=== PATIENT | female | born 1965 | race Caucasian/White ===

== ENCOUNTER 2021-02-01 11:10 | Emergency (ER) | payer MEDICARE, SELFPAY ==
[2021-02-01 11:53] VITALS: BP 151/91; PULSE 79; RESP 18; TEMP 36.8; O2SAT 100
--- NOTE | 2021-02-01 11:58 | DI.RAD.S_ITS ---
PROCEDURE: XR KNEE RT 3V INDICATIONS: right knee pain TECHNIQUE: 3 views of the knee were acquired. COMPARISON: None. FINDINGS: Bones: No fractures or dislocations. Mild cortical irregularity of the lateral femoral condyle. No suspicious bony lesions. Soft tissues: Trace joint effusion. No suspicious soft tissue calcifications. IMPRESSION: 1. No definitive acute abnormalities. 2. Mild cortical irregularity in the lateral femoral condyle. 3. A soft tissue density is noted in the medial aspect of the distal thigh. Differential diagnosis include hematoma, mass or artifact. Please correlate clinically. If clinically indicated, MRI may be helpful. Dictated by: Zev Morgan M.D. on 02/01/2021 at 12:49 Approved by: Zev Morgan M.D. on 02/01/2021 at 12:52
[2021-02-01] MEDS: CYCLOBENZAPRINE 10 MG TABLET PO (14:09)
[2021-02-01] MEDS: LIDOCAINE PATCH 1 EACH ADH..PATCH TOP (14:09)
--- NOTE | 2021-02-01 14:28 | ED_ITS ---
HPI - Extremity Injury (Lower) <ROCIO Dale-BC - Last Filed: 02/01/21 18:27> General Chief Complaint: Extremity Injury, Lower Stated Complaint: Rt knee injury Time Seen by Provider: 02/01/21 13:29 Source: patient Mode of arrival: Wheelchair Limitations: no limitations History of Present Illness HPI Narrative: The patient is a 55-year-old female nonsmoker who presents with a chief complaint of left knee pain for the past 3 weeks. She states that she was helping her daughter in her closet when she twisted her left knee and he did on the side of a wall. She states her knee now feels unstable. She went to a walk-in clinic a week after this happened, states that she has an appointment with Orthopedics at [facility]. However this appointment is not for almost 2 months. She presents today requesting an MRI of her knee. She does note that her pain has been worse over the past few days, correlating with increase in activity. She states that she uses Tylenol during the day, and is on chronic narcotics at night for her back pain. She has not taken anything for pain today. She states that she is allergic to NSAIDs. Related Data Previous Rx's Medication Instructions Recorded lidocaine 5 % topical patch 1 patch TOPICAL DAILY PRN #15 ea 02/01/21 Allergies Allergy/AdvReac Type Severity Reaction Status Date / Time metaxalone [From Skelaxin] Allergy Severe Anaphylaxis Verified 02/01/21 11:53 Sulfa (Sulfonamide Allergy Severe Anaphylaxis Verified 02/01/21 11:53 Antibiotics) Review of Systems <RICHARD Dale - Last Filed: 02/01/21 18:27> Review of Systems Narrative: GENERAL: Denies chills, fatigue, malaise, fever, sweats. HEENT: Denies sinus pain, ear pain, sore throat, difficulty swallowing, dizziness. RESPIRATORY: Denies dyspnea, cough, wheezing, hemoptysis, sputum. CARDIOVASCULAR: Denies chest pain, palpitations, orthopnea, edema, GASTROINTESTINAL: Denies nausea, vomiting, abdominal pain, diarrhea, constipation, melena. : Denies dysuria, frequency, incontinence, hematuria, urinary retention. MUSCULOSKELETAL: See HPI SKIN: Denies rash, skin lesions, or other NEUROLOGIC: Denies weakness, headache, numbness, change in speech, confusion, seizures, incoordination. PSYCHIATRIC: No concerning psychosocial issues. 12 point review of systems is negative except for those stated above Patient History <RICHARD Dale - Last Filed: 02/01/21 18:27> Social History Smoking Status: Never smoker Smoking Status: Never smoker alcohol intake frequency: holidays/special occasions only Substance Use Type: prescription drug Exam <RICHARD Dale - Last Filed: 02/01/21 18:27> Narrative Exam Narrative: GENERAL: This is a well-nourished, well-developed patient, in no acute distress EYES: Pupils equal round and reactive. Extraocular motions intact. No scleral icterus. No injection or drainage. ENT: Nose without bleeding, purulent drainage or septal hematoma. Wearing a mask. Airway patent. NECK: Trachea midline. No JVD or lymphadenopathy. Supple, nontender, no meningeal signs. CARDIOVASCULAR: Regular rate and rhythm RESPIRATORY: No cough. No increased respiratory effort. No accessory muscle use EXTREMITIES: Diffuse pain to palpation noted right knee, pain on anterior and posterior drawer, negative varus and valgus. Positive pedal pulses right foot. BACK: Nontender without deformity or crepitance. No flank tenderness. NEURO: AOx3. SKIN: No rash or erythema on visible skin Initial Vital Signs Initial Vital Signs: Vital Signs Temperature 98.2 F 02/01/21 11:53 Pulse Rate 79 02/01/21 11:53 Respiratory Rate 18 02/01/21 11:53 Blood Pressure 151/91 H 02/01/21 11:53 Pulse Oximetry 100 02/01/21 11:53 <Bigg Spivey DO - Last Filed: 02/02/21 07:16> Initial Vital Signs Initial Vital Signs: Vital Signs Temperature 98.2 F 02/01/21 11:53 Pulse Rate 79 02/01/21 11:53 Respiratory Rate 18 02/01/21 11:53 Blood Pressure 151/91 H 02/01/21 11:53 Pulse Oximetry 100 02/01/21 11:53 Procedures <RICHARD Dale - Last Filed: 02/01/21 18:27> Orthopedic Splinting/Casting Injury #1: Side: right Lower Extremity Injury Location: knee Lower Extremity Immobilizer: Mike wrap Post splinting neuro exam: intact Post splinting vascular exam: intact Placed by: Nursing Scores <RICHARD Dale - Last Filed: 02/01/21 18:27> GCS [place] coma scale eye opening: Spontaneous [place] coma scale verbal response: Orientated Nany coma scale motor response: Obey commands [place] coma scale total score: 15 <Bigg Spivey DO - Last Filed: 02/02/21 07:16> GCS Nany coma scale total score: 15 Course <RICHARD Dale - Last Filed: 02/01/21 18:27> Orders Ordered: Discontinued Medications Acetaminophen (Acetaminophen 325 Mg Tablet) 975 mg PO NOW ONE Stop: 02/01/21 15:01 Last Admin: 02/01/21 15:10 Dose: 975 mg Documented by: MELVIN Cyclobenzaprine HCl (Cyclobenzaprine 10 Mg Tablet) 10 mg PO NOW ONE Stop: 02/01/21 14:01 Last Admin: 02/01/21 14:09 Dose: 10 mg Documented by: BRI Gabapentin (Gabapentin 100 Mg Capsule) 100 mg PO NOW ONE Stop: 02/01/21 15:01 Last Admin: 02/01/21 15:23 Dose: Not Given Documented by: MELVIN Lidocaine (Lidocaine Patch 1 Each Adh..Patch) 1 each TOP NOW ONE Stop: 02/01/21 14:01 Last Admin: 02/01/21 14:09 Dose: 1 each Documented by: BRI Vital Signs Vital signs: Vital Signs - 8 hr 02/01/21 11:53 02/01/21 15:28 Temperature 98.2 F Pulse Rate 79 74 Respiratory Rate 18 17 Blood Pressure 151/91 H 162/86 H Pulse Oximetry 100 100 <Bigg Spivey DO - Last Filed: 02/02/21 07:16> Orders Ordered: Discontinued Medications Acetaminophen (Acetaminophen 325 Mg Tablet) 975 mg PO NOW ONE Stop: 02/01/21 15:01 Last Admin: 02/01/21 15:10 Dose: 975 mg Documented by: MELVIN Cyclobenzaprine HCl (Cyclobenzaprine 10 Mg Tablet) 10 mg PO NOW ONE Stop: 02/01/21 14:01 Last Admin: 02/01/21 14:09 Dose: 10 mg Documented by: BRI Gabapentin (Gabapentin 100 Mg Capsule) 100 mg PO NOW ONE Stop: 02/01/21 15:01 Last Admin: 02/01/21 15:23 Dose: Not Given Documented by: MELVIN Lidocaine (Lidocaine Patch 1 Each Adh..Patch) 1 each TOP NOW ONE Stop: 02/01/21 14:01 Last Admin: 02/01/21 14:09 Dose: 1 each Documented by: BRI Vital Signs Vital signs: Vital Signs - 8 hr 02/01/21 11:53 02/01/21 15:28 Temperature 98.2 F Pulse Rate 79 74 Respiratory Rate 18 17 Blood Pressure 151/91 H 162/86 H Pulse Oximetry 100 100 [facility] - Extremity Injury (Lower) <ROCIO Dale-BC - Last Filed: 02/01/21 18:27> Imaging Data Extremity x-ray #1: Radiologist's Impression: [address] [place] [address] XRay Report Signed Patient: Samra Abdullahi MR#: [id number] : 1965 Acct:[id number] Age/Sex: 55 / F Date of Service: 02/01/21 Loc: ED Accession Number: [id number] ?? Procedure: XR knee RT 3V Ordering Provider: Bigg Spivey D.O. PROCEDURE:? XR KNEE RT 3V ? INDICATIONS:? right knee pain ? TECHNIQUE:? 3 views of the knee were acquired.? ? COMPARISON:? None. ? FINDINGS:? ? Bones:? No fractures or dislocations.? Mild cortical irregularity of the lateral femoral condyle.? No suspicious bony lesions.? ? Soft tissues:? Trace joint effusion.? No suspicious soft tissue calcifications.? ? ? IMPRESSION:? ? 1. No definitive acute abnormalities. 2. Mild cortical irregularity in the lateral femoral condyle. 3.? A soft tissue density is noted in the medial aspect of the distal thigh.? Differential diagnosis include hematoma, mass or artifact.? Please correlate clinically.? If clinically indicated, MRI may be helpful. ? ? Dictated by: Zev Morgan M.D. on 02/01/2021 at 12:49 ? ? Approved by: Zev Morgan M.D. on 02/01/2021 at 12:52?? [facility] Narrative Medical decision making narrative: The patient is a 55-year-old female who presents with a chief complaint of knee pain from a twisting impact injury 3 weeks ago. She had negative x-rays at the walk-in clinic two weeks ago. She is neurovascularly intact, feels improved after the above-stated therapies, but declines prescriptions of Flexeril due to another doctor taking care of her back pain. I discussed at length follow up with primary care provider, continued follow-up with orthopedics as she has scheduled. Discussed the possibility of a soft tissue injury, also did discussed the possibility of a soft tissue density seen on x-ray and encouraged follow-up primary care provider regarding this. Patient is able to ambulate well, states complaint improved control of pain. Patient has no questions or concerns upon discharge states understanding return precautions as well as follow-up care. She has been nontoxic and neurovascularly intact throughout her stay in the ER. Discharge Plan Departure Patient Disposition: Home Clinical Impression: Acute knee pain Qualifiers: Laterality: right Qualified Code(s): M25.561 - Pain in right knee Instructions: DI for Knee Sprain, How To Perform RICE (Rest, Ice, Compress, Elevate), DI for Knee Pain, How to Apply an Elastic Wrap on Knee Activity Restrictions/Additional Instructions: Thank you for trusting us with your care today. As I discussed, your x-ray shows no acute fracture. This does not rule out a soft tissue injury such as a ligament or tendon injury. It is important that y ou follow up with primary care provider, especially if worsening or no improvement. There can be fractures that did not show up on initial x-ray. As discussed, there is a soft tissue irregularity on your lower thigh. Please follow-up with primary care provider, you may need further imaging regarding this. I did send a prescription of lidocaine patches to [facility] in [place] I suggest keeping your appointment with Orthopedics. I have included information regarding how to Mike wrap your knee. Please come back to the emergency department for any acute concerns. Prescriptions: New lidocaine 5 % adhesive patch,medicated 1 patch topical DAILY PRN (Reason: pain ) Qty: 15 RF: 0 Referrals: Guerrero Gilman MD [Non-Staff] - <Bigg Spivey DO - Last Filed: 02/02/21 07:16> Cosign ED Attending Cosignature Attestation: Dr Spivey Co-Sign Statement: I was available for consultation during this patient's emergency department visit. This chart is signed by myself for administrative purposes only. I did not have direct contact with this patient during this visit. They were seen independently by the APC.
[2021-02-01] MEDS: ACETAMINOPHEN 325 MG TABLET 975 MG PO (15:10)
--- NOTE | 2021-02-01 15:25 | PC.NURSE ---
Applied Mike wrap to the right knee. Patient teaching on how to apply it herself. Patient declined the Gabapentin.
[2021-02-01 15:28] VITALS: BP 162/86; PULSE 74; RESP 17; O2SAT 100
== END 2021-02-01 15:53 | disposition home or self-care (01) ==
PROVIDERS: Emergency Provider Nurse Practitioner Family
DX: M25.561 Pain in right knee (principal)
CPT/HCPCS: 73562; 99283

== ENCOUNTER 2021-07-28 08:17 | Emergency (ER) | payer MEDICARE, SELFPAY ==
[2021-07-28 08:29] VITALS: BP 167/87; PULSE 83; RESP 18; O2SAT 100; BMI 32.2
--- NOTE | 2021-07-28 08:47 | DI.CT.S_ITS ---
PROCEDURE: CT ABDOMEN PELVIS W CON INDICATIONS: IV contrast only/lower abdominal pain TECHNIQUE: After the administration of intravenous contrast, axial sections acquired from the lung bases to the pubic symphysis. Coronal and sagittal reformats were performed. For radiation dose reduction, the following was used: automated exposure control, adjustment of mA and/or kV according to patient size. COMPARISON: None. FINDINGS: Image quality: Excellent. Lung bases: Lung bases are clear. Heart size is normal. Solid organs: Liver: The liver has no mass or intrahepatic biliary ductal dilatation. The portal vein and hepatic veins are patent. The liver has hepatic steatosis. Biliary: The gallbladder has no gallstones, pericholecystic fluid, gallbladder wall thickening, or surrounding inflammatory change. Pancreas: The pancreas has no mass or ductal dilatation. There is no surrounding inflammation. Spleen: Normal size. There are no masses. Adrenals: No hypertrophy or nodules. Kidneys: No obstructive calculus or hydronephrosis. No solid mass. No cystic mass. Peritoneum and bowel: The distal esophagus and stomach are normal. The small bowel has a normal caliber and appearance. The terminal ileum is normal. The large bowel has a normal caliber and appearance. The appendix is not definitively visualized and therefore acute appendicitis cannot be excluded; however there are no secondary findings to suggest acute appendicitis. No free fluid or air. Nodes and vessels: No retroperitoneal or mesenteric adenopathy by size criteria. Aorta and inferior vena cava are normal in size. Miscellaneous: No abdominal wall mass or hernia. PELVIS: Genitourinary: The bladder has no wall thickening or mass. No bladder calcifications. Bones: No suspicious bony lesions. No vertebral body compression fractures. IMPRESSION: No acute abdominal or pelvic abnormality. Dictated by: Kamari Fernando M.D. on 07/28/2021 at 9:12 Approved by: Kamari Fernando M.D. on 07/28/2021 at 9:21
--- NOTE | 2021-07-28 08:52 | ED_ITS ---
HPI - Abdominal Pain General Chief Complaint: Abdominal Pain Stated Complaint: abd pain burning & bleeding bowel movements Time Seen by Provider: 07/28/21 08:46 Source: patient Mode of arrival: Ambulatory History of Present Illness HPI narrative: Patient here for left lower quadrant abdominal discomfort as well as left upper quadrant. Started 1 week ago. Three days ago started with watery diarrhea and sometimes mixed with blood. History of colonoscopy in the past. Was informed has diverticulosis. Also history of IBS. Denies any sick contacts. No urinary complaints. Pain is crampy and sharp pain. It does not radiate. brought patient here this morning. Patient is allergic to tramadol but is not allergic to morphine and Dilaudid. She has had those before. Related Data Previous Rx's Medication Instructions Recorded lidocaine 5 % topical patch 1 patch TOPICAL DAILY PRN #15 ea 02/01/21 hydrocodone 5 mg-acetaminophen 325 1 tab PO Q6H PRN #14 tab 07/28/21 mg tablet ondansetron 4 mg disintegrating 4 mg PO Q8H PRN #10 tab 07/28/21 tablet Allergies Allergy/AdvReac Type Severity Reaction Status Date / Time metaxalone [From Skelaxin] Allergy Severe Anaphylaxis Verified 07/31/21 16:26 Sulfa (Sulfonamide Allergy Severe Anaphylaxis Verified 07/31/21 16:26 Antibiotics) tramadol Allergy Anaphylaxis Verified 07/31/21 16:26 ssri Allergy Anaphylaxis Uncoded 07/31/21 16:26 Review of Systems Review of Systems Narrative: GENERAL: Denies chills, fatigue, malaise, fever, sweats. HEENT: Denies sinus pain, ear pain, sore throat RESPIRATORY: Denies dyspnea, cough CARDIOVASCULAR: Denies chest pain, palpitations GASTROINTESTINAL: Denies nausea, vomiting, positive for diarrhea and abdominal pain : Denies dysuria, frequency, hematuria MUSCULOSKELETAL: denies muscle or bony pain SKIN: Denies rash, skin lesions NEUROLOGIC: Denies weakness, numbness ROS Unobtainable: All systems reviewed & are unremarkable except as noted in HPI and below Patient History Social History Smoking Status: Never smoker Smoking Status: Never smoker alcohol intake frequency: holidays/special occasions only Substance Use Type: prescription drug Exam Narrative Exam Narrative: GENERAL: in no distress, not toxic not dyspneic HEAD: Normocephalic. EYES: Pupils equal round No scleral icterus. NECK: Trachea midline. CARDIOVASCULAR: Regular rate and rhythm without murmurs RESPIRATORY: Clear to auscultation. Breath sounds equal bilaterally. No wheezes, rales, or rhonchi. GASTROINTESTINAL: Abdomen soft, reproducible left upper quadrant and left lower quadrant tenderness, no peritoneal signs, bowel sounds are present. EXTREMITIES: No gross deformities. BACK: No flank tenderness. NEURO: AOx4. SKIN: Warm and dry PSYCH: Not anxious, is cooperative Initial Vital Signs Initial Vital Signs: Vital Signs Pulse Rate 83 07/28/21 08:29 Respiratory Rate 18 07/28/21 08:29 Blood Pressure 167/87 H 07/28/21 08:29 Pulse Oximetry 100 07/28/21 08:29 Course Course Course Narrative: No new issues during course of stay Orders Ordered: Discontinued Medications Hydrocodone Bitart/Acetaminophen (Hydrocodone/Acet 5/325 Tablet) 2 tab PO NOW ONE Stop: 07/28/21 10:12 Last Admin: 07/28/21 10:14 Dose: 2 tab Documented by: SEVERIANO Sodium Chloride (Normal Saline 0.9%) 1,000 mls @ 1,000 mls/hr IV BOLUS ONE Stop: 07/28/21 09:46 Last Infusion: 07/28/21 09:55 Dose: 0 mls/hr Documented by: Admin: 07/28/21 09:01 Dose: 1,000 mls/hr Documented by: SEVERIANO Morphine Sulfate (Morphine 4 Mg/Ml Inj) 4 mg IV NOW ONE Stop: 07/28/21 08:52 Last Admin: 07/28/21 09:01 Dose: 4 mg Documented by: SEVERIANO Ondansetron HCl (Ondansetron 4 Mg/2 Ml Inj) 4 mg IV NOW ONE Stop: 07/28/21 08:52 Last Admin: 07/28/21 09:01 Dose: 4 mg Documented by: SEVERIANO Reevaluation(s) Reevaluation #1: Patient still has left side abdominal pain. at bedside. Reviewed results with them. At this time no focal findings on blood work or imaging to explain her abdominal pain. However at this time appropriate for discharge home and follow-up with primary care as well as colonoscopy referral. I did give patient general surgeon phone number to call today to make appointment. Prescription for pain control given to patient. Return precautions reviewed with him. They do desire discharge home. They desire to be discharged home and not wait for results of viral swab Time: 10:08 Vital Signs Vital signs: Vital Signs - 8 hr 07/28/21 08:29 07/28/21 09:55 Pulse Rate 83 86 Respiratory Rate 18 Blood Pressure 167/87 H 174/105 H Pulse Oximetry 100 99 MDM - Abdominal Pain Differential Diagnosis Differential diagnosis: Likely abdominal pain, acute appendicitis, diverticulitis, gastroenteritis and small bowel obstruction Lab Data Result diagrams: 07/28/21 08:40 07/28/21 08:40 Labs: Lab Results 07/28/21 07/28/21 07/28/21 Range/Units 08:40 08:40 09:48 WBC 10.0 (4.5-11.0) X10^3/uL RBC 4.70 (4.0-5.2) X10^6/uL Hgb 13.8 (12.0-16.0) g/dL Hct 41.4 (36-46) % MCV 87.9 (80-100) fL MCH 29.2 (26-34) PG MCHC 33.3 (30-36) % RDW 13.8 (11.6-14.8) % Plt Count 236 (150-400) X10^3/uL Neut % (Auto) 70.6 (50-75) % Lymph % (Auto) 18.7 L (25-40) % Hill % (Auto) 8.2 (3-14) % Eos % (Auto) 2.0 (2-4) % Baso % (Auto) 0.5 (0-2) % Neut # (Auto) 7000 (6059-2749) /uL Lymph # (Auto) 1900 (4731-5210) /uL Hill # (Auto) 800 (0-900) /uL Eos # (Auto) 200 (0-450) /uL Baso # (Auto) 0 (0-100) /uL Sodium 142 (137-145) mmol/L Potassium 4.7 (3.4-5.1) mmol/L Chloride 105 (98-107) mmol/L Carbon Dioxide 28 (22-32) mmol/L BUN 15 (7-17) mg/dL Creatinine 0.74 (0.52-1.04) mg/dL Estimated GFR > 60 (>60) mL/min BUN/Creatinine Ratio 20.3 (6-22) Glucose 100 (70-100) mg/dL Calcium 9.2 (8.4-10.2) mg/dL Total Bilirubin 0.6 (0.2-1.3) mg/dL AST 57 H (14-36) IU/L ALT 88 H (<35) IU/L Alkaline Phosphatase 110 (38-126) U/L Total Protein 9.0 H (6.3-8.2) g/dL Albumin 4.9 (3.5-5.0) g/dL Globulin 4.1 (1.7-4.1) g/dL Albumin/Globulin Ratio 1.2 (1.0-2.8) Lipase 106 (23-300) U/L Chlamy pneumoniae PCR Not detected (Not Detect) Adenovirus (PCR) Not detected (Not Detect) B. pertussis DNA (PCR) Not detected (Not Detecte) B.parapertussis DNA PCR Not detected (Not Detecte) Coronavirus OC43 (PCR) Not detected (Not Detect) Coronavirus HKU1 (PCR) Not detected (Not Detect) Coronavirus 229E (PCR) Not detected (Not Detect) SARS-CoV-2 (PCR) Not detected (Not Detecte) Coronavirus NL63 (PCR) Not detected (Not Detect) Human Metapneumovir PCR Not detected (Not Detect) Influenza Type A (PCR) Not detected (Not Detect) Influenza Type B (PCR) Not detected (Not Detect) M. pneumoniae (PCR) Not detected (Not Detect) Parainfluenza 1 (PCR) Not detected (Not Detect) Parainfluenza 2 (PCR) Not detected (Not Detect) Parainfluenza 3 (PCR) Not detected (Not Detect) Parainfluenza 4 (PCR) Not detected (Not Detect) RSV (PCR) Not detected (Not Detect) Entero/Rhino (PCR) Not detected (Not Detect) Point of care testing: Point of Care Testing Test Results Negative Urine Dip Bedside Urine Glucose Negative Bedside Urine Bilirubin - Negative Bedside Urine Ketone - Negative Urine Specific [place] 1.030 Bedside Urine Occult Blood - Negative Bedside Urine pH 6.0 Bedside Urine Protein - Negative Bedside Urine Urobilinogen 0.2 Bedside Urine Nitrite - Negative Bedside Urine Leukocytes - Negative Esterase Imaging Data CT scan - abdomen/pelvis: Radiologist's Impression: [address] [id number] [address] Scan Report Signed Patient: Samra Abdullahi MR#: [id number] : 1965 Acct:[id number] Age/Sex: 55 / F Date of Service: 07/28/21 Loc: ED Accession Number: [id number] ?? Procedure: CT abdomen pelvis w con Ordering Provider: Darek Ross MD PROCEDURE:? CT ABDOMEN PELVIS W CON ? INDICATIONS:? IV contrast only/lower abdominal pain ? TECHNIQUE:? After the administration of intravenous contrast, axial sections acquired from the lung bases to the pubic symphysis.? Coronal and sagittal reformats were performed.? For radiation dose reduction, the following was used:? automated exposure control, adjustment of mA and/or kV according to patient size.? ? COMPARISON:? None. ? FINDINGS: Image quality:? Excellent.? ? Lung bases:? Lung bases are clear.? Heart size is normal. ? Solid organs:? Liver: The liver has no mass or intrahepatic biliary ductal dilatation. The portal vein and hepatic veins are patent.? The liver has hepatic steatosis. Biliary: The gallbladder has no gallstones, pericholecystic fluid, gallbladder wall thickening, or surrounding inflammatory change. Pancreas: The pancreas has no mass or ductal dilatation. There is no surrounding inflammation. Spleen: Normal size. There are no masses. Adrenals: No hypertrophy or nodules. Kidneys: No obstructive calculus or hydronephrosis.? No solid mass. No cystic mass. ? Peritoneum and bowel:? The distal esophagus and stomach are normal.? The small bowel has a normal caliber and appearance. The terminal ileum is normal. The large bowel has a normal caliber and appearance.? The appendix is not definitively visualized and therefore acute appendicitis cannot be excluded; however there are no secondary findings to suggest acute appendicitis.? No free fluid or air.? ? Nodes and vessels:? No retroperitoneal or mesenteric adenopathy by size criteria.? Aorta and inferior vena cava are normal in size.? ? Miscellaneous:? No abdominal wall mass or hernia. ? PELVIS:? Genitourinary:? The bladder has no wall thickening or mass. No bladder rachael cifications. ? Bones:? No suspicious bony lesions.? No vertebral body compression fractures.? ? IMPRESSION:? No acute abdominal or pelvic abnormality. ? ? Dictated by: Kamari Fernando M.D. on 07/28/2021 at 9:12 ? ? Approved by: Kamari Fernando M.D. on 07/28/2021 at 9:21 ? MDM Narrative Medical decision making narrative: Appropriate for discharge home. Exam and laboratory studies and imaging otherwise reassuring. Liver enzymes noted on blood work but nonspecific. Patient has left-sided abdominal discomfort. Not right-sided. Patient has had hydrocodone prescriptions in the past. No side effects. Return precautions reviewed with patient and . Referral for general surgeon and colonoscopy given. Not toxic at discharge. Patient and desire discharge home. No antibiotics indicated this time. Appropriate for short course of pain medication, no fever here. White cell count normal. Discharge Plan Departure Patient Disposition: Home Clinical Impression: Abdominal pain Instructions: DI for Abdominal Pain-Adult Activity Restrictions/Additional Instructions: No driving operating machinery today are when taking prescribed pain medication. Please see your family doctor for referral for colonoscopy or call provided general surgeon office today to schedule for colonoscopy. Return if worse or any questions or concerns. Prescriptions: New hydrocodone-acetaminophen 5-325 mg tablet 1 tab PO Q6H PRN (Reason: pain) Qty: 14 0RF ondansetron 4 mg tablet,disintegrating 4 mg PO Q8H PRN (Reason: nausea and vomiting) Qty: 10 0RF No Action lidocaine 5 % adhesive patch,medicated 1 patch topical DAILY PRN (Reason: pain ) Qty: 15 0RF Rx Instructions: leave on most painful area for up to 12 hrs Referrals: Jonn Mills MD [Physician] - Misstephanie,MD Stacey [Primary Care Provider] -
[2021-07-28 08:53] LABS: Add Manual Diff / Slide Review NO; Basophils Absolute Auto 0 /uL (0-100); Basophils Percent Auto 0.5 % (0-2); Eosinophils Absolute Auto 200 /uL (0-450); Hematocrit 41.4 % (36-46); Hemoglobin 13.8 g/dL (12.0-16.0); Lymphocytes Absolute Auto 1900 /uL (1100-4500); Lymphocytes Percent Auto 18.7 % (25-40); Mean Corpuscular HGB Conc 33.3 % (30-36); Mean Corpuscular Hemoglobin 29.2 PG (26-34); Mean Corpuscular Volume 87.9 fL (80-100); Monocytes Absolute Auto 800 /uL (0-900); Monocytes Percent Auto 8.2 % (3-14); Neutrophils Absolute Auto 7000 /uL (1500-7000); Neutrophils Percent Auto 70.6 % (50-75); Platelet Count 236 X10^3/uL (150-400); Red Cell Distribution Width 13.8 % (11.6-14.8)
[2021-07-28] MEDS: MORPHINE 4 MG/ML INJ IV (09:01)
[2021-07-28] MEDS: ONDANSETRON 4 MG/2 ML INJ IV (09:01)
[2021-07-28] MEDS: SODIUM CHLORIDE 0.9% 1,000 ML 1000 ML IV (09:01)
[2021-07-28 09:04] LABS: Alanine Aminotransferase 88 IU/L (<35); Albumin 4.9 g/dL (3.5-5.0); Albumin Globulin Ratio 1.2 (1.0-2.8); Alkaline Phosphatase 110 U/L (38-126); Aspartate Aminotransferase 57 IU/L (14-36); BUN Creatinine Ratio 20.3 (6-22); Bilirubin Total 0.6 mg/dL (0.2-1.3); Blood Urea Nitrogen 15 mg/dL (7-17); Calcium 9.2 mg/dL (8.4-10.2); Carbon Dioxide 28 mmol/L (22-32); Chloride 105 mmol/L (98-107); Estimated Glomerular Filt Rate > 60 mL/min (>60); Globulin 4.1 g/dL (1.7-4.1); Glucose 100 mg/dL (70-100); Lipase 106 U/L (23-300); Potassium 4.7 mmol/L (3.4-5.1); Sodium 142 mmol/L (137-145)
[2021-07-28 09:07] LABS: HEMOLYSIS 52 (0-50)
[2021-07-28 09:55] VITALS: BP 174/105; PULSE 86; O2SAT 99
[2021-07-28] MEDS: HYDROCODONE/ACET 5/325 TABLET 2 TAB PO (10:14)
[2021-07-28 11:05] LABS: Adenovirus Not Detected (Not Detect); B. parapertussis Not Detected (Not Detecte); Bordetella pertussis Not Detected (Not Detecte); Chlamydophila pneumoniae Not Detected (Not Detect); Coronavirus 229E Not Detected (Not Detect); Coronavirus HKU1 Not Detected (Not Detect); Coronavirus NL 63 Not Detected (Not Detect); Coronavirus OC43 Not Detected (Not Detect); Human Metapneumovirus Not Detected (Not Detect); Human Rhinovirus/Enterovirus Not Detected (Not Detect); Influenza A Not Detected (Not Detect); Influenza B Not Detected (Not Detect); Mycoplasma pneumoniae Not Detected (Not Detect); Parainfluenza Virus 1 Not Detected (Not Detect); Parainfluenza Virus 2 Not Detected (Not Detect); Parainfluenza Virus 3 Not Detected (Not Detect); Parainfluenza Virus 4 Not Detected (Not Detect); Respiratory Syncytial Virus Not Detected (Not Detect); SARS- CoV-2 Not Detected (Not Detecte)
== END 2021-07-28 10:17 | disposition home or self-care (01) ==
PROVIDERS: Emergency Provider Emergency Medicine
DX: R10.12 Left upper quadrant pain (principal); R10.32 Left lower quadrant pain; R19.7 Diarrhea, unspecified
CPT/HCPCS: 36415; 74177; 80053; 81003; 81025; 83690; 85025; 87633; 96374; 96375; 99284; J2270; J2405; Q9967

== ENCOUNTER 2021-07-31 13:19 | Emergency (ER) | payer MEDICARE, SELFPAY ==
[2021-07-31] VITALS (9 sets, daily range): BP systolic 153–177; BP diastolic 74–124; PULSE 74–89; RESP 20; TEMP 36.6–37; O2SAT 95–100
--- NOTE | 2021-07-31 13:45 | PC.NURSE ---
pt not found in waiting room or surrounding areas x2 checks 1340
[2021-07-31 14:32] LABS: Add Manual Diff / Slide Review NO; Basophils Absolute Auto 0 /uL (0-100); Basophils Percent Auto 0.4 % (0-2); Eosinophils Absolute Auto 200 /uL (0-450); Eosinophils Percent Auto 2.8 % (2-4); Hematocrit 41.5 % (36-46); Hemoglobin 13.8 g/dL (12.0-16.0); Lymphocytes Absolute Auto 2200 /uL (1100-4500); Lymphocytes Percent Auto 25.6 % (25-40); Mean Corpuscular HGB Conc 33.3 % (30-36); Mean Corpuscular Hemoglobin 29.2 PG (26-34); Mean Corpuscular Volume 87.7 fL (80-100); Monocytes Absolute Auto 600 /uL (0-900); Monocytes Percent Auto 7.6 % (3-14); Neutrophils Absolute Auto 5400 /uL (1500-7000); Neutrophils Percent Auto 63.6 % (50-75); Platelet Count 227 X10^3/uL (150-400); Red Blood Cell Count 4.74 X10^6/uL (4.0-5.2); Red Cell Distribution Width 13.9 % (11.6-14.8); White Blood Cell Count 8.4 X10^3/uL (4.5-11.0)
[2021-07-31 14:36] LABS: Alanine Aminotransferase 91 IU/L (<35); Albumin Globulin Ratio 1.2 (1.0-2.8); Alkaline Phosphatase 115 U/L (38-126); Aspartate Aminotransferase 53 IU/L (14-36); BUN Creatinine Ratio 22.5 (6-22); Bilirubin Total 0.4 mg/dL (0.2-1.3); Blood Urea Nitrogen 16 mg/dL (7-17); Carbon Dioxide 28 mmol/L (22-32); Chloride 104 mmol/L (98-107); Estimated Glomerular Filt Rate > 60 mL/min (>60); Globulin 4.2 g/dL (1.7-4.1); Glucose 111 mg/dL (70-100); HEMOLYSIS < 15 (0-50); Lipase 41 U/L (23-300); Potassium 4.1 mmol/L (3.4-5.1); Sodium 142 mmol/L (137-145); Total Protein 9.2 g/dL (6.3-8.2)
--- NOTE | 2021-07-31 16:06 | ED_ITS ---
HPI - Abdominal Pain <Miladis Mitchell PA-C - Last Filed: 07/31/21 18:25> General Chief Complaint: Abdominal Pain Stated Complaint: Stomach pain Time Seen by Provider: 07/31/21 16:00 Source: patient Mode of arrival: Ambulatory History of Present Illness HPI narrative: 55-year-old female with past medical history hypertension, IBS presents to the ED with abdominal pain, diarrhea. Patient states that her symptoms 1st started 10 days ago with epigastric pain, left lower quadrant pain, diarrhea. Patient was seen in the ED on 07/28/2021 for the same symptoms, had negative labs and CT abdomen pelvis. Patient reports that her symptoms have worsened since then, and that she noticed a small amount of blood in her stool this morning. Patient called her GI specialist Renetta Muniz in the [facility], spoke with the nurse, who sent her to the ED for further evaluation. The GI office was consulted by phone, and their recommendation was to do a stool study, rule out dehydration, repeat a CT if abdominal exam is not benign. Patient denies fever, chills, chest pain, shortness of breath, nausea, vomiting, dysuria, flank pain. Patient endorses epigastric pain, left lower quadrant pain that she describes as cramping. Related Data Previous Rx's Medication Instructions Recorded lidocaine 5 % topical patch 1 patch TOPICAL DAILY PRN #15 ea 02/01/21 hydrocodone 5 mg-acetaminophen 325 1 tab PO Q6H PRN #14 tab 07/28/21 mg tablet ondansetron 4 mg disintegrating 4 mg PO Q8H PRN #10 tab 07/28/21 tablet Allergies Allergy/AdvReac Type Severity Reaction Status Date / Time metaxalone [From Skelaxin] Allergy Severe Anaphylaxis Verified 07/31/21 16:26 Sulfa (Sulfonamide Allergy Severe Anaphylaxis Verified 07/31/21 16:26 Antibiotics) tramadol Allergy Anaphylaxis Verified 07/31/21 16:26 ssri Allergy Anaphylaxis Uncoded 07/31/21 16:26 Review of Systems <Miladis Mitchell PA-C - Last Filed: 07/31/21 18:25> Review of Systems ROS Unobtainable: All systems reviewed & are unremarkable except as noted in HPI and below Constitutional Constitutional: Denies chills, Denies fatigue, Denies fever(s), Denies frequent falls, Denies lethargy and Denies weakness Eyes Eyes: Denies change in vision, Denies eye discharge, Denies irritation and Denies loss of vision ENT Ears, Nose, Mouth, and Throat: Denies change in voice, Denies dizziness, Denies neck pain, Denies sore throat and Denies throat swelling Cardiovascular Cardiovascular: Denies chest pain, Denies irregular heart rhythm, Denies lightheadedness, Denies palpitations, Denies dyspnea, Denies dyspnea on exertion and Denies orthopnea Respiratory Respiratory: Denies cough, Denies dyspnea, Denies dyspnea on exertion and Denies wheezing Gastrointestinal Gastrointestinal: Reports abdominal pain, Denies change in bowel habits, Reports diarrhea, Denies nausea and Denies vomiting Comments: Blood in stool Genitourinary Genitourinary: Denies hematuria, Denies flank pain, Denies urinary incontinence and Denies urinary urgency Musculoskeletal Musculoskeletal: Denies back pain, Denies muscle weakness, Denies neck pain, Denies numbness and Denies tingling Integumentary/Breasts Skin/Breast: Denies pruritus, Denies erythema, Denies rash and Denies wounds Neurologic Neurologic: Denies behavioral changes, Denies confusion, Denies dizziness, Denies frequent falls, Denies loss of vision, Denies numbness, Denies tingling and Denies weakness Psychiatric Psychiatric: Denies anxiety, Denies behavioral changes, Denies confusion, Denies depression, Denies homicidal ideation and Denies suicidal ideation Endocrine Endocrine: Denies fatigue, Denies flushing and Denies palpitations Hematologic/Lymphatic Hematologic/Lymphatic: Denies easy bruising Allergic/Immunologic Allergic/Immunologic: Denies urticaria, Denies throat swelling and Denies wheezing Patient History <Miladis Mitchell PA-C - Last Filed: 07/31/21 18:25> Social History Smoking Status: Never smoker Smoking Status: Never smoker alcohol intake frequency: holidays/special occasions only Substance Use Type: prescription drug Exam <Miladis Mitchell PA-C - Last Filed: 07/31/21 18:25> Initial Vital Signs Initial Vital Signs: Vital Signs Temperature 97.8 F 07/31/21 13:58 Pulse Rate 83 07/31/21 13:58 Respiratory Rate 20 07/31/21 13:58 Blood Pressure 169/96 H 07/31/21 13:58 Pulse Oximetry 99 07/31/21 13:58 Const General: cooperative, healthy appearing and comfortable Eyes General: Yes appearance normal, both eyes and all related structures Resp Effort & Inspection: normal respiratory effort Auscultation: clear to auscultation bilaterally Cardio Rate: regular rate Rhythm: regular rhythm GI Other: Abdomen is soft, nondistended. Abdomen is significantly tender to palpation in the epigastric, lower left quadrant, suprapubic regions. No CVA tenderness. Skin General: no rashes or lesions noted Neuro General: patient alert, patient awake and patient oriented x3 Psych Appearance: grossly normal Mental Status: mental status grossly normal <Jenifer Paz DO - Last Filed: 08/02/21 07:54> Initial Vital Signs Initial Vital Signs: Vital Signs Temperature 97.8 F 07/31/21 13:58 Pulse Rate 83 07/31/21 13:58 Respiratory Rate 20 07/31/21 13:58 Blood Pressure 169/96 H 07/31/21 13:58 Pulse Oximetry 99 07/31/21 13:58 Course <Miladis Mitchell PA-C - Last Filed: 07/31/21 18:25> Orders Ordered: Discontinued Medications Al Hydrox/Mg Hydrox/Simethicone 20 ml/ Lidocaine HCl 15 ml 0 ml PO NOW ONE Stop: 07/31/21 16:23 Last Admin: 07/31/21 16:31 Dose: 45 ml Documented by: MOON Famotidine (Famotidine 20 Mg/2 Ml Vial) 40 mg IV NOW FOR[facility]LY [facility], 1928–1983 Famotidine (Famotidine 20 Mg/2 Ml Vial) 20 mg IV NOW FORMERLY [facility], [facility]1983 Last Admin: 07/31/21 16:32 Dose: 20 mg Documented by: MICHELLETE Famotidine (Famotidine 20 Mg/2 Ml Vial) 20 mg IV NOW FORMERLY [facility], 1928–1983 Last Admin: 07/31/21 16:32 Dose: 20 mg Documented by: MICHELLETE Morphine Sulfate (Morphine 4 Mg/Ml Inj) 4 mg IV NOW ONE Stop: 07/31/21 16:23 Last Admin: 07/31/21 16:33 Dose: 4 mg Documented by: MICHELLETE Morphine Sulfate (Morphine 4 Mg/Ml Inj) 4 mg IV NOW ONE Stop: 07/31/21 18:05 Last Admin: 07/31/21 18:22 Dose: 4 mg Documented by: BTONER Vital Signs Vital signs: Vital Signs - 8 hr 07/31/21 13:58 07/31/21 15:43 07/31/21 15:44 Temperature 97.8 F Pulse Rate 83 79 Respiratory Rate 20 Blood Pressure 169/96 H 165/124 H Pulse Oximetry 99 95 97 07/31/21 16:00 07/31/21 16:01 07/31/21 16:30 Temperature Pulse Rate 85 85 78 Respiratory Rate Blood Pressure 153/74 H Pulse Oximetry 100 100 99 07/31/21 16:43 07/31/21 17:00 Temperature Pulse Rate 80 89 Respiratory Rate Blood Pressure 177/99 H Pulse Oximetry 99 99 <Jenifer Paz, DO - Last Filed: 08/02/21 07:54> Orders Ordered: Discontinued Medications Al Hydrox/Mg Hydrox/Simethicone 20 ml/ Lidocaine HCl 15 ml 0 ml PO NOW ONE Stop: 07/31/21 16:23 Last Admin: 07/31/21 16:31 Dose: 45 ml Documented by: MOON Famotidine (Famotidine 20 Mg/2 Ml Vial) 40 mg IV NOW FOR[facility]LY [facility], [facility]1983 Famotidine (Famotidine 20 Mg/2 Ml Vial) 20 mg IV NOW [facility], [facility] Last Admin: 07/31/21 16:32 Dose: 20 mg Documented by: MOON Famotidine (Famotidine 20 Mg/2 Ml Vial) 20 mg IV NOW FOR[facility]LY [facility], [facility]1983 Last Admin: 07/31/21 16:32 Dose: 20 mg Documented by: MOON Morphine Sulfate (Morphine 4 Mg/Ml Inj) 4 mg IV NOW ONE Stop: 07/31/21 16:23 Last Admin: 07/31/21 16:33 Dose: 4 mg Documented by: MOON Morphine Sulfate (Morphine 4 Mg/Ml Inj) 4 mg IV NOW ONE Stop: 07/31/21 18:05 Last Admin: 07/31/21 18:22 Dose: 4 mg Documented by: BTONER Vital Signs Vital signs: Vital Signs - 8 hr 07/31/21 13:58 07/31/21 15:43 07/31/21 15:44 Temperature 97.8 F Pulse Rate 83 79 Respiratory Rate 20 Blood Pressure 169/96 H 165/124 H Pulse Oximetry 99 95 97 07/31/21 16:00 07/31/21 16:01 07/31/21 16:30 Temperature Pulse Rate 85 85 78 Respiratory Rate Blood Pressure 153/74 H Pulse Oximetry 100 100 99 07/31/21 16:43 07/31/21 17:00 Temperature Pulse Rate 80 89 Respiratory Rate Blood Pressure 177/99 H Pulse Oximetry 99 99 MDM - Abdominal Pain <Hyma JAVIER Mitchell - Last Filed: 07/31/21 18:25> Lab Data Lab results narrative: Labs within normal limits. UA negative for UTI. Result diagrams: 07/31/21 14:05 07/31/21 14:05 Labs: Lab Results 07/31/21 07/31/21 Range/Units 14:05 14:05 WBC 8.4 (4.5-11.0) X10^3/uL RBC 4.74 (4.0-5.2) X10^6/uL Hgb 13.8 (12.0-16.0) g/dL Hct 41.5 (36-46) % MCV 87.7 (80-100) fL MCH 29.2 (26-34) PG MCHC 33.3 (30-36) % RDW 13.9 (11.6-14.8) % Plt Count 227 (150-400) X10^3/uL Neut % (Auto) 63.6 (50-75) % Lymph % (Auto) 25.6 (25-40) % Dyer % (Auto) 7.6 (3-14) % Eos % (Auto) 2.8 (2-4) % Baso % (Auto) 0.4 (0-2) % Neut # (Auto) 5400 (0143-8732) /uL Lymph # (Auto) 2200 (6183-5829) /uL Dyer # (Auto) 600 (0-900) /uL Eos # (Auto) 200 (0-450) /uL Baso # (Auto) 0 (0-100) /uL Sodium 142 (137-145) mmol/L Potassium 4.1 (3.4-5.1) mmol/L Chloride 104 (98-107) mmol/L Carbon Dioxide 28 (22-32) mmol/L BUN 16 (7-17) mg/dL Creatinine 0.71 (0.52-1.04) mg/dL Estimated GFR > 60 (>60) mL/min BUN/Creatinine Ratio 22.5 H (6-22) Glucose 111 H (70-100) mg/dL Calcium 10.0 (8.4-10.2) mg/dL Total Bilirubin 0.4 (0.2-1.3) mg/dL AST 53 H (14-36) IU/L ALT 91 H (<35) IU/L Alkaline Phosphatase 115 (38-126) U/L Total Protein 9.2 H (6.3-8.2) g/dL Albumin 5.0 (3.5-5.0) g/dL Globulin 4.2 H (1.7-4.1) g/dL Albumin/Globulin Ratio 1.2 (1.0-2.8) Lipase 41 D (23-300) U/L Point of care testing: Point of Care Testing Test Results Negative Urine Dip Bedside Urine Glucose Negative Bedside Urine Bilirubin - Negative Bedside Urine Ketone - Negative Urine Specific [place] 1.015 Bedside Urine Occult Blood - Negative Bedside Urine pH 6 Bedside Urine Protein - Negative Bedside Urine Urobilinogen - Negative Bedside Urine Nitrite - Negative Bedside Urine Leukocytes - Negative Esterase Imaging Data CT scan - abdomen/pelvis: Radiologist's Impression: PROCEDURE:? CT ABDOMEN PELVIS W CON ? INDICATIONS:? LLQ, epigastric pain ? TECHNIQUE:? After the administration of oral and IV contrast, axial sections were acquired from the lung bases to the pubic symphysis.? Coronal and sagittal reformats were performed.? For radiation dose reduction, the following was used:? automated exposure control, adjustment of mA and/or kV according to patient size. ? COMPARISON:? [facility], CT, CT ABDOMEN PELVIS W CON, 07/28/2021, 8:57. ? FINDINGS:? Image quality:? Excellent.? ? Lung bases:? Unremarkable.? Small hiatal hernia.? ? Heart:? No significant findings. ? ? ABDOMEN: Liver:? Enlarged measuring 22.1 cm in length.? There is [id number] hepatic steatosis.? ? Gallbladder:? Unremarkable.? ? Biliary ducts:? Unremarkable.? ? Pancreas:? Unremarkable.? ? Spleen:? Unremarkable.? ? Adrenal Glands:? Unremarkable.? ? Kidneys and Ureters:? Unremarkable.? ? ? Stomach and Bowel:? Stomach, small bowel loops, and colon are in caliber.? Mild colonic wall thickening involving the descending and sigmoid colon suggesting mild colitis.? Diverticulosis.? No CT findings to suggest acute diverticulitis. Peritoneum:? No abnormal intraperitoneal fluid.? No free air.? ? Ventral Wall: ? No hernia.? Abdominal Nodes:? No retroperitoneal or mesenteric adenopathy by size criteria.? Vessels:? Aorta and inferior vena cava are normal in size.? ? PELVIS: Pelvic Organs:? Unremarkable.? ? Bladder:? Unremarkable.? ? Pelvic Nodes: No enlarged lymph nodes.? Miscellaneous: No inguinal hernias are seen. ? ? ? Bones:? Unremarkable.? IMPRESSION:? ? 1.? Mild diffuse colonic wall thickening involving the descending and sigmoid colon suspicious for colitis.? Etiologies may be infection or inflammatory bowel disease. ? 2. Diverticulosis without diverticulitis. ? 3. Moderate hepatomegaly and hepatic steatosis. ? ? ? Dictated by: Zev Morgan M.D. on 07/31/2021 at 17:08 ? ? Approved by: Zev Morgan M.D. on 07/31/2021 at 17:18 ? MDM Narrative Medical decision making narrative: 55-year-old female with past medical history hypertension, IBS presents to the ED with abdominal pain, diarrhea. Concern for gastroenteritis versus C diff versus diverticulitis versus PUD versus gastritis versus GERD versus IBS. Will obtain labs, CT abdomen pelvis, UA. Will give morphine, GI cocktail, Pepcid AC for symptoms. Will reassess. Labs within normal limits, UA negative for UTI. CT abdomen pelvis shows Mild diffuse colonic wall thickening involving the descending and sigmoid colon suspicious for colitis.? Etiologies may be infection or inflammatory bowel disease. Patient's symptoms improved with GI cocktail, Pepcid AC, morphine. Patient was unable to provide a stool sample while in the ED. patient agrees to follow-up with her PCP for a stool test. Patient agrees to follow-up with her GI specialist. ED return precautions discussed with patient. Patient verbalizes understanding. <Jenifer Paz, - Last Filed: 08/02/21 07:54> Lab Data Labs: Lab Results 07/31/21 07/31/21 Range/Units 14:05 14:05 WBC 8.4 (4.5-11.0) X10^3/uL RBC 4.74 (4.0-5.2) X10^6/uL Hgb 13.8 (12.0-16.0) g/dL Hct 41.5 (36-46) % MCV 87.7 (80-100) fL MCH 29.2 (26-34) PG MCHC 33.3 (30-36) % RDW 13.9 (11.6-14.8) % Plt Count 227 (150-400) X10^3/uL Neut % (Auto) 63.6 (50-75) % Lymph % (Auto) 25.6 (25-40) % Dyer % (Auto) 7.6 (3-14) % Eos % (Auto) 2.8 (2-4) % Baso % (Auto) 0.4 (0-2) % Neut # (Auto) 5400 (4741-2275) /uL Lymph # (Auto) 2200 (6247-1658) /uL Dyer # (Auto) 600 (0-900) /uL Eos # (Auto) 200 (0-450) /uL Baso # (Auto) 0 (0-100) /uL Sodium 142 (137-145) mmol/L Potassium 4.1 (3.4-5.1) mmol/L Chloride 104 (98-107) mmol/L Carbon Dioxide 28 (22-32) mmol/L BUN 16 (7-17) mg/dL Creatinine 0.71 (0.52-1.04) mg/dL Estimated GFR > 60 (>60) mL/min BUN/Creatinine Ratio 22.5 H (6-22) Glucose 111 H (70-100) mg/dL Calcium 10.0 (8.4-10.2) mg/dL Total Bilirubin 0.4 (0.2-1.3) mg/dL AST 53 H (14-36) IU/L ALT 91 H (<35) IU/L Alkaline Phosphatase 115 (38-126) U/L Total Protein 9.2 H (6.3-8.2) g/dL Albumin 5.0 (3.5-5.0) g/dL Globulin 4.2 H (1.7-4.1) g/dL Albumin/Globulin Ratio 1.2 (1.0-2.8) Lipase 41 D (23-300) U/L Point of care testing: Point of Care Testing Test Results Negative Urine Dip Bedside Urine Glucose Negative Bedside Urine Bilirubin - Negative Bedside Urine Ketone - Negative Urine Specific [place] 1.015 Bedside Urine Occult Blood - Negative Bedside Urine pH 6 Bedside Urine Protein - Negative Bedside Urine Urobilinogen - Negative Bedside Urine Nitrite - Negative Bedside Urine Leukocytes - Negative Esterase ECG Data Interpretation: Brandi: Normal sinus rhythm rate 79 AK interval 140 QRS 94 QTC 463 T-wave inversion noted in V2 and be 3 with incomplete right bundle-branch block no prior EKGs to compare Discharge Plan Departure Patient Disposition: Home Clinical Impression: Abdominal pain Instructions: DI for Viral Gastroenteritis -- Adult, Gastroenteritis Diet, DI for Colitis Activity Restrictions/Additional Instructions: You were evaluated in the ED today for abdominal pain, diarrhea. Your labs and urinalysis were normal. Your CT abdomen pelvis shows possible colitis or inflammatory bowel disease. You were unable to leave us a stool sample today to check for bacteria. You may go to your PCPs office and have them order a stool study. Please follow-up with your GI specialist as soon as possible. Return to the ED if you are unable to keep down liquids, you have a fever, chills, worsening symptoms. Prescriptions: No Action lidocaine 5 % adhesive patch,medicated 1 patch topical DAILY PRN (Reason: pain ) Qty: 15 0RF Rx Instructions: leave on most painful area for up to 12 hrs hydrocodone-acetaminophen 5-325 mg tablet 1 tab PO Q6H PRN (Reason: pain) Qty: 14 0RF ondansetron 4 mg tablet,disintegrating 4 mg PO Q8H PRN (Reason: nausea and vomiting) Qty: 10 0RF Referrals: Miscellaneous,Doctor, [Primary Care Provider] - <Jenifer Paz, - Last Filed: 08/02/21 07:54> Cosign ED Attending Christinaature Attestation: I was immediately available in the department for consultation. Documentation has been reviewed. I agree with assessment and plan.
[2021-07-31] MEDS: MAG HYDROX/ALUMINUM/SIMETH SUS 20 ML, LIDOCAINE VISCOUS 2% 15 ML PO (16:31)
[2021-07-31] MEDS: FAMOTIDINE 20 MG/2 ML VIAL IV ×2 (16:32)
[2021-07-31] MEDS: MORPHINE 4 MG/ML INJ IV ×2 (16:33→18:22)
--- NOTE | 2021-07-31 16:37 | DI.CT.S_ITS ---
PROCEDURE: CT ABDOMEN PELVIS W CON INDICATIONS: LLQ, epigastric pain TECHNIQUE: After the administration of oral and IV contrast, axial sections were acquired from the lung bases to the pubic symphysis. Coronal and sagittal reformats were performed. For radiation dose reduction, the following was used: automated exposure control, adjustment of mA and/or kV according to patient size. COMPARISON: [facility], CT, CT ABDOMEN PELVIS W CON, 07/28/2021, 8:57. FINDINGS: Image quality: Excellent. Lung bases: Unremarkable. Small hiatal hernia. Heart: No significant findings. ABDOMEN: Liver: Enlarged measuring 22.1 cm in length. There is [id number] hepatic steatosis. Gallbladder: Unremarkable. Biliary ducts: Unremarkable. Pancreas: Unremarkable. Spleen: Unremarkable. Adrenal Glands: Unremarkable. Kidneys and Ureters: Unremarkable. Stomach and Bowel: Stomach, small bowel loops, and colon are in caliber. Mild colonic wall thickening involving the descending and sigmoid colon suggesting mild colitis. Diverticulosis. No CT findings to suggest acute diverticulitis. Peritoneum: No abnormal intraperitoneal fluid. No free air. Ventral Wall: No hernia. Abdominal Nodes: No retroperitoneal or mesenteric adenopathy by size criteria. Vessels: Aorta and inferior vena cava are normal in size. PELVIS: Pelvic Organs: Unremarkable. Bladder: Unremarkable. Pelvic Nodes: No enlarged lymph nodes. Miscellaneous: No inguinal hernias are seen. Bones: Unremarkable. IMPRESSION: 1. Mild diffuse colonic wall thickening involving the descending and sigmoid colon suspicious for colitis. Etiologies may be infection or inflammatory bowel disease. 2. Diverticulosis without diverticulitis. 3. Moderate hepatomegaly and hepatic steatosis. Dictated by: Zev Morgan M.D. on 07/31/2021 at 17:08 Approved by: Zev Morgan M.D. on 07/31/2021 at 17:18
== END 2021-07-31 18:45 | disposition home or self-care (01) ==
PROVIDERS: Emergency Medicine; Emergency Provider Student in an Organized Health Care Education/Training Program
DX: R10.13 Epigastric pain (principal); R10.32 Left lower quadrant pain
CPT/HCPCS: 36415; 74177; 80053; 81003; 81025; 83690; 85025; 93005; 93010; 96374; 96375; 96376; 99284; J2270

== ENCOUNTER → 2022-03-30 13:45 | Outpatient (CLI) | payer MEDICARE, SELFPAY | PROVIDERS: Visit Provider Student in an Organized Health Care Education/Training Program | DX: J02.9 Acute pharyngitis, unspecified (principal) | CPT/HCPCS: 87070 ==

== ENCOUNTER 2023-03-03 13:28 | Emergency (ER) | payer MEDICARE, SELFPAY ==
[2023-03-03] VITALS (92 sets, daily range): BP systolic 104–174; BP diastolic 53–95; PULSE 78–102; RESP 13–24; TEMP 36.4–36.5; O2SAT 93–100; BMI 30.2
--- NOTE | 2023-03-03 13:38 | DI.RAD.S_ITS ---
PROCEDURE: XR CHEST 1V INDICATIONS: chest pain TECHNIQUE: One view of the chest was acquired. COMPARISON: None. FINDINGS: Surgical changes and devices: None. Lungs and pleura: Lungs are clear. No pleural effusions or pneumothorax. Mediastinum: Mediastinal contours appear normal. Heart size is normal. Bones and chest wall: No suspicious bony lesions. Overlying soft tissues appear unremarkable. IMPRESSION: No acute cardiopulmonary abnormality is seen. Dictated by: Mansoor Yates M.D. on 03/03/2023 at 13:12 Approved by: Mansoor Yates M.D. on 03/03/2023 at 13:12
[2023-03-03] MEDS: ASPIRIN 81 MG CHEW TAB 324 MG PO (13:45)
[2023-03-03 13:56] LABS: Add Manual Diff / Slide Review NO; Basophils Absolute Auto 100 /uL (0-100); Basophils Percent Auto 0.7 % (0-2); Eosinophils Absolute Auto 100 /uL (0-450); Eosinophils Percent Auto 1.6 % (2-4); Hematocrit 41.5 % (36-46); Hemoglobin 13.8 g/dL (12.0-16.0); Lymphocytes Absolute Auto 2300 /uL (1100-4500); Lymphocytes Percent Auto 29.4 % (25-40); Mean Corpuscular HGB Conc 33.3 % (30-36); Mean Corpuscular Hemoglobin 28.1 PG (26-34); Mean Corpuscular Volume 84.4 fL (80-100); Monocytes Absolute Auto 400 /uL (0-900); Monocytes Percent Auto 4.7 % (3-14); Neutrophils Absolute Auto 4900 /uL (1500-7000); Neutrophils Percent Auto 63.6 % (50-75); Platelet Count 206 X10^3/uL (150-400); Red Blood Cell Count 4.92 X10^6/uL (4.0-5.2); Red Cell Distribution Width 13.2 % (11.6-14.8); White Blood Cell Count 7.7 X10^3/uL (4.5-11.0)
--- NOTE | 2023-03-03 14:01 | PC.NURSE ---
Pt presented to the emergency dept with spouse because she has been having cp since 0100 this morning. Pt states that her cp started in her left chest and radiated to her left shoulder, jaw and down her arm. Pt describes pain as 10/10 and it felt as thought someone was squeezing her heart and there was an elephant on her chest. Pt reports nausea and sob. a&ox4. cons intact. Hx of stroke with tpa.
[2023-03-03 14:02] LABS: INR 1.1 (0.9-1.3); Prothrombin Time 12.1 SECONDS (9.4-12.5)
[2023-03-03 14:04] LABS: PTT Partial Thromboplastin Tim 30 SECONDS (25.1-36.5)
[2023-03-03 14:06] LABS: Alanine Aminotransferase 51 IU/L (<35); Albumin 4.4 g/dL (3.5-5.0); Albumin Globulin Ratio 1.1 (1.0-2.8); Alkaline Phosphatase 102 U/L (38-126); Aspartate Aminotransferase 35 IU/L (14-36); BUN Creatinine Ratio 23.9 (6-22); Bilirubin Total 0.5 mg/dL (0.2-1.3); Blood Urea Nitrogen 17 mg/dL (7-17); Carbon Dioxide 27 mmol/L (22-32); Chloride 102 mmol/L (98-107); Creatine Kinase 96 U/L (30-135); Estimated Glomerular Filt Rate > 60 mL/min (>60); Globulin 3.9 g/dL (1.7-4.1); Glucose 141 mg/dL (70-100); HEMOLYSIS 21 (0-50); Lipase 145 U/L (23-300); Magnesium 1.9 mg/dL (1.6-2.3); Potassium 3.7 mmol/L (3.4-5.1); Sodium 139 mmol/L (137-145); Total Protein 8.3 g/dL (6.3-8.2)
--- NOTE | 2023-03-03 14:16 | ED.CHESTPAIN ---
HPI - Chest Pain <Bigg Spivey DO - Last Filed: 03/03/23 18:41> General Chief Complaint: Chest Pain Stated Complaint: CHEST PAIN Time Seen by Provider: 03/03/23 13:57 Source: patient and family Mode of arrival: Ambulatory Limitations: no limitations History of Present Illness HPI narrative: Patient is a 57-year-old female. Is here for evaluation of left-sided chest discomfort. Patient states she was woken from sleep at approximately 0200 hours in the morning with the chest discomfort. Lasted for approximately an hour and a half. She was able to go to sleep afterwards. When she woke up this morning at about 0800 hours she had the chest discomfort again. It has been consistent since that time but have had periods of time when his worse than others. Not particularly worse with palpation or movement or breathing. Has not had discomfort like this in the past. No abdominal pain nausea vomiting. No fevers. Related Data Previous Rx's Medication Instructions Recorded lidocaine 5 % topical patch 1 patch topical DAILY PRN pain 02/01/21 #15 ea hydrocodone 5 mg-acetaminophen 325 1 tab PO Q6H PRN pain #14 tabs 07/28/21 mg tablet ondansetron 4 mg disintegrating 4 mg PO Q8H PRN nausea and 07/28/21 tablet vomiting #10 tabs Allergies Allergy/AdvReac Type Severity Reaction Status Date / Time metaxalone [From Skelaxin] Allergy Severe Anaphylaxis Verified 03/03/23 13:32 Sulfa (Sulfonamide Allergy Severe Anaphylaxis Verified 03/03/23 13:32 Antibiotics) hydroxychloroquine Allergy Anaphylaxis Verified 03/03/23 13:32 tramadol Allergy Anaphylaxis Verified 03/03/23 13:32 benzonatate AdvReac Mild Verified 03/03/23 13:32 ssri Allergy Anaphylaxis Uncoded 07/31/21 16:26 Review of Systems <DO Mavis Herron Last Filed: 03/03/23 18:41> Constitutional Constitutional: Reports system reviewed and no additional complaints, except as documented Cardiovascular Cardiovascular: Reports system reviewed and no additional complaints, except as documented Respiratory Respiratory: Reports system reviewed and no additional complaints, except as documented Gastrointestinal Gastrointestinal: Reports system reviewed and no additional complaints, except as documented Integumentary/Breasts Skin/Breast: Reports system reviewed and no additional complaints, except as documented Hematologic/Lymphatic On Anticoagulants: No Patient History <DO Mavis Herron Last Filed: 03/03/23 18:41> Social History Smoking Status: Never smoker Smoking Status: Never smoker alcohol intake frequency: holidays/special occasions only Substance Use Type: prescription drug Exam <DO Mavis Herron Last Filed: 03/03/23 18:41> Initial Vital Signs Initial Vital Signs: Vital Signs Temperature 97.6 F 03/03/23 13:32 Pulse Rate 100 H 03/03/23 13:32 Respiratory Rate 18 03/03/23 13:32 Blood Pressure 159/78 H 03/03/23 13:32 Pulse Oximetry 100 03/03/23 13:32 Oxygen Delivery Method Room Air 03/03/23 13:32 Const General: cooperative, comfortable and No ill appearing HENMT Head: normal to inspection and normocephalic Chest Chest: No crepitus Resp Effort & Inspection: normal respiratory effort Auscultation: clear to auscultation bilaterally Cardio Rate: regular rate Rhythm: regular rhythm GI Inspection: normal to inspection and non-distended Skin General: no rashes or lesions noted Neuro General: patient alert, patient awake and moves all extremities Speech: speech normal Other: Cranial nerves intact except for subjective decreased sensation to light touch left side of her face compared to right. The decreased sensation to light touch extends down into her left arm to include her hand. It is circumferential. No sensory deficits noted on the lower extremities. Strength is 5/5 bilateral upper and lower extremities. Extrem General: No edema <DO Mavis Thompson Last Filed: 03/04/23 01:53> Initial Vital Signs Initial Vital Signs: Vital Signs Temperature 97.6 F 03/03/23 13:32 Pulse Rate 100 H 03/03/23 13:32 Respiratory Rate 18 03/03/23 13:32 Blood Pressure 159/78 H 03/03/23 13:32 Pulse Oximetry 100 03/03/23 13:32 Oxygen Delivery Method Room Air 03/03/23 13:32 Scores <DO Mavis Herron Last Filed: 03/03/23 18:41> GCS [place] coma scale eye opening: Spontaneous [place] coma scale verbal response: Orientated [place] coma scale motor response: Obey commands [place] coma scale total score: 15 HEART Score Heart Score history: Slightly Suspicious Heart Score EKG: Normal Heart Score Age: 45-64 years old Heart Score risk factors: 1-2 risk factors Heart Score troponin: < or = to normal limit Heart Score Total: 2 <Jenifer Paz DO - Last Filed: 03/04/23 01:53> GCS [place] coma scale total score: 15 HEART Score Heart Score Total: 2 NIH Stroke Scale Level of Conciousness: Alert, keenly responsive Ask month/age: Answers both questions correctly. Open/close eyes, close hand: Performs both tasks correctly Best gaze horizontal: Normal Visual staples: No visual loss Facial palsy: Normal symetrical movement Left arm drift: No drift for full 10 sec Right arm drift: No drift for full 10 sec Left leg drift: No drift for full 5 sec Right leg drift: No drift for full 5 sec Limb ataxia: Absent Sensory on face/arms/legs: Normal, no sensory loss Best language: No aphasia, normal Dysarthria: Normal Extinction or inattention: No abnormality Total NIH Stroke scale score: 0 Course <Bigg Spivey DO - Last Filed: 03/03/23 18:41> Orders Ordered: ED Orders 03/03/23 18:32 CT angio head and neck Stat CT head/brain wo con Stat 03/03/23 19:05 Troponin & CK Cardiac Panel Stat Discontinued Medications Hydrocodone Bitart/Acetaminophen (Hydrocodone/Acet 5/325 Tablet) 1 tab PO NOW ONE Stop: 03/03/23 16:27 Last Admin: 03/03/23 16:36 Dose: 1 tab Documented By: MPO Aspirin (Aspirin 81 Mg Chew Tab) 324 mg PO NOW ONE Stop: 03/03/23 13:39 Last Admin: 03/03/23 13:45 Dose: 324 mg Documented By: SPF Hydromorphone HCl (Hydromorphone 0.5 Mg Inj) 0.5 mg IV NOW ONE Stop: 03/03/23 14:50 Last Admin: 03/03/23 14:55 Dose: 0.5 mg Documented By: MPO Sodium Chloride (Normal Saline 0.9%) 1,000 mls @ 1,000 mls/hr IV BOLUS ONE Stop: 03/03/23 20:49 Last Infusion: 03/03/23 21:12 Dose: Infused Documented By: Admin: 03/03/23 20:01 Dose: 1,000 mls/hr Documented By: EMILY Acetaminophen (Ofirmev) 1,000 mg in 100 mls @ 400 mls/hr IV NOW ONE Stop: 03/03/23 20:04 Last Infusion: 03/03/23 20:16 Dose: Infused Documented By: Admin: 03/03/23 20:01 Dose: 400 mls/hr Documented By: EMILY Lorazepam (Lorazepam 2 Mg/Ml Inj) 1 mg IV NOW ONE Stop: 03/03/23 17:45 Last Admin: 03/03/23 17:47 Dose: 1 mg Documented By: IJEOMA Nitroglycerin (Nitroglycerin 0.4 Mg Sl Tab) 0.4 mg SL [id number] PRN PRN Reason: Chest Pain Last Admin: 03/03/23 14:34 Dose: 0.4 mg Documented By: JAMES Ondansetron HCl (Ondansetron 4 Mg/2 Ml Inj) 4 mg IV NOW ONE Stop: 03/03/23 14:54 Last Admin: 03/03/23 14:54 Dose: 4 mg Documented By: JAMES Ondansetron HCl (Ondansetron 4 Mg/2 Ml Inj) 4 mg IV NOW ONE Stop: 03/03/23 20:55 Last Admin: 03/03/23 21:08 Dose: 4 mg Documented By: EMILY Vital Signs Vital signs: Vital Signs - 8 hr 03/03/23 17:45 03/03/23 17:46 03/03/23 17:46 Temperature Pulse Rate 88 88 Respiratory Rate 20 20 Blood Pressure 129/79 Pulse Oximetry 97 98 03/03/23 17:50 03/03/23 17:50 03/03/23 17:55 Temperature Pulse Rate 87 Respiratory Rate 22 Blood Pressure 150/75 H 151/95 H Pulse Oximetry 99 03/03/23 17:55 03/03/23 18:00 03/03/23 18:00 Temperature Pulse Rate 89 87 Respiratory Rate 16 21 Blood Pressure 149/85 H Pulse Oximetry 98 99 03/03/23 18:05 03/03/23 18:05 03/03/23 18:10 Temperature Pulse Rate 89 Respiratory Rate 17 Blood Pressure 146/89 H 136/82 Pulse Oximetry 98 03/03/23 18:10 03/03/23 18:15 03/03/23 18:15 Temperature Pulse Rate 89 87 Respiratory Rate 18 17 Blood Pressure 138/84 Pulse Oximetry 97 97 03/03/23 18:20 03/03/23 18:20 03/03/23 18:25 Temperature Pulse Rate 89 Respiratory Rate 18 Blood Pressure 133/76 131/78 Pulse Oximetry 96 03/03/23 18:25 03/03/23 18:30 03/03/23 18:30 Temperature Pulse Rate 89 91 H Respiratory Rate 18 18 Blood Pressure 129/78 Pulse Oximetry 97 99 03/03/23 18:35 03/03/23 18:35 03/03/23 18:49 Temperature Pulse Rate 94 H 95 H Respiratory Rate 18 Blood Pressure 133/79 Pulse Oximetry 98 98 03/03/23 18:50 03/03/23 18:55 03/03/23 19:00 Temperature Pulse Rate 94 H 92 H 91 H Respiratory Rate 15 18 20 Blood Pressure Pulse Oximetry 98 97 96 03/03/23 19:05 03/03/23 19:10 03/03/23 19:15 Temperature Pulse Rate 91 H 97 H 89 Respiratory Rate 17 18 16 Blood Pressure Pulse Oximetry 96 97 94 03/03/23 19:18 03/03/23 19:18 03/03/23 19:20 Temperature Pulse Rate 90 87 Respiratory Rate 13 15 Blood Pressure 116/55 L Pulse Oximetry 98 95 03/03/23 19:20 03/03/23 19:25 03/03/23 19:25 Temperature Pulse Rate 87 Respiratory Rate 15 Blood Pressure 105/53 L 104/57 L Pulse Oximetry 97 03/03/23 19:30 03/03/23 19:30 03/03/23 19:35 Temperature Pulse Rate 86 Respiratory Rate 15 Blood Pressure 107/61 107/61 Pulse Oximetry 97 03/03/23 19:35 03/03/23 19:40 03/03/23 19:45 Temperature Pulse Rate 86 87 86 Respiratory Rate 19 21 15 Blood Pressure Pulse Oximetry 97 99 100 03/03/23 19:50 03/03/23 19:55 03/03/23 20:00 Temperature Pulse Rate 86 83 81 Respiratory Rate 15 18 18 Blood Pressure Pulse Oximetry 99 96 96 03/03/23 20:05 03/03/23 20:10 03/03/23 20:15 Temperature Pulse Rate 82 85 82 Respiratory Rate 18 21 19 Blood Pressure Pulse Oximetry 97 97 97 03/03/23 20:20 03/03/23 20:25 12/03/23 20:30 Temperature Pulse Rate 81 81 80 Respiratory Rate 20 19 19 Blood Pressure Pulse Oximetry 96 97 96 03/03/23 20:35 03/03/23 20:40 03/03/23 20:45 Temperature Pulse Rate 79 81 83 Respiratory Rate 19 24 22 Blood Pressure Pulse Oximetry 96 96 97 03/03/23 20:50 03/03/23 20:55 03/03/23 21:00 Temperature Pulse Rate 85 81 84 Respiratory Rate 19 16 21 Blood Pressure Pulse Oximetry 97 96 97 03/03/23 21:05 03/03/23 21:10 03/03/23 21:15 Temperature Pulse Rate 82 80 79 Respiratory Rate 19 15 19 Blood Pressure Pulse Oximetry 97 98 98 03/03/23 21:16 03/03/23 21:16 03/03/23 21:31 Temperature 97.7 F Pulse Rate 78 Respiratory Rate 13 Blood Pressure 145/73 H Pulse Oximetry 99 <Jenifer Paz, - Last Filed: 03/04/23 01:53> Orders Ordered: ED Orders 03/03/23 18:32 CT angio head and neck Stat CT head/brain wo con Stat 03/03/23 19:05 Troponin & CK Cardiac Panel Stat Discontinued Medications Hydrocodone Bitart/Acetaminophen (Hydrocodone/Acet 5/325 Tablet) 1 tab PO NOW ONE Stop: 03/03/23 16:27 Last Admin: 03/03/23 16:36 Dose: 1 tab Documented By: MPO Aspirin (Aspirin 81 Mg Chew Tab) 324 mg PO NOW ONE Stop: 03/03/23 13:39 Last Admin: 03/03/23 13:45 Dose: 324 mg Documented By: SPF Hydromorphone HCl (Hydromorphone 0.5 Mg Inj) 0.5 mg IV NOW ONE Stop: 03/03/23 14:50 Last Admin: 03/03/23 14:55 Dose: 0.5 mg Documented By: MPO Sodium Chloride (Normal Saline 0.9%) 1,000 mls @ 1,000 mls/hr IV BOLUS ONE Stop: 03/03/23 20:49 Last Infusion: 03/03/23 21:12 Dose: Infused Documented By: Admin: 03/03/23 20:01 Dose: 1,000 mls/hr Documented By: EMILY Acetaminophen (Ofirmev) 1,000 mg in 100 mls @ 400 mls/hr IV NOW ONE Stop: 03/03/23 20:04 Last Infusion: 03/03/23 20:16 Dose: Infused Documented By: Admin: 03/03/23 20:01 Dose: 400 mls/hr Documented By: EMILY Lorazepam (Lorazepam 2 Mg/Ml Inj) 1 mg IV NOW ONE Stop: 03/03/23 17:45 Last Admin: 03/03/23 17:47 Dose: 1 mg Documented By: IJEOMA Nitroglycerin (Nitroglycerin 0.4 Mg Sl Tab) 0.4 mg SL [id number] PRN PRN Reason: Chest Pain Last Admin: 03/03/23 14:34 Dose: 0.4 mg Documented By: JAMES Ondansetron HCl (Ondansetron 4 Mg/2 Ml Inj) 4 mg IV NOW ONE Stop: 03/03/23 14:54 Last Admin: 03/03/23 14:54 Dose: 4 mg Documented By: JAMES Ondansetron HCl (Ondansetron 4 Mg/2 Ml Inj) 4 mg IV NOW ONE Stop: 03/03/23 20:55 Last Admin: 03/03/23 21:08 Dose: 4 mg Documented By: EMILY Vital Signs Vital signs: Vital Signs - 8 hr 03/03/23 17:45 03/03/23 17:46 03/03/23 17:46 Temperature Pulse Rate 88 88 Respiratory Rate 20 20 Blood Pressure 129/79 Pulse Oximetry 97 98 03/03/23 17:50 03/03/23 17:50 03/03/23 17:55 Temperature Pulse Rate 87 Respiratory Rate 22 Blood Pressure 150/75 H 151/95 H Pulse Oximetry 99 03/03/23 17:55 03/03/23 18:00 03/03/23 18:00 Temperature Pulse Rate 89 87 Respiratory Rate 16 21 Blood Pressure 149/85 H Pulse Oximetry 98 99 03/03/23 18:05 03/03/23 18:05 03/03/23 18:10 Temperature Pulse Rate 89 Respiratory Rate 17 Blood Pressure 146/89 H 136/82 Pulse Oximetry 98 03/03/23 18:10 03/03/23 18:15 03/03/23 18:15 Temperature Pulse Rate 89 87 Respiratory Rate 18 17 Blood Pressure 138/84 Pulse Oximetry 97 97 03/03/23 18:20 03/03/23 18:20 03/03/23 18:25 Temperature Pulse Rate 89 Respiratory Rate 18 Blood Pressure 133/76 131/78 Pulse Oximetry 96 03/03/23 18:25 03/03/23 18:30 03/03/23 18:30 Temperature Pulse Rate 89 91 H Respiratory Rate 18 18 Blood Pressure 129/78 Pulse Oximetry 97 99 03/03/23 18:35 03/03/23 18:35 03/03/23 18:49 Temperature Pulse Rate 94 H 95 H Respiratory Rate 18 Blood Pressure 133/79 Pulse Oximetry 98 98 03/03/23 18:50 03/03/23 18:55 03/03/23 19:00 Temperature Pulse Rate 94 H 92 H 91 H Respiratory Rate 15 18 20 Blood Pressure Pulse Oximetry 98 97 96 03/03/23 19:05 03/03/23 19:10 03/03/23 19:15 Temperature Pulse Rate 91 H 97 H 89 Respiratory Rate 17 18 16 Blood Pressure Pulse Oximetry 96 97 94 03/03/23 19:18 03/03/23 19:18 03/03/23 19:20 Temperature Pulse Rate 90 87 Respiratory Rate 13 15 Blood Pressure 116/55 L Pulse Oximetry 98 95 03/03/23 19:20 03/03/23 19:25 03/03/23 19:25 Temperature Pulse Rate 87 Respiratory Rate 15 Blood Pressure 105/53 L 104/57 L Pulse Oximetry 97 03/03/23 19:30 03/03/23 19:30 03/03/23 19:35 Temperature Pulse Rate 86 Respiratory Rate 15 Blood Pressure 107/61 107/61 Pulse Oximetry 97 03/03/23 19:35 03/03/23 19:40 03/03/23 19:45 Temperature Pulse Rate 86 87 86 Respiratory Rate 19 21 15 Blood Pressure Pulse Oximetry 97 99 100 03/03/23 19:50 03/03/23 19:55 03/03/23 20:00 Temperature Pulse Rate 86 83 81 Respiratory Rate 15 18 18 Blood Pressure Pulse Oximetry 99 96 96 03/03/23 20:05 03/03/23 20:10 03/03/23 20:15 Temperature Pulse Rate 82 85 82 Respiratory Rate 18 21 19 Blood Pressure Pulse Oximetry 97 97 97 03/03/23 20:20 03/03/23 20:25 03/03/23 20:30 Temperature Pulse Rate 81 81 80 Respiratory Rate 20 19 19 Blood Pressure Pulse Oximetry 96 97 96 03/03/23 20:35 03/03/23 20:40 03/03/23 20:45 Temperature Pulse Rate 79 81 83 Respiratory Rate 19 24 22 Blood Pressure Pulse Oximetry 96 96 97 03/03/23 20:50 03/03/23 20:55 03/03/23 21:00 Temperature Pulse Rate 85 81 84 Respiratory Rate 19 16 21 Blood Pressure Pulse Oximetry 97 96 97 03/03/23 21:05 03/03/23 21:10 03/03/23 21:15 Temperature Pulse Rate 82 80 79 Respiratory Rate 19 15 19 Blood Pressure Pulse Oximetry 97 98 98 03/03/23 21:16 03/03/23 21:16 03/03/23 21:31 Temperature 97.7 F Pulse Rate 78 Respiratory Rate 13 Blood Pressure 145/73 H Pulse Oximetry 99 MDM - Chest Pain <Bigg Spivey DO - Last Filed: 03/03/23 18:41> Lab Data Attestation: I reviewed the patient's lab results. 03/03/23 13:46 03/03/23 13:46 Labs: Lab Results 03/03/23 03/03/23 03/03/23 Range/Units 13:46 15:45 19:05 WBC 7.7 (4.5-11.0) X10^3/uL RBC 4.92 (4.0-5.2) X10^6/uL Hgb 13.8 (12.0-16.0) g/dL Hct 41.5 (36-46) % MCV 84.4 (80-100) fL MCH 28.1 (26-34) PG MCHC 33.3 (30-36) % RDW 13.2 (11.6-14.8) % Plt Count 206 (150-400) X10^3/uL Neut % (Auto) 63.6 (50-75) % Lymph % (Auto) 29.4 (25-40) % [place] % (Auto) 4.7 (3-14) % Eos % (Auto) 1.6 L (2-4) % Baso % (Auto) 0.7 (0-2) % Neut # (Auto) 4900 (3307-3190) /uL Lymph # (Auto) 2300 (6378-9669) /uL [place] # (Auto) 400 (0-900) /uL Eos # (Auto) 100 (0-450) /uL Baso # (Auto) 100 (0-100) /uL PT 12.1 (9.4-12.5) SECONDS INR 1.1 (0.9-1.3) APTT 30 (25.1-36.5) SECONDS D-Dimer 405 (<500) ng/ml Sodium 139 (137-145) mmol/L Potassium 3.7 (3.4-5.1) mmol/L Chloride 102 (98-107) mmol/L Carbon Dioxide 27 (22-32) mmol/L BUN 17 (7-17) mg/dL Creatinine 0.71 (0.52-1.04) mg/dL Estimated GFR > 60 (>60) mL/min BUN/Creatinine Ratio 23.9 H (6-22) Glucose 141 H (70-100) mg/dL Calcium 10.0 (8.4-10.2) mg/dL Magnesium 1.9 (1.6-2.3) mg/dL Total Bilirubin 0.5 (0.2-1.3) mg/dL AST 35 (14-36) IU/L ALT 51 H (<35) IU/L Alkaline Phosphatase 102 (38-126) U/L Total Creatine Kinase 96 85 76 (30-135) U/L Troponin I < 0.012 < 0.012 < 0.012 (0.01-0.034) ng/mL Total Protein 8.3 H (6.3-8.2) g/dL Albumin 4.4 (3.5-5.0) g/dL Globulin 3.9 (1.7-4.1) g/dL Albumin/Globulin Ratio 1.1 (1.0-2.8) Lipase 145 (23-300) U/L Imaging Data Chest x-ray: Radiologist's Impression: PROCEDURE: XR CHEST 1V INDICATIONS: chest pain TECHNIQUE: One view of the chest was acquired. COMPARISON: None. FINDINGS: Surgical changes and devices: None. Lungs and pleura: Lungs are clear. No pleural effusions or pneumothorax. Mediastinum: Mediastinal contours appear normal. Heart size is normal. Bones and chest wall: No suspicious bony lesions. Overlying soft tissues appear unremarkable. IMPRESSION: No acute cardiopulmonary abnormality is seen. ECG Data Attestation: I personally reviewed and interpreted this ECG as follows: Interpretation: Sinus rhythm Ventricular rate 96 Normal axis Normal QRS Normal QTC No ST T wave changes MDM Narrative Medical decision making narrative: Initially patient arrived with left-sided chest discomfort that she states occasionally radiates down her left arm. She is had 2- troponins both greater than 6 hours of the onset of symptoms. Has a heart score of 2. An unremarkable EKG and unremarkable chest x-ray. She is had persistent symptoms except for a short period of improvement after Dilaudid. After multiple different variations of medications upon re-evaluation patient now has a left-sided headache and tingling to the left side of her face and down the left side of her arm. Upon further questioning she states this is similar to what she felt like when she had her stroke in May of this year. She is not on anticoagulation. Neurologic exam intact except for subjective changes to light touch to the left side of her face. Given her chest discomfort and her new headache and other neurologic symptoms a CT/CTA of head and neck was ordered. Care turned over to Dr. Paz to follow-up when scans and disposition. <Jenifer Paz, DO - Last Filed: 03/04/23 01:53> Lab Data Labs: Lab Results 03/03/23 03/03/23 03/03/23 Range/Units 13:46 15:45 19:05 WBC 7.7 (4.5-11.0) X10^3/uL RBC 4.92 (4.0-5.2) X10^6/uL Hgb 13.8 (12.0-16.0) g/dL Hct 41.5 (36-46) % MCV 84.4 (80-100) fL MCH 28.1 (26-34) PG MCHC 33.3 (30-36) % RDW 13.2 (11.6-14.8) % Plt Count 206 (150-400) X10^3/uL Neut % (Auto) 63.6 (50-75) % Lymph % (Auto) 29.4 (25-40) % [place] % (Auto) 4.7 (3-14) % Eos % (Auto) 1.6 L (2-4) % Baso % (Auto) 0.7 (0-2) % Neut # (Auto) 4900 (8331-5144) /uL Lymph # (Auto) 2300 (8818-4022) /uL [place] # (Auto) 400 (0-900) /uL Eos # (Auto) 100 (0-450) /uL Baso # (Auto) 100 (0-100) /uL PT 12.1 (9.4-12.5) SECONDS INR 1.1 (0.9-1.3) APTT 30 (25.1-36.5) SECONDS D-Dimer 405 (<500) ng/ml Sodium 139 (137-145) mmol/L Potassium 3.7 (3.4-5.1) mmol/L Chloride 102 (98-107) mmol/L Carbon Dioxide 27 (22-32) mmol/L BUN 17 (7-17) mg/dL Creatinine 0.71 (0.52-1.04) mg/dL Estimated GFR > 60 (>60) mL/min BUN/Creatinine Ratio 23.9 H (6-22) Glucose 141 H (70-100) mg/dL Calcium 10.0 (8.4-10.2) mg/dL Magnesium 1.9 (1.6-2.3) mg/dL Total Bilirubin 0.5 (0.2-1.3) mg/dL AST 35 (14-36) IU/L ALT 51 H (<35) IU/L Alkaline Phosphatase 102 (38-126) U/L Total Creatine Kinase 96 85 76 (30-135) U/L Troponin I < 0.012 < 0.012 < 0.012 (0.01-0.034) ng/mL Total Protein 8.3 H (6.3-8.2) g/dL Albumin 4.4 (3.5-5.0) g/dL Globulin 3.9 (1.7-4.1) g/dL Albumin/Globulin Ratio 1.1 (1.0-2.8) Lipase 145 (23-300) U/L [facility] Narrative Medical decision making narrative: Initially patient arrived with left-sided chest discomfort that she states occasionally radiates down her left arm. She is had 2- troponins both greater than 6 hours of the onset of symptoms. Has a heart score of 2. An unremarkable EKG and unremarkable chest x-ray. She is had persistent symptoms except for a short period of improvement after Dilaudid. After multiple different variations of medications upon re-evaluation patient now has a left-sided headache and tingling to the left side of her face and down the left side of her arm. Upon further questioning she states this is similar to what she felt like when she had her stroke in May of this year. She is not on anticoagulation. Neurologic exam intact except for subjective changes to light touch to the left side of her face. Given her chest discomfort and her new headache and other neurologic symptoms a CT/CTA of head and neck was ordered. Care turned over to Dr. Paz to follow-up when scans and disposition. Dr. Paz-patient signed out to me by Dr. Spivey I have seen evaluated patient myself. She reports that she woke up with chest pain radiating up into her jaw down into her abdomen and left arm severe pain for about 1 hour earlier this morning. She continues to have pressure in her chest she describes pain at 11. She was given Dilaudid Ativan and nitro. She is had 3- troponins no EKG changes. Upon further questioning she reports that she would a stress test less than [facility] in [place] in December and she reports it negative. While in the ED she developed a headache and left-sided facial numbness. CT head neck angio were ordered and is negative. Wondering if this is atypical migraine causing headache. NIH stroke scale of 1. Attempting to get records or stress test. She is not able to pull it up on her phone. I did receive records from May 15 where she had an echocardiogram however patient is quite convinced that at [facility] she had a stress test in December reports that it was negative. Her headache improved with numbness in her left cheek improve. She reports that when she had her stroke she had left facial numbness facial droop and left-sided weakness. She actually does have some left lower leg weakness but is able to do [id number] pretty good CT angio is negative. Headache improved with IV fluids IV Tylenol and Zofran overall feeling better she would like to go home. She is multiple appointments this week with Cardiology and Neurology. We are unable to do a stress test tomorrow it sounds as though she is already had 1 she sees a Cardiology this week her pain improved she is 3- troponins. I think her headache was and facial numbness is actually complicated migraine. All of her symptoms have completely resolved she looks well. We discussed how she has multiple risk factors she still at risk for recurrent stroke recurrent [place] and have symptoms worsen at any point in time she needs to return by ambulance to the ED for evaluation. Discharge Plan Departure Patient Disposition: Home Clinical Impression: Headache, Atypical chest pain Instructions: DI for Transient Ischemic Attack, DI for Atypical Chest Pain Activity Restrictions/Additional Instructions: *You have been diagnosed with atypical chest pain, headache *What to do: At this time you do have multiple risk factors have recurrent stroke mini stroke heart attack. However you have appointments with your ocular pathologist this week. If you should have any new or worsening symptoms including facial droop weakness difficulty speaking chest pain shortness of breath you must call 911 and return to ED immediately. Your workup today included multiple blood tests all negative troponins CT head and neck angio did not show any occlusion chest x-ray. Things are stable from an emergency standpoint. *Continue to take medications as directed *Follow up with your primary care provider in 2-3 days or call [phone] Follow-up with your providers this week as scheduled *Return to ER if you should have increasing chest pain pressure facial droop numbness weakness tingling difficulty speaking or any new, worsening or concerning symptoms Prescriptions: No Action lidocaine 5 % adhesive patch,medicated 1 patch topical DAILY PRN (Reason: pain ) Qty: 15 0RF Rx Instructions: leave on most painful area for up to 12 hrs hydrocodone-acetaminophen 5-325 mg tablet 1 tab PO Q6H PRN (Reason: pain) Qty: 14 0RF ondansetron 4 mg tablet,disintegrating 4 mg PO Q8H PRN (Reason: nausea and vomiting) Qty: 10 0RF Referrals: Miscellaneous,Doctor, MD [Primary Care Provider] - Stand Alone Forms: Patient Portal/API
[2023-03-03 14:18] LABS: Troponin I < 0.012 ng/mL (0.01-0.034)
[2023-03-03] MEDS: NITROGLYCERIN 0.4 MG SL TAB SL (14:34)
--- NOTE | 2023-03-03 14:45 | PC.NURSE ---
At 1432 Pt requested medication to alleviate cp. rates pain as 10/10 and describes pain as heavy pressure and generally not feeling well. Dr Spivey notified and placed order for SL nitro. pt did not experience relief after 5 mins and did not want to take another nitro. Pt stated that she is feeling very anxious at this time and she cannot tell if she is feeling this way due to anxiety or something else. Dr Spivey aware and will order a different medication for cp. pt a&ox4.
[2023-03-03] MEDS: ONDANSETRON 4 MG/2 ML INJ IV ×2 (14:54→21:08)
[2023-03-03] MEDS: HYDROMORPHONE 0.5 MG INJ IV (14:55)
[2023-03-03 15:15] LABS: D Dimer 405 ng/ml (<500)
[2023-03-03 16:04] LABS: Creatine Kinase 85 U/L (30-135)
[2023-03-03 16:17] LABS: Troponin I < 0.012 ng/mL (0.01-0.034)
[2023-03-03] MEDS: HYDROCODONE/ACET 5/325 TABLET 1 TAB PO (16:36)
[2023-03-03] MEDS: LORazepam 2 MG/ML INJ 1 MG IV (17:47)
--- NOTE | 2023-03-03 18:32 | DI.CT.S_ITS ---
PROCEDURE: CT ANGIO HEAD AND NECK INDICATIONS: hx of stroke with chest pain and facial tingling TECHNIQUE: After the administration of intravenous contrast, 1 mm thick sections acquired from the aortic arch through the [place] of [place]. 3-dimensional mfefyey-bawrryfot-wrhuhqozdp (MIP) and/or volume rendering reformats were acquired of the central intracranial vasculature and neck separately. For radiation dose reduction, the following was used: automated exposure control, adjustment of mA and/or kV according to patient size. COMPARISON: None. FINDINGS: Image quality: Diagnostic. BRAIN: CSF spaces: Ventricles are normal in size and shape. Basal cisterns are patent. No extra-axial fluid collections. Brain: No significant abnormality of the brain can be seen. Skull and face: Calvarium and facial bones appear intact, without suspicious lesions. Orbits appear normal. Sinuses: Sinuses and mastoids are clear. HEAD CT ANGIOGRAPHY: Anterior circulation: Intracranial internal carotid arteries are normal in size and flow. The flow within the paired anterior cerebral arteries is normal and symmetric. The flow within the middle cerebral arteries is normal and symmetric. The anterior communicating artery is seen. No aneurysms are seen. Posterior circulation: Visualized portions of the vertebral arteries demonstrate normal caliber, and join to form a normal appearing basilar artery. Flow within the posterior cerebral arteries is normal and symmetric. No aneurysms are seen. NECK CT ANGIOGRAPHY: Carotid system: The great vessels demonstrate a conventional anatomy as they arise from the aortic arch. The origins of the common carotid arteries appear patent. The common carotid arteries demonstrate normal caliber and courses. The bifurcation regions are both widely patent. The internal carotid arteries demonstrate normal calibers and courses. Posterior circulation: The origins of the vertebral arteries both appear widely patent. The more superior extracranial portions of both vertebral arteries also demonstrate normal courses and calibers. They join to form a normal appearing basilar artery. Soft tissues: Visualized neck soft tissues demonstrate no suspicious abnormalities. Bones: No suspicious bony lesions. Visualized cervical spine appears normally aligned. IMPRESSION: No large vessel occlusion. Any quantitative measurements of stenosis were performed using NASCET criteria. Dictated by: Mansoor Yates M.D. on 03/03/2023 at 17:59 Approved by: Mansoor Yates M.D. on 03/03/2023 at 18:01
--- NOTE | 2023-03-03 18:32 | DI.CT.S_ITS ---
PROCEDURE: CT HEAD/BRAIN WO CON INDICATIONS: History of stroke, left-sided facial tingling TECHNIQUE: Noncontrast 4.5 mm thick angled axial sections acquired from the foramen magnum to the vertex, with coronal and sagittal reformats. For radiation dose reduction, the following was used: automated exposure control, adjustment of mA and/or kV according to patient size. COMPARISON: None. FINDINGS: Image quality: Excellent. CSF spaces: Basal cisterns are patent. No extra-axial fluid collections. Ventricles are normal in size and shape. Brain: No midline shift. No intracranial masses or hemorrhage. [place]-white matter interface is normal. Skull and face: Calvarium and visualized facial bones are intact, without suspicious lesions. Sinuses: Visualized sinuses and mastoids are clear. IMPRESSION: No acute intracranial pathology. Dictated by: Mansoor Yates M.D. on 03/03/2023 at 17:58 Approved by: Mansoor Yates M.D. on 03/03/2023 at 17:59
[2023-03-03 19:20] LABS: Creatine Kinase 76 U/L (30-135)
[2023-03-03 19:33] LABS: Troponin I < 0.012 ng/mL (0.01-0.034)
[2023-03-03] MEDS: SODIUM CHLORIDE 0.9% 1,000 ML 1000 ML IV (20:01)
[2023-03-03] MEDS: ACETAMINOPHEN IV 1,000 MG/100 ML VIAL 400 MG IV (20:01)
== END 2023-03-03 21:32 | disposition home or self-care (01) ==
PROVIDERS: Emergency Medicine; Emergency Provider Emergency Medicine
DX: R07.89 Other chest pain (principal); R51.9 Headache, unspecified
CPT/HCPCS: 36415; 70450; 70496; 70498; 71045; 80053; 82550; 83690; 83735; 84484; 85025; 85379; 85610; 85730; 93005; 96374; 96375; 96376; 99284; J0131; J1170; J2060; J2405; Q9967

== ENCOUNTER 2023-03-04 14:27 | Emergency (ER) | payer MEDICARE, SELFPAY ==
[2023-03-04] VITALS (13 sets, daily range): BP systolic 134–166; BP diastolic 45–96; PULSE 86–101; RESP 18–20; TEMP 36.7; O2SAT 95–100; BMI 30.2
--- NOTE | 2023-03-04 14:32 | DI.RAD.S_ITS ---
PROCEDURE: XR CHEST 1V INDICATIONS: chest pain TECHNIQUE: One view of the chest was acquired. COMPARISON: [facility], CR, XR CHEST 1V, 03/03/2023, 13:50. FINDINGS: Surgical changes and devices: Cholecystectomy clips. Lungs and pleura: Lungs are clear. No pleural effusions or pneumothorax. Mediastinum: Mediastinal contours appear normal. Heart size is normal. Bones and chest wall: No suspicious bony lesions. Overlying soft tissues appear unremarkable. IMPRESSION: No acute cardiopulmonary abnormality is seen. Dictated by: Neetu Nash M.D. on 03/04/2023 at 15:19 Approved by: Neetu Nash M.D. on 03/04/2023 at 15:19
[2023-03-04] MEDS: ONDANSETRON 4 MG/2 ML INJ IV (14:47)
[2023-03-04 14:55] LABS: Add Manual Diff / Slide Review NO; Basophils Absolute Auto 100 /uL (0-100); Eosinophils Absolute Auto 100 /uL (0-450); Eosinophils Percent Auto 1.2 % (2-4); Hematocrit 40.8 % (36-46); Hemoglobin 13.9 g/dL (12.0-16.0); Lymphocytes Absolute Auto 2200 /uL (1100-4500); Lymphocytes Percent Auto 25.7 % (25-40); Mean Corpuscular HGB Conc 34.2 % (30-36); Mean Corpuscular Hemoglobin 28.6 PG (26-34); Mean Corpuscular Volume 83.7 fL (80-100); Monocytes Absolute Auto 500 /uL (0-900); Monocytes Percent Auto 6.3 % (3-14); Neutrophils Absolute Auto 5600 /uL (1500-7000); Neutrophils Percent Auto 65.8 % (50-75); Platelet Count 222 X10^3/uL (150-400); Red Blood Cell Count 4.88 X10^6/uL (4.0-5.2); Red Cell Distribution Width 13.2 % (11.6-14.8); White Blood Cell Count 8.5 X10^3/uL (4.5-11.0)
[2023-03-04 14:56] LABS: INR 1.1 (0.9-1.3); Prothrombin Time 12.3 SECONDS (9.4-12.5)
[2023-03-04 14:57] LABS: D Dimer 534 ng/ml (<500)
[2023-03-04 14:58] LABS: PTT Partial Thromboplastin Tim 28 SECONDS (25.1-36.5)
[2023-03-04 15:00] LABS: Alanine Aminotransferase 71 IU/L (<35); Albumin 4.4 g/dL (3.5-5.0); Albumin Globulin Ratio 1.1 (1.0-2.8); Alkaline Phosphatase 135 U/L (38-126); Aspartate Aminotransferase 61 IU/L (14-36); BUN Creatinine Ratio 17.5 (6-22); Bilirubin Total 0.5 mg/dL (0.2-1.3); Blood Urea Nitrogen 11 mg/dL (7-17); Calcium 10.2 mg/dL (8.4-10.2); Carbon Dioxide 24 mmol/L (22-32); Chloride 106 mmol/L (98-107); Creatine Kinase 70 U/L (30-135); Estimated Glomerular Filt Rate > 60 mL/min (>60); Globulin 3.9 g/dL (1.7-4.1); Glucose 97 mg/dL (70-100); HEMOLYSIS < 15 (0-50); Lipase 113 U/L (23-300); Potassium 4.2 mmol/L (3.4-5.1); Sodium 139 mmol/L (137-145); Total Protein 8.3 g/dL (6.3-8.2)
[2023-03-04 15:11] LABS: NT-proBNP (BNP-Adult 18+) 39 pg/mL (<125); Troponin I < 0.012 ng/mL (0.01-0.034)
[2023-03-04] MEDS: MORPHINE 4 MG/ML INJ IV (15:57)
[2023-03-04 17:18] LABS: Troponin I < 0.012 ng/mL (0.01-0.034)
--- NOTE | 2023-03-04 18:01 | DI.CT.S_ITS ---
PROCEDURE: CT ANGIO CHEST PE PROTOCOL INDICATIONS: on going chest pain TECHNIQUE: After the administration of intravenous contrast, 2 mm thick sections acquired from the pulmonary apices to the posterior costophrenic angles. 3-dimensional maximum intensity projection (MIP) coronal and sagittal reformats were then acquired through the thorax. For radiation dose reduction, the following was used: automated exposure control, adjustment of mA and/or kV according to patient size. COMPARISON: None. FINDINGS: Image quality: Diagnostic. Pulmonary arteries: Pulmonary arteries are normal in size, and demonstrate no intraluminal filling defects to suggest central pulmonary embolism. Lungs and pleura: Dependent atelectasis in posterior and lateral periphery of bilateral lower lung staples are seen. No acute airspace opacities. No pleural effusions or pneumothorax. Central and peripheral airways are patent. Mediastinum: Heart size is borderline enlarged, without pericardial effusion. No mediastinal or hilar adenopathy. Thoracic aorta is normal in caliber and enhancement. Esophagus is normal in caliber, without hiatal hernia. Bones and chest wall: No suspicious bony lesions. Ribs and thoracic spine appear intact throughout. No axillary or supraclavicular adenopathy. Visualized portion of thyroid gland shows no gross abnormality. Upper Abdomen: Visualized upper abdominal solid organs appear normal in the early arterial phase of enhancement. IMPRESSION: 1. No pulmonary emboli. 2. No thoracic aortic aneurysm or gross dissection. 3. Mild cardiomegaly, no pericardial effusion. No mediastinal or hilar lymphadenopathy. 4. Dependent atelectasis in posterior aspect of bilateral lower lobes. No focal infiltrate, pleural effusion or pneumothorax. Dictated by: Barrera Lundberg M.D. on 03/04/2023 at 18:52 Approved by: Barrera Lundberg M.D. on 03/04/2023 at 18:54
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
[2023-03-04] MEDS: AMLODIPINE 5 MG TABLET PO (20:19)
[2023-03-04] MEDS: LORazepam 2 MG/ML INJ 0.5 MG IV (20:19)
== END 2023-03-04 20:33 | disposition home or self-care (01) ==
PROVIDERS: Emergency Medicine; Emergency Provider Emergency Medicine
DX: R07.89 Other chest pain (principal); R03.0 Elevated blood-pressure reading, without diagnosis of hypertension
CPT/HCPCS: 71045; 71275; 80053; 82550; 83690; 83880; 84484; 85025; 85379; 85610; 85730; 93005; 96374; 96375; 99284; 99285; J2060; J2270; J2405; Q9967

== ENCOUNTER 2023-04-05 12:26 | Emergency (ER) | payer MEDICARE, SELFPAY ==
[2023-04-05] VITALS (11 sets, daily range): BP systolic 124–177; BP diastolic 60–91; PULSE 95–113; RESP 15–21; TEMP 37.7; O2SAT 97–100; BMI 30.4
[2023-04-05 13:19] LABS: Eosinophils Absolute Auto 0 /uL (0-450); Eosinophils Percent Auto 0.2 % (2-4); Hematocrit 39.6 % (36-46); Mean Corpuscular Hemoglobin 28.1 PG (26-34)
[2023-04-05 13:24] LABS: Blood Urea Nitrogen 17 mg/dL (7-17); Calcium 9.8 mg/dL (8.4-10.2); Carbon Dioxide 26 mmol/L (22-32); Chloride 102 mmol/L (98-107); Estimated Glomerular Filt Rate > 60 mL/min (>60); Glucose 178 mg/dL (70-100); Sodium 136 mmol/L (137-145)
[2023-04-05 13:26] LABS: Basophils Absolute Auto 100 /uL (0-100); Basophils Percent Auto 0.6 % (0-2); Hemoglobin 13.1 g/dL (12.0-16.0); Lymphocytes Absolute Auto 2500 /uL (1100-4500); Lymphocytes Percent Auto 12.3 % (25-40); Mean Corpuscular HGB Conc 33.2 % (30-36); Mean Corpuscular Volume 84.7 fL (80-100); Monocytes Absolute Auto 1000 /uL (0-900); Neutrophils Absolute Auto 16700 /uL (1500-7000); Neutrophils Percent Auto 81.9 % (50-75); Red Blood Cell Count 4.67 X10^6/uL (4.0-5.2); Red Cell Distribution Width 13.4 % (11.6-14.8); White Blood Cell Count 20.4 X10^3/uL (4.5-11.0)
[2023-04-05] MEDS: methylPREDNISolone 125 MG/2 ML VIAL IV (13:26)
[2023-04-05 13:27] LABS: Add Manual Diff / Slide Review SLIDE REVIEW
[2023-04-05 13:29] LABS: HEMOLYSIS 62 (0-50)
[2023-04-05] MEDS: SODIUM CHLORIDE 0.9% 1,000 ML 1000 ML IV (13:29)
--- NOTE | 2023-04-05 13:33 | ED.ALLEREA ---
HPI - Allergic Reaction General Chief complaint: Allergic Reaction Stated complaint: Allergic reaction to medication Time Seen by Provider: 04/05/23 13:00 Source: patient Mode of arrival: Ambulatory History of Present Illness HPI narrative: Patient is a 57-year-old female. Several days ago she started to have a sore throat. Had a telemedicine visit and was told that she had strep throat. She was started on azithromycin. She is 1 day left this medication. She states yesterday things seemed to get somewhat worse. She went to the walk-in clinic. They gave her a dose of oral Decadron. Discharged home since that time she still thinks things are getting worse. She thought maybe he was having an allergic reaction to medicine. Seven some nausea. Some flushing in her upper chest. No problems breathing. No problems swallowing. Still having quite a bit of a sore throat. She has also been using over the counter Robitussin DM. Related Data Previous Rx's Medication Instructions Recorded lidocaine 5 % topical patch 1 patch topical DAILY PRN pain 02/01/21 #15 ea hydrocodone 5 mg-acetaminophen 325 1 tab PO Q6H PRN pain #14 tabs 07/28/21 mg tablet ondansetron 4 mg disintegrating 4 mg PO Q8H PRN nausea and 07/28/21 tablet vomiting #10 tabs amlodipine 5 mg tablet 5 mg PO DAILY #30 tabs 03/04/23 Allergies Allergy/AdvReac Type Severity Reaction Status Date / Time metaxalone [From Skelaxin] Allergy Severe Anaphylaxis Verified 04/05/23 12:30 Sulfa (Sulfonamide Allergy Severe Anaphylaxis Verified 04/05/23 12:30 Antibiotics) hydroxychloroquine Allergy Anaphylaxis Verified 04/05/23 12:30 tramadol Allergy Anaphylaxis Verified 04/05/23 12:30 benzonatate AdvReac Mild Verified 04/05/23 12:30 ssri Allergy Anaphylaxis Uncoded 07/31/21 16:26 Review of Systems Review of Systems ROS Unobtainable: All systems reviewed & are unremarkable except as noted in HPI and below Patient History Social History Smoking Status: Never smoker Smoking Status: Never smoker alcohol intake frequency: holidays/special occasions only Substance Use Type: does not use Exam Initial Vital Signs Initial Vital Signs: Vital Signs Temperature 99.9 F H 04/05/23 12:30 Pulse Rate 103 H 04/05/23 12:30 Respiratory Rate 15 04/05/23 12:30 Blood Pressure 160/91 H 04/05/23 12:30 Pulse Oximetry 98 04/05/23 12:30 Oxygen Delivery Method Room Air 04/05/23 12:30 Const General: cooperative and No ill appearing HENMT Mouth: lip normal, tongue normal and moist mucous membranes Throat: uvula midline and other (Posterior exudates) Resp Effort & Inspection: normal respiratory effort Auscultation: clear to auscultation bilaterally Cardio Rate: regular rate Rhythm: regular rhythm GI Inspection: normal to inspection and non-distended Skin Other: Flushing to the upper chest. No urticaria. No pustules. Neuro General: patient alert, patient awake and moves all extremities Course Orders Ordered: ED Orders 04/05/23 13:00 Basic Metabolic Panel Stat Complete Blood Count AUTO DIFF Stat Monotest Stat 04/05/23 13:33 Covid-19 + FLU A/B + RSV - PCR Stat Throat Culture Stat 04/05/23 14:41 Strep Grp A by PCR Rapid Stat Lorazepam (Lorazepam 0.5 Mg/0.25 Ml Syringe) 0.5 mg IV NOW ONE Stop: 04/05/23 15:24 Discontinued Medications Acetaminophen (Acetaminophen 325 Mg Tablet) 650 mg PO NOW ONE Stop: 04/05/23 13:30 Last Admin: 04/05/23 13:45 Dose: 650 mg Documented By: MANSI Sodium Chloride (Normal Saline 0.9%) 1,000 mls @ 1,000 mls/hr IV BOLUS ONE Stop: 04/05/23 14:08 Last Infusion: 04/05/23 14:42 Dose: Infused Documented By: Admin: 04/05/23 13:29 Dose: 1,000 mls/hr Documented By: MANSI Lorazepam (Lorazepam 2 Mg/Ml Inj) 0.5 mg IV NOW ONE Stop: 04/05/23 14:18 Last Admin: 04/05/23 14:22 Dose: 0.5 mg Documented By: MANSI Methylprednisolone (Methylprednisolone 125 Mg/2 Ml Vial) 125 mg IV NOW ONE Stop: 04/05/23 13:10 Last Admin: 04/05/23 13:26 Dose: 125 mg Documented By: MANSI Vital Signs Vital signs: Vital Signs - 8 hr 04/05/23 12:30 04/05/23 12:45 04/05/23 12:45 Temperature 99.9 F H Pulse Rate 103 H 113 H Respiratory Rate 15 Blood Pressure 160/91 H 158/79 H Pulse Oximetry 98 97 Oxygen Delivery Method Room Air 04/05/23 13:00 04/05/23 13:00 04/05/23 13:30 Temperature Pulse Rate 100 H 99 H Respiratory Rate 17 16 Blood Pressure 145/80 H Pulse Oximetry 99 99 Oxygen Delivery Method 04/05/23 13:32 04/05/23 13:32 Temperature Pulse Rate 100 H Respiratory Rate 17 Blood Pressure 135/67 Pulse Oximetry 99 Oxygen Delivery Method MDM - Allergic Reaction Lab Data 04/05/23 13:00 04/05/23 13:00 Labs: Lab Results 04/05/23 04/05/23 04/05/23 Range/Units 13:00 13:33 14:41 WBC 20.4 H (4.5-11.0) X10^3/uL RBC 4.67 (4.0-5.2) X10^6/uL Hgb 13.1 (12.0-16.0) g/dL Hct 39.6 (36-46) % MCV 84.7 (80-100) fL MCH 28.1 (26-34) PG MCHC 33.2 (30-36) % RDW 13.4 (11.6-14.8) % Plt Count 236 (150-400) X10^3/uL Neut % (Auto) 81.9 H (50-75) % Lymph % (Auto) 12.3 L (25-40) % [place] % (Auto) 5.0 (3-14) % Eos % (Auto) 0.2 L (2-4) % Baso % (Auto) 0.6 (0-2) % Neut # (Auto) 72304 H (2256-3182) /uL Lymph # (Auto) 2500 (6990-7134) /uL [place] # (Auto) 1000 H (0-900) /uL Eos # (Auto) 0 (0-450) /uL Baso # (Auto) 100 (0-100) /uL RBC Morphology Normal morphology Sodium 136 L (137-145) mmol/L Potassium 4.0 (3.4-5.1) mmol/L Chloride 102 (98-107) mmol/L Carbon Dioxide 26 (22-32) mmol/L BUN 17 (7-17) mg/dL Creatinine 0.68 (0.52-1.04) mg/dL Estimated GFR > 60 (>60) mL/min BUN/Creatinine Ratio 25.0 H (6-22) Glucose 178 H (70-100) mg/dL Calcium 9.8 (8.4-10.2) mg/dL SARS-CoV-2 (PCR) Negative (Negative) Monoscreen Negative (Negative) Influenza A (RT-PCR) Flu a negative (NEGATIVE) Influenza B (RT-PCR) Flu b negative (NEGATIVE) RSV (PCR) Negative (Negative) Group A Strep (PCR) Negative (Negative) MDM Narrative Medical decision making narrative: Patient's rapid strep was negative today. [place] was negative. Does have leukocytosis but has been treated for a strep throat and did receive steroids yesterday. I am not convinced that she has having a allergic reaction. No problems breathing. No problems swallowing. She is feeling very anxious and also having a headache. Had a long discussion with her regarding the symptoms. She only has 1 more day of antibiotics left and since there is some question that maybe this is causing her issues will just have her stop the antibiotics. We also discussed the possibility that is the steroids she received yesterday and again today that could potentially be causing some of this anxiety. Unfortunately we are just going to have to wait for these to exit her system in order for her to get better. She can take Tylenol for her headaches. Will discharge patient home with return precautions. Discharge Plan Departure Patient Disposition: Home Clinical Impression: Pharyngitis Instructions: Sore Throat Activity Restrictions/Additional Instructions: Like we discussed I recommend that you just go ahead and stop the antibiotics. I also recommend that you stop the [id number] cough and cold preparations and just focus on the symptoms that you were having such as treating your sore throat or treating a cough rather than using the combination medicines. You can take Tylenol for any headaches. Return to the emergency department for new symptoms. Prescriptions: No Action lidocaine 5 % adhesive patch,medicated 1 patch topical DAILY PRN (Reason: pain ) Qty: 15 0RF Rx Instructions: leave on most painful area for up to 12 hrs hydrocodone-acetaminophen 5-325 mg tablet 1 tab PO Q6H PRN (Reason: pain) Qty: 14 0RF ondansetron 4 mg tablet,disintegrating 4 mg PO Q8H PRN (Reason: nausea and vomiting) Qty: 10 0RF amlodipine 5 mg tablet 5 mg PO DAILY Qty: 30 0RF Referrals: Enrike Carvajal PA-C [Primary Care Provider] - Stand Alone Forms: Patient Portal/API
[2023-04-05 13:38] LABS: Platelet Count 236 X10^3/uL (150-400)
[2023-04-05 13:39] LABS: RBC Morphology Normal Morphology
[2023-04-05 13:45] LABS: Monotest Negative (Negative)
[2023-04-05] MEDS: ACETAMINOPHEN 325 MG TABLET 650 MG PO (13:45)
[2023-04-05] MEDS: LORazepam 2 MG/ML INJ 0.5 MG IV ×2 (14:22→15:33)
[2023-04-05 14:26] LABS: Influenza A - CEPHEID Flu A NEGATIVE (NEGATIVE); Influenza B - CEPHEID Flu B NEGATIVE (NEGATIVE); Respiratory Syncytial Virus Negative (Negative)
[2023-04-05 14:28] LABS: COVID-19 CEPHEID 4-PLEX PCR Negative (Negative)
[2023-04-05 14:53] LABS: Strep Grp A by PCR Rapid Negative (Negative)
== END 2023-04-05 15:49 | disposition home or self-care (01) ==
PROVIDERS: Emergency Provider Emergency Medicine; PCP Student in an Organized Health Care Education/Training Program
DX: J02.9 Acute pharyngitis, unspecified (principal); R23.2 Flushing
CPT/HCPCS: 0241U; 80048; 85025; 86318; 87070; 87651; 96374; 96375; 96376; 99284; J2060; J2930

== ENCOUNTER 2023-06-02 11:57 | Emergency (ER) | payer OTHER, SELFPAY ==
[2023-06-02] VITALS (10 sets, daily range): BP systolic 145–160; BP diastolic 70–98; PULSE 93–106; RESP 13–22; TEMP 36.5; O2SAT 96–100; BMI 31.2
[2023-06-02] MEDS: ONDANSETRON 4 MG/2 ML INJ IV (12:26)
--- NOTE | 2023-06-02 12:28 | ED_ITS ---
HPI - General Adult General Chief complaint: Abdominal Pain Stated complaint: ABD pain through back pain, Vomiting Time Seen by Provider: 06/02/23 12:19 Source: patient Mode of arrival: Ambulatory History of Present Illness HPI narrative: 57-year-old female with history of stroke with residual left-sided weakness presents with abdominal pain. History clarify from triage. Patient states in the last few days, she is developed epigastric burning pain that is not radiating, associated with nausea and vomiting. She noted a small possible streak of red blood in her vomit after vomiting several times. She denies fevers or chills. No chest pain. No back pain. No flank pain. No lower abdominal pain. No dysuria, hematuria, urinary frequency. She has had cholecystectomy. She denies alcohol use or substantial NSAID use or smoking. No similar symptoms in the past. She does not take antacid medications. No blood thinners. She takes hydrocodone chronically for back pain but was not able to due to nausea last night. No new back pain however. No leg swelling or leg pain. No focal numbness or weakness or visual or hearing changes. No head or neck pain. No other new concerns. Related Data Previous Rx's Medication Instructions Recorded lidocaine 5 % topical patch 1 patch topical DAILY PRN pain 02/01/21 #15 ea hydrocodone 5 mg-acetaminophen 325 1 tab PO Q6H PRN pain #14 tabs 07/28/21 mg tablet ondansetron 4 mg disintegrating 4 mg PO Q8H PRN nausea and 07/28/21 tablet vomiting #10 tabs amlodipine 5 mg tablet 5 mg PO DAILY #30 tabs 03/04/23 dicyclomine 10 mg capsule 10 mg PO QID PRN abdominal pain 06/02/23 #14 caps ondansetron 4 mg disintegrating 4 mg PO Q8H PRN nausea and 06/02/23 tablet vomiting #10 tabs Allergies Allergy/AdvReac Type Severity Reaction Status Date / Time hydroxychloroquine Allergy Severe Anaphylaxis Verified 06/02/23 12:14 metaxalone [From Skelaxin] Allergy Severe Anaphylaxis Verified 04/05/23 12:30 sertraline Allergy Severe Anaphylaxis Verified 06/02/23 12:14 Sulfa (Sulfonamide Allergy Severe Anaphylaxis Verified 04/05/23 12:30 Antibiotics) tramadol Allergy Severe Anaphylaxis Verified 06/02/23 12:14 promethazine [From Phenergan] Allergy Verified 06/02/23 12:04 benzonatate AdvReac Mild Verified 04/05/23 12:30 Review of Systems Review of Systems Narrative: Constitutional: no fever, no chills Eyes: no visual disturbance, no discharge Ears, Nose, Mouth, Throat: no rhinorrhea, no sore throat Cardiovascular: no chest pain, no palpitations Respiratory: no cough, no shortness of breath Gastrointestinal: + abdominal pain, + vomiting, no diarrhea Genitourinary: no dysuria, no hematuria Musculoskeletal: no back pain, no neck stiffness Skin: no rash, no wound Neurological: no focal weakness, no focal numbness Patient History Social History Smoking Status: Former smoker Smoking Status: Former smoker alcohol intake frequency: holidays/special occasions only Substance Use Type: does not use Exam Narrative Exam Narrative: Const: no acute distress, non toxic appearing; anxious, remains conversant, pleasant Eyes: PERRLA, EOMI ENT: mucous membranes moist Neck: supple, non-tender Resp: no respiratory distress, clear to auscultation bilaterally Card: regular rate and rhythm, no murmurs Abd: Mild epigastric tenderness, no other abdominal tenderness, negative Rasheed's sign, no rigidity or rebound or guarding Back: no T or L spine tenderness, no CVA tenderness bilaterally Extrem: no deformities, no swelling bilateral lower extremities, 2+ distal pulses all extremities Neuro: ANOx4, spot welder line 2-12 baseline, baseline sensation and strength all extremities Skin: no rash, warm and dry Initial Vital Signs Initial Vital Signs: Vital Signs Temperature 97.7 F 06/02/23 12:04 Pulse Rate 106 H 06/02/23 12:04 Respiratory Rate 18 06/02/23 12:04 Blood Pressure 148/98 H 06/02/23 12:04 Pulse Oximetry 99 06/02/23 12:04 Oxygen Delivery Method Room Air 06/02/23 12:04 Course Course Course Narrative: This presentation is most suggestive of gastritis, peptic ulcer disease, though I have considered a broad differential including but not limited to pancreatitis, hepatitis, pneumonia, ACS, bowel obstruction, pyelonephritis, among others. Note regarding possible blood involvement, this would be suggestive of Lachelle-Mendoza tear; I considered Boeerhave's, however patient is afebrile, without sudden or severe pain, with history and exam arguing against this currently. NO evidence of acute stroke or focal neurovascular deficits. I am obtaining EKG, CBC, CMP, lipase, troponin, chest x-ray, urine dip. I am giving fluids, pantoprazole, Zofran, GI cocktail trial and will closely reassess. EKG NSR without acute ischemia or immediately concerning interval prolongation on my review. Note morphology overall similar to March 04, 2023 EKG. Labs: CBC reassuring. Chemistry reassuring, creatinine within normal limits, mild ALT elevation with no alk-phos or AST or bilirubin elevation, with prior cholecystectomy. Lipase reassuring. Troponin reassuring. Urine dip without blood, protein, or clear evidence of infection, reassuring. Radiology review of CXR below, which I agree with on my independent review: FINDINGS: Surgical changes and devices: None. Lungs and pleura: Lungs are clear. No pleural effusions or pneumothorax. Mediastinum: Mediastinal contours appear normal. Heart size is normal. Bones and chest wall: No suspicious bony lesions. Overlying soft tissues appear unremarkable. IMPRESSION: No acute cardiopulmonary abnormality is seen. Approved by: Ayan Martin M.D. on 06/02/2023 at 14:32 Patient having improving symptoms here but still is nauseous, stating she vomited after Zofran. This did not appear bloody. She does clarify she is already on famotidine at home. I continue to suspect gastric source such as peptic ulcer disease, with hiatal hernia or gastritis possible. Gastroparesis is also possible. She has allergies to multiple antiemetics including Reglan but is willing to try Haldol here. We are going to trial this. Spouse at bedside in agreement. In addition, note patient is on Ozempic, which can cause similar symptoms; I recommended cessation of this. Her last dose was reportedly 3 days ago. Patient feeling improved now, tolerating p.o.. She feels Haldol made her restless so does not want a prescription for this, but we will prescribe Zofran, Bentyl, and she is already on famotidine. No current evidence of Boerhaave; mild Lachelle-Mendoza tear is possible, with no current bleeding noted here. She is hemodynamically stable, afebrile, and comfortable appearing. We discussed the strict importance of close follow up and return precautions, and that if she does not improve, repeat endoscopy may be warranted outpatient. Spouse corroborates as well that she had an endoscopy in the last few years that was reportedly reassuring. No chest pain here. No other new symptoms. She appears clinically stable with benign abdomen currently. I reinforced again trial of stopping Ozempic. Blood pressure is elevated here, however without clinical evidence of hypertensive emergency. Discussed with patient for follow-up. Repeat exam and vital signs reassuring. Questions answered. Plan reviewed. Patient discharged in stable condition. Orders Ordered: ED Orders 06/02/23 12:09 EKG-12 Lead Stat 06/02/23 12:30 XR chest 1V Stat 06/02/23 12:35 Complete Blood Count AUTO DIFF Stat Comprehensive Metabolic Panel Stat Lipase Stat Troponin I Stat Discontinued Medications Al Hydrox/Mg Hydrox/Simethicone 20 ml/ Lidocaine HCl 15 ml 0 ml PO NOW ONE Stop: 06/02/23 12:28 Last Admin: 06/02/23 12:41 Dose: 45 ml Documented By: GURPREET Haloperidol (Haloperidol 5 Mg/Ml Vial) 2 mg IV NOW ONE Stop: 06/02/23 13:48 Last Admin: 06/02/23 13:54 Dose: 2 mg Documented By: GURPREET Sodium Chloride (Normal Saline 0.9%) 1,000 mls @ 1,000 mls/hr IV BOLUS ONE Stop: 06/02/23 13:26 Last Infusion: 06/02/23 13:17 Dose: Infused Documented By: Admin: 06/02/23 12:32 Dose: 1,000 mls/hr Documented By: GURPREET Morphine Sulfate (Morphine Ir 15 Mg Tablet) 7.5 mg PO NOW ONE Stop: 06/02/23 13:16 Last Admin: 06/02/23 13:14 Dose: 7.5 mg Documented By: GURPREET Ondansetron HCl (Ondansetron 4 Mg/2 Ml Inj) 4 mg IV NOW PRN PRN Reason: Nausea And Vomiting Last Admin: 06/02/23 12:26 Dose: 4 mg Documented By: GURPREET Ondansetron HCl (Ondansetron 4 Mg Odt) 4 mg PO NOW PRN PRN Reason: Nausea And Vomiting Pantoprazole Sodium (Pantoprazole 40 Mg Vial) 40 mg IV NOW ONE Stop: 06/02/23 12:28 Last Admin: 06/02/23 12:32 Dose: 40 mg Documented By: GURPREET Vital Signs Vital signs: Vital Signs - 8 hr 06/02/23 12:04 06/02/23 12:13 06/02/23 12:14 Temperature 97.7 F Pulse Rate 106 H 104 H Respiratory Rate 18 22 Blood Pressure 148/98 H 150/90 H Pulse Oximetry 99 Oxygen Delivery Method Room Air 06/02/23 12:14 06/02/23 12:30 06/02/23 12:30 Temperature Pulse Rate 103 H 102 H Respiratory Rate 14 22 Blood Pressure 145/97 H Pulse Oximetry 96 99 Oxygen Delivery Method 06/02/23 13:00 06/02/23 13:00 06/02/23 13:30 Temperature Pulse Rate 96 H 95 H Respiratory Rate 16 15 Blood Pressure 158/88 H Pulse Oximetry 99 100 Oxygen Delivery Method 06/02/23 14:00 06/02/23 14:11 06/02/23 14:11 Temperature Pulse Rate 101 H 95 H Respiratory Rate 16 22 Blood Pressure 160/97 H Pulse Oximetry 100 99 Oxygen Delivery Method 06/02/23 14:30 06/02/23 14:30 06/02/23 14:58 Temperature Pulse Rate 93 H 95 H Respiratory Rate 13 Blood Pressure 150/88 H 146/70 H Pulse Oximetry 96 98 Oxygen Delivery Method Medical Decision Making Lab Data 06/02/23 12:35 06/02/23 12:35 Labs: Lab Results 06/02/23 Range/Units 12:35 WBC 6.9 (4.5-11.0) X10^3/uL RBC 4.83 (4.0-5.2) X10^6/uL Hgb 13.7 (12.0-16.0) g/dL Hct 40.6 (36-46) % MCV 83.9 (80-100) fL MCH 28.2 (26-34) PG MCHC 33.7 (30-36) % RDW 13.6 (11.6-14.8) % Plt Count 205 (150-400) X10^3/uL Neut % (Auto) 62.1 (50-75) % Lymph % (Auto) 29.0 (25-40) % [place] % (Auto) 7.2 (3-14) % Eos % (Auto) 1.1 L (2-4) % Baso % (Auto) 0.6 (0-2) % Neut # (Auto) 4300 (5382-5426) /uL Lymph # (Auto) 2000 (5333-5724) /uL [place] # (Auto) 500 (0-900) /uL Eos # (Auto) 100 (0-450) /uL Baso # (Auto) 0 (0-100) /uL Sodium 139 (137-145) mmol/L Potassium 3.9 (3.4-5.1) mmol/L Chloride 106 (98-107) mmol/L Carbon Dioxide 28 (22-32) mmol/L BUN 13 (7-17) mg/dL Creatinine 0.75 (0.52-1.04) mg/dL Estimated GFR > 60 (>60) mL/min BUN/Creatinine Ratio 17.3 (6-22) Glucose 121 H (70-100) mg/dL Calcium 9.6 (8.4-10.2) mg/dL Total Bilirubin 0.6 (0.2-1.3) mg/dL AST 33 (14-36) IU/L ALT 45 H (<35) IU/L Alkaline Phosphatase 107 (38-126) U/L Troponin I < 0.012 (0.01-0.034) ng/mL Total Protein 8.1 (6.3-8.2) g/dL Albumin 4.3 (3.5-5.0) g/dL Globulin 3.8 (1.7-4.1) g/dL Albumin/Globulin Ratio 1.1 (1.0-2.8) Lipase 86 (23-300) U/L Urine Dip Bedside Urine Glucose Negative Bedside Urine Bilirubin - Negative Bedside Urine Ketone - Negative Urine Specific [place] 1.010 Bedside Urine Occult Blood - Negative Bedside Urine pH 6.5 Bedside Urine Protein - Negative Bedside Urine Urobilinogen - Negative Bedside Urine Nitrite - Negative Bedside Urine Leukocytes - Negative Esterase Point of care testing: Urine Dip Bedside Urine Glucose Negative Bedside Urine Bilirubin - Negative Bedside Urine Ketone - Negative Urine Specific [place] 1.010 Bedside Urine Occult Blood - Negative Bedside Urine pH 6.5 Bedside Urine Protein - Negative Bedside Urine Urobilinogen - Negative Bedside Urine Nitrite - Negative Bedside Urine Leukocytes - Negative Esterase Discharge Plan Departure Patient Disposition: Home Clinical Impression: Abdominal pain Instructions: DI for Abdominal Pain-Adult Activity Restrictions/Additional Instructions: It was a pleasure taking care of you today. It is important to fully read and understand the below. Please ask us if you have any questions. Your testing here is overall reassuring. However, as discussed, it is very important to follow up for additional testing and treatment to continue working on the cause. I think stomach irritation or Ozempic or gastroparesis from diabetes could be contributing. Please stop your Ozempic for now. Please use Zofran, Bentyl as prescribed and continue famotidine. Please see your primary doctor within 3-5 days for reassessment. Your blood pressure was elevated here. Please follow-up with your primary care doctor regarding this and get it reassessed. No tests or assessments are perfect, and your condition could electronic data interchange specialist time. If your symptoms change or worsen, it is very important you immediately seek medical care. If you have any new or worsening pain, inability to eat or drink, worsening bleeding, lightheadedness or passing out, shortness of breath, fever, vomiting, confusion, numbness, weakness, or anything else that concerns you, please immediately seek medical care. If you have been prescribed any medications: please read the drug package inserts on how to properly use the medication and any potential side effects. If you had labs (blood tests) or imaging (CT scan or x-rays) done during your visit: please follow up on the results of these with your primary care doctor, as discussed. In addition, please know the results we received today may be preliminary. Our usual practice is to follow up on tests within a few days of a patient's discharge from the Emergency Department and notify you of any changes. These may lead to changes to your treatment plan. However, the best way to obtain and interpret these test results is through your Primary Care Provider. If you need to update your contact information, please stop by the manager front and alert the Registration personnel before you leave the Emergency Department. Thank you for the opportunity to participate in your healthcare. We are always here and happy to see you in the future. Prescriptions: New ondansetron 4 mg tablet,disintegrating 4 mg PO Q8H PRN (Reason: nausea and vomiting) Qty: 10 0RF dicyclomine 10 mg capsule 10 mg PO QID PRN (Reason: abdominal pain) Qty: 14 0RF No Action lidocaine 5 % adhesive patch,medicated 1 patch topical DAILY PRN (Reason: pain ) Qty: 15 0RF Rx Instructions: leave on most painful area for up to 12 hrs hydrocodone-acetaminophen 5-325 mg tablet 1 tab PO Q6H PRN (Reason: pain) Qty: 14 0RF ondansetron 4 mg tablet,disintegrating 4 mg PO Q8H PRN (Reason: nausea and vomiting) Qty: 10 0RF amlodipine 5 mg tablet 5 mg PO DAILY Qty: 30 0RF Referrals: Enrike Carvajal PA-C [Primary Care Provider] - Stand Alone Forms: Patient Portal/API
--- NOTE | 2023-06-02 12:30 | DI.RAD.S_ITS ---
PROCEDURE: XR CHEST 1V INDICATIONS: epigastric pain TECHNIQUE: One view of the chest was acquired. COMPARISON: [facility], CR, XR CHEST 1V, 03/04/2023, 14:39. FINDINGS: Surgical changes and devices: None. Lungs and pleura: Lungs are clear. No pleural effusions or pneumothorax. Mediastinum: Mediastinal contours appear normal. Heart size is normal. Bones and chest wall: No suspicious bony lesions. Overlying soft tissues appear unremarkable. IMPRESSION: No acute cardiopulmonary abnormality is seen. Approved by: Ayan Martin M.D. on 06/02/2023 at 14:32
[2023-06-02] MEDS: PANTOPRAZOLE 40 MG VIAL IV (12:32)
[2023-06-02] MEDS: SODIUM CHLORIDE 0.9% 1,000 ML 1000 ML IV (12:32)
[2023-06-02] MEDS: MAG HYDROX/ALUMINUM/SIMETH SUS 20 ML, LIDOCAINE VISCOUS 2% 15 ML PO (12:41)
[2023-06-02 12:54] LABS: Add Manual Diff / Slide Review NO; Basophils Absolute Auto 0 /uL (0-100); Basophils Percent Auto 0.6 % (0-2); Eosinophils Absolute Auto 100 /uL (0-450); Eosinophils Percent Auto 1.1 % (2-4); Hematocrit 40.6 % (36-46); Hemoglobin 13.7 g/dL (12.0-16.0); Lymphocytes Absolute Auto 2000 /uL (1100-4500); Mean Corpuscular HGB Conc 33.7 % (30-36); Mean Corpuscular Hemoglobin 28.2 PG (26-34); Mean Corpuscular Volume 83.9 fL (80-100); Monocytes Absolute Auto 500 /uL (0-900); Monocytes Percent Auto 7.2 % (3-14); Neutrophils Absolute Auto 4300 /uL (1500-7000); Neutrophils Percent Auto 62.1 % (50-75); Platelet Count 205 X10^3/uL (150-400); Red Blood Cell Count 4.83 X10^6/uL (4.0-5.2); Red Cell Distribution Width 13.6 % (11.6-14.8); White Blood Cell Count 6.9 X10^3/uL (4.5-11.0)
[2023-06-02 13:04] LABS: Alanine Aminotransferase 45 IU/L (<35); Albumin 4.3 g/dL (3.5-5.0); Albumin Globulin Ratio 1.1 (1.0-2.8); Alkaline Phosphatase 107 U/L (38-126); Aspartate Aminotransferase 33 IU/L (14-36); BUN Creatinine Ratio 17.3 (6-22); Bilirubin Total 0.6 mg/dL (0.2-1.3); Blood Urea Nitrogen 13 mg/dL (7-17); Calcium 9.6 mg/dL (8.4-10.2); Carbon Dioxide 28 mmol/L (22-32); Chloride 106 mmol/L (98-107); Estimated Glomerular Filt Rate > 60 mL/min (>60); Globulin 3.8 g/dL (1.7-4.1); Glucose 121 mg/dL (70-100); HEMOLYSIS < 15 (0-50); Lipase 86 U/L (23-300); Potassium 3.9 mmol/L (3.4-5.1); Sodium 139 mmol/L (137-145); Total Protein 8.1 g/dL (6.3-8.2)
[2023-06-02] MEDS: MORPHINE IR 15 MG TABLET 7.5 MG PO (13:14)
[2023-06-02 13:15] LABS: Troponin I < 0.012 ng/mL (0.01-0.034)
[2023-06-02] MEDS: HALOPERIDOL 5 MG/ML VIAL 2 MG IV (13:54)
== END 2023-06-02 15:03 | disposition home or self-care (01) ==
PROVIDERS: Emergency Provider Emergency Medicine; PCP Student in an Organized Health Care Education/Training Program
DX: R10.13 Epigastric pain (principal); R11.2 Nausea with vomiting, unspecified
CPT/HCPCS: 36415; 71045; 80053; 81003; 83690; 84484; 85025; 93005; 93010; 96374; 96375; 99284; C9113; J1630; J2405

== ENCOUNTER 2023-11-30 16:47 | Observation (INO) | payer OTHER, SELFPAY ==
[2023-11-30] VITALS (8 sets, daily range): BP systolic 149–203; BP diastolic 77–117; PULSE 87–94; RESP 16–24; TEMP 36.6–36.9; O2SAT 97–100; BMI 29.7
--- NOTE | 2023-11-30 17:03 | DI.RAD.S_ITS ---
PROCEDURE: XR CHEST 1V INDICATIONS: chest pain TECHNIQUE: One view of the chest was acquired. COMPARISON: [facility], CR, XR CHEST 1V, 06/02/2023, 12:44. FINDINGS: Surgical changes and devices: None. Lungs and pleura: Lungs are clear. No pleural effusions or pneumothorax. Mediastinum: Mediastinal contours appear normal. Heart size is normal. Bones and chest wall: No suspicious bony lesions. Overlying soft tissues appear unremarkable. IMPRESSION: No acute cardiopulmonary abnormality is seen. Approved by: Kathrine Gottlieb M.D.,Ph.D. on 11/30/2023 at 17:33
--- NOTE | 2023-11-30 17:20 | EKG_ITS ---
[address] [address] Test Date: 2023-11-30 Pat Name: Samra Abdullahi Department: [facility] Room: Gender: Female Direct Chill Caster: JU : 1965 Requested By: Order Number: [id number] Reading MD: Александр Hdz MD Measurements Intervals Fay Rate: 91 P: 46 DC: 160 QRS: 54 QRSD: 84 T: 40 QT: 364 QTc: 447 Interpretive Statements Normal sinus rhythm Cannot rule out Anterior infarct , age undetermined Electronically Signed On 12-04-2023 8:34:17 PDT by Александр Hdz MD
--- NOTE | 2023-11-30 17:46 | DI.CT.S_ITS ---
PROCEDURE: CT STROKE INDICATIONS: right sided numbness TECHNIQUE: Noncontrast 4.5 mm thick angled axial sections acquired from the foramen magnum to the vertex, with coronal reformats. For radiation dose reduction, the following was used: automated exposure control, adjustment of mA and/or kV according to patient size. COMPARISON: None. FINDINGS: Image quality: Diagnostic. CSF spaces: Basal cisterns are patent. No extra-axial fluid collections. Ventricles are normal in size and shape. Brain: No midline shift. No intracranial masses or hemorrhage. [place]-white matter interface is normal. Skull and face: Calvarium and visualized facial bones are intact, without suspicious lesions. Sinuses: Visualized sinuses and mastoids are clear. IMPRESSION: No acute intracranial pathology. Findings were discussed with ED ordering provider at 6:17 p.m. on 11/30/2023 This study fulfills neurological imaging criteria for inclusion or exclusion of acute stroke therapies based on available published neurological imaging guidelines. Approved by: Kathrine Gottlieb M.D.,Ph.D. on 11/30/2023 at 18:18
--- NOTE | 2023-11-30 17:46 | DI.CT.S_ITS ---
PROCEDURE: CT ANGIO HEAD AND NECK INDICATIONS: right sided numbness TECHNIQUE: After the administration of intravenous contrast, 1 mm thick sections acquired from the aortic arch through the [place]. 3-dimensional gihqwzg-gsoldxfwy-oejtsgvjtl (MIP) and/or volume rendering reformats were acquired of the central intracranial vasculature and neck separately. For radiation dose reduction, the following was used: automated exposure control, adjustment of mA and/or kV according to patient size. COMPARISON: [facility], CT, CT ANGIO HEAD AND NECK, 03/03/2023, 18:37. FINDINGS: Image quality: Diagnostic. BRAIN: CSF spaces: Ventricles are normal in size and shape. Basal cisterns are patent. No extra-axial fluid collections. Brain: No significant abnormality of the brain can be seen. Skull and face: Calvarium and facial bones appear intact, without suspicious lesions. Orbits appear normal. Sinuses: Sinuses and mastoids are clear. HEAD CT ANGIOGRAPHY: Anterior circulation: Intracranial internal carotid arteries are normal in size and flow. The flow within the paired anterior cerebral arteries is normal and symmetric. The flow within the middle cerebral arteries is normal and symmetric. The anterior communicating artery is seen. No aneurysms are seen. Posterior circulation: Visualized portions of the vertebral arteries demonstrate normal caliber, and join to form a normal appearing basilar artery. Flow within the posterior cerebral arteries is normal and symmetric. No aneurysms are seen. NECK CT ANGIOGRAPHY: Carotid system: The great vessels demonstrate a conventional anatomy as they arise from the aortic arch. The origins of the common carotid arteries appear patent. The common carotid arteries demonstrate normal caliber and courses. The bifurcation regions are both widely patent. The internal carotid arteries demonstrate normal calibers and courses. Posterior circulation: The origins of the vertebral arteries both appear widely patent. The more superior extracranial portions of both vertebral arteries also demonstrate normal courses and calibers. They join to form a normal appearing basilar artery. Soft tissues: Visualized neck soft tissues demonstrate no suspicious abnormalities. Bones: No suspicious bony lesions. Multilevel degenerative changes of the visualized spine.. IMPRESSION: No significant intracranial arterial abnormality is seen. No significant abnormality is seen within the arteries of the neck. Any quantitative measurements of stenosis were performed using NASCET criteria. Approved by: Kathrine Gottlieb M.D.,Ph.D. on 11/30/2023 at 18:20
--- NOTE | 2023-11-30 17:46 | PC.NURSE ---
Reports previous CVA with some R sided weakness in the past. reports 3 days of feeling weird having intense headaches, very high BP at home, nausea, dizziness. Arrives to ED and while placing IV reports sudden onset R facial numbness, mild R sided facial droop, reports the weakness on R side when performing hand lining cleaner with this RN. Dr Aranda made aware. Code Stroke called overhead at 1742.
[2023-11-30 17:51] LABS: Add Manual Diff / Slide Review NO; Basophils Absolute Auto 100 /uL (0-100); Basophils Percent Auto 0.7 % (0-2); Eosinophils Absolute Auto 200 /uL (0-450); Eosinophils Percent Auto 2.3 % (2-4); Hematocrit 39.1 % (36-46); Hemoglobin 13.2 g/dL (12.0-16.0); Lymphocytes Absolute Auto 2700 /uL (1100-4500); Lymphocytes Percent Auto 34.9 % (25-40); Mean Corpuscular HGB Conc 33.7 % (30-36); Mean Corpuscular Hemoglobin 29.1 PG (26-34); Mean Corpuscular Volume 86.4 fL (80-100); Monocytes Absolute Auto 600 /uL (0-900); Monocytes Percent Auto 7.3 % (3-14); Neutrophils Absolute Auto 4300 /uL (1500-7000); Neutrophils Percent Auto 54.8 % (50-75); Platelet Count 220 X10^3/uL (150-400); Red Blood Cell Count 4.52 X10^6/uL (4.0-5.2); Red Cell Distribution Width 13.4 % (11.6-14.8); White Blood Cell Count 7.8 X10^3/uL (4.5-11.0)
[2023-11-30 18:01] LABS: INR 0.9 (0.9-1.3); Prothrombin Time 10.7 SECONDS (9.4-12.5)
[2023-11-30 18:03] LABS: Ethanol (ETOH) < 10 mg/dL; PTT Partial Thromboplastin Tim 34 SECONDS (25.1-36.5)
[2023-11-30 18:05] LABS: Alanine Aminotransferase 39 IU/L (<35); Albumin 4.1 g/dL (3.5-5.0); Albumin Globulin Ratio 1.2 (1.0-2.8); Alkaline Phosphatase 123 U/L (38-126); Aspartate Aminotransferase 38 IU/L (14-36); BUN Creatinine Ratio 15.8 (6-22); Bilirubin Total 0.3 mg/dL (0.2-1.3); Blood Urea Nitrogen 12 mg/dL (7-17); Calcium 9.4 mg/dL (8.4-10.2); Carbon Dioxide 25 mmol/L (22-32); Chloride 104 mmol/L (98-107); Creatine Kinase 79 U/L (30-135); Estimated Glomerular Filt Rate > 60 mL/min (>60); Globulin 3.4 g/dL (1.7-4.1); Glucose 87 mg/dL (70-100); HEMOLYSIS 29 (0-50); Lipase 117 U/L (23-300); Magnesium 2.2 mg/dL (1.6-2.3); Potassium 3.9 mmol/L (3.4-5.1); Sodium 136 mmol/L (137-145); Total Protein 7.5 g/dL (6.3-8.2)
--- NOTE | 2023-11-30 18:10 | ED_ITS ---
HPI - Headache General Chief Complaint: Headache Stated Complaint: headache,weakness, hx tia Time Seen by Provider: 11/30/23 17:45 Mode of arrival: Ambulatory History of Present Illness HPI Narrative: Patient is a 58-year-old female past medical history of TIA, hypertension, in the ED from home for evaluation of headache ongoing or persistent for the past 3 days. States that this was similar to when she was diagnosed with a TIA previously. Was not complaining of any other symptoms no visual disturbances chest pain shortness breath fever chills nausea vomiting abdominal pain or any other GI/ symptoms time. However during triage patient started complaining of right-sided numbness/weakness, patient with NIH of 1 secondary to these symptoms. Therefore stroke alert was called. No trauma no falls not on any blood thinners Related Data Home Medications Medication Instructions Recorded Confirmed hydrocodone 5 mg-acetaminophen 325 1 tab PO Q6H PRN pain 11/30/23 11/30/23 mg tablet Previous Rx's Medication Instructions Recorded lidocaine 5 % topical patch 1 patch topical DAILY PRN pain 02/01/21 #15 ea hydrocodone 5 mg-acetaminophen 325 1 tab PO Q6H PRN pain #14 tabs 07/28/21 mg tablet ondansetron 4 mg disintegrating 4 mg PO Q8H PRN nausea and 07/28/21 tablet vomiting #10 tabs amlodipine 5 mg tablet 5 mg PO DAILY #30 tabs 03/04/23 dicyclomine 10 mg capsule 10 mg PO QID PRN abdominal pain 06/02/23 #14 caps ondansetron 4 mg disintegrating 4 mg PO Q8H PRN nausea and 06/02/23 tablet vomiting #10 tabs Allergies Allergy/AdvReac Type Severity Reaction Status Date / Time hydroxychloroquine Allergy Severe Anaphylaxis Verified 11/30/23 18:51 metaxalone [From Skelaxin] Allergy Severe Anaphylaxis Verified 11/30/23 18:51 sertraline Allergy Severe Anaphylaxis Verified 11/30/23 18:51 Sulfa (Sulfonamide Allergy Severe Anaphylaxis Verified 11/30/23 18:51 Antibiotics) tramadol Allergy Severe Anaphylaxis Verified 11/30/23 18:51 bupropion Allergy Verified 11/30/23 18:51 diphenhydramine Allergy Verified 11/30/23 18:51 duloxetine Allergy Verified 11/30/23 18:51 lamotrigine Allergy Verified 11/30/23 18:51 oxycodone Allergy Verified 11/30/23 18:51 promethazine [From Phenergan] Allergy Verified 11/30/23 18:51 benzonatate AdvReac Mild Verified 11/30/23 18:51 amoxicillin AdvReac Verified 11/30/23 18:51 citalopram AdvReac Verified 11/30/23 18:51 Gadolinium-Containing AdvReac Verified 11/30/23 18:51 Contrast Medi haloperidol AdvReac Verified 11/30/23 18:51 ketorolac AdvReac Verified 11/30/23 18:51 metoclopramide [From Reglan] AdvReac Verified 11/30/23 18:51 naproxen AdvReac Verified 11/30/23 18:51 pregabalin AdvReac Verified 11/30/23 18:51 prochlorperazine AdvReac Verified 11/30/23 18:51 quetiapine AdvReac Verified 11/30/23 18:51 spironolactone AdvReac Verified 11/30/23 18:51 Review of Systems Review of Systems Narrative: HEENT: Positive headache, Denies, eye drainage, eye irritation, head trauma, sore throat, voice change Cardiovascular: Denies any chest pain, palpitations, shortness of breath, tachycardia Respiratory: Denies any shortness of breath, cough, wheeze, stridor GI/: Denies any abdominal pain, nausea, vomiting, diarrhea, bright red blood per rectum, melanotic stools, urinary frequency, urinary retention, dysuria, hematuria MSK: Denies any joint pain, muscle pains, swelling Skin: Denies any rashes, lesions, discoloration Neuro: Denies any headache, lightheadedness, dizziness, fainting, positive left-sided numbness weakness Psych: Denies SI/HI Patient History Social History Smoking Status: Current some day smoker Smoking Status: Current some day smoker tobacco type: vaping alcohol intake frequency: holidays/special occasions only Substance Use Type: does not use Exam Narrative Exam Narrative: General: Cooperative, comfortable, well-developed, not in acute distress HEENT: Normocephalic, atraumatic, PERRLA, normal sclera, eyelids normal, Neck: Active full range of motion, atraumatic Chest: Normal to inspection, negative crepitus, no overlying erythema ecchymosis Respiratory: Normal respiratory effort, not in acute respiratory distress, clear to auscultation bilaterally negative cough, wheeze, tachypnea, rhonchi, rales Cardiology: Regular rate rhythm negative gallop, murmur, rubs GI/: Normal to inspection, soft, nonrigid, no tenderness to palpation, exam deferred MSK: Full range of active range of motion of all 4 extremities, atraumatic Skin: No rashes lesions noted Neuro: Alert awake oriented x3, moves all 4 extremities spontaneously, cranial nerves intact, able to answer all questions appropriately follows commands appropriately, NIH of 1, for decreased sensation to the left side upper and lower extremity, but no other focal deficits noted Psych: Cooperative, negative suicidal or homicidal ideations Initial Vital Signs Initial Vital Signs: Vital Signs Temperature 98.5 F 11/30/23 16:51 Pulse Rate 90 11/30/23 16:51 Respiratory Rate 22 11/30/23 16:51 Blood Pressure 203/117 H 11/30/23 16:51 Pulse Oximetry 99 11/30/23 16:51 Oxygen Delivery Method Room Air 11/30/23 16:51 Course Orders Ordered: ED Orders 11/30/23 17:03 XR chest 1V Stat EKG-12 Lead Stat 11/30/23 17:38 Complete Blood Count AUTO DIFF Stat Comprehensive Metabolic Panel Stat Lipase Stat Magnesium Stat NT-proBNP (BNP-Adult 18+) Stat PTT Partial Thromboplastin Dieudonne Stat Prothrombin Time INR Stat Troponin & CK Cardiac Panel Stat 11/30/23 17:45 Covid-19 + FLU A/B + RSV - PCR Stat 11/30/23 17:[address] angio head and neck Stat Ethanol (ETOH) Stat Urine Drug Screen, Rapid Stat EKG-12 Lead Stat 11/30/23 18:05 Urinalysis and Microscopic Stat Acetaminophen (Acetaminophen 325 Mg Tablet) 650 mg PO Q6H PRN PRN Reason: Fever/Mild Pain (1-3) Hydrocodone Bitart/Acetaminophen (Hydrocodone/Acet 5/325 Tablet) 1 tab PO Q6H PRN PRN Reason: pain Amlodipine Besylate (Amlodipine 5 Mg Tablet) 5 mg PO DAILY ALEX Calcium Carbonate (Calcium Carbonate 500 Mg Tab) 1,000 mg PO Q4HR PRN PRN Reason: Dyspepsia Dicyclomine HCl (Dicyclomine 10 Mg Capsule) 10 mg PO QID PRN PRN Reason: abdominal pain Naloxone HCl (Naloxone 0.4 Mg/Ml Vial) 0.2 mg IV Q2MIN PRN PRN Reason: Opiate Reversal Ondansetron HCl (Ondansetron 4 Mg Odt) 4 mg PO Q8HR PRN PRN Reason: Nausea And Vomiting Discontinued Medications Aspirin (Aspirin 81 Mg Chew Tab) 324 mg PO NOW ONE Stop: 11/30/23 17:04 Last Admin: 11/30/23 18:29 Dose: 324 mg Documented By: MLAdan Diphenhydramine HCl (Diphenhydramine 50 Mg/Ml Vial) 25 mg IV NOW ONE Stop: 11/30/23 18:28 Last Admin: 11/30/23 18:44 Dose: Not Given Documented By: MLAdan Sodium Chloride (Normal Saline 0.9%) 1,000 mls @ 1,000 mls/hr IV BOLUS ONE Stop: 11/30/23 19:26 Last Admin: 11/30/23 18:35 Dose: 1,000 mls/hr Documented By: MLAdan Metoclopramide HCl (Metoclopramide 10 Mg/2 Ml Inj) 10 mg IV NOW ONE Stop: 11/30/23 18:28 Last Admin: 11/30/23 18:45 Dose: Not Given Documented By: MLAdan Morphine Sulfate (Morphine 4 Mg/Ml Inj) 4 mg IV NOW ONE Stop: 11/30/23 19:05 Last Admin: 11/30/23 19:13 Dose: 4 mg Documented By: MLAdan Ondansetron HCl (Ondansetron 4 Mg/2 Ml Inj) 4 mg IV NOW ONE Stop: 11/30/23 18:54 Last Admin: 11/30/23 19:13 Dose: 4 mg Documented By: ANICETO Vital Signs Vital signs: Vital Signs - 8 hr 11/30/23 16:51 11/30/23 18:08 11/30/23 18:30 Temperature 98.5 F Pulse Rate 90 93 H Respiratory Rate 22 Blood Pressure 203/117 H 177/97 H Pulse Oximetry 99 100 Oxygen Delivery Method Room Air 11/30/23 18:30 11/30/23 19:00 11/30/23 19:01 Temperature Pulse Rate 92 H 92 H Respiratory Rate 23 17 Blood Pressure 167/77 H Pulse Oximetry 100 99 Oxygen Delivery Method 11/30/23 19:01 11/30/23 19:14 11/30/23 19:14 Temperature Pulse Rate 94 H 92 H Respiratory Rate 24 18 Blood Pressure 164/90 H Pulse Oximetry 100 99 Oxygen Delivery Method 11/30/23 19:30 11/30/23 19:30 Temperature Pulse Rate 92 H Respiratory Rate 16 Blood Pressure 149/84 H Pulse Oximetry 97 Oxygen Delivery Method MDM - Headache Differential Diagnosis Differential diagnosis: Likely migraine, headache and other (CVA, TIA) Condition is:: Well Controlled Medical Records Attestation: I reviewed the patient's medical records. Lab Data Attestation: I reviewed the patient's lab results. 11/30/23 17:38 11/30/23 17:38 Labs: Lab Results 11/30/23 11/30/23 11/30/23 Range/Units 17:38 17:45 18:03 WBC 7.8 (4.5-11.0) X10^3/uL RBC 4.52 (4.0-5.2) X10^6/uL Hgb 13.2 (12.0-16.0) g/dL Hct 39.1 (36-46) % MCV 86.4 (80-100) fL MCH 29.1 (26-34) PG MCHC 33.7 (30-36) % RDW 13.4 (11.6-14.8) % Plt Count 220 (150-400) X10^3/uL Neut % (Auto) 54.8 (50-75) % Lymph % (Auto) 34.9 (25-40) % [place] % (Auto) 7.3 (3-14) % Eos % (Auto) 2.3 (2-4) % Baso % (Auto) 0.7 (0-2) % Neut # (Auto) 4300 (0377-0709) /uL Lymph # (Auto) 2700 (4522-4679) /uL [place] # (Auto) 600 (0-900) /uL Eos # (Auto) 200 (0-450) /uL Baso # (Auto) 100 (0-100) /uL PT 10.7 (9.4-12.5) SECONDS INR 0.9 (0.9-1.3) APTT 34 (25.1-36.5) SECONDS Sodium 136 L (137-145) mmol/L Potassium 3.9 (3.4-5.1) mmol/L Chloride 104 (98-107) mmol/L Carbon Dioxide 25 (22-32) mmol/L BUN 12 (7-17) mg/dL Creatinine 0.76 (0.52-1.04) mg/dL Estimated GFR > 60 (>60) mL/min BUN/Creatinine Ratio 15.8 (6-22) Glucose 87 (70-100) mg/dL Calcium 9.4 (8.4-10.2) mg/dL Magnesium 2.2 (1.6-2.3) mg/dL Total Bilirubin 0.3 (0.2-1.3) mg/dL AST 38 H (14-36) IU/L ALT 39 H (<35) IU/L Alkaline Phosphatase 123 (38-126) U/L Total Creatine Kinase 79 (30-135) U/L Troponin I < 0.012 (0.01-0.034) ng/mL NT-Pro-B Natriuret Pep 48 (<125) pg/mL Total Protein 7.5 (6.3-8.2) g/dL Albumin 4.1 (3.5-5.0) g/dL Globulin 3.4 (1.7-4.1) g/dL Albumin/Globulin Ratio 1.2 (1.0-2.8) Lipase 117 (23-300) U/L Urine Color Yellow Urine Appearance Clear Urine pH 7.0 (4.5-8.0) Ur Specific [place] 1.010 (1.000-1.035) Urine Protein Negative (Negative) Urine Glucose (UA) Negative (Negative) g/dL Urine Ketones Negative (NEGATIVE) Urine Occult Blood Negative (Negative) Urine Nitrate Negative (Negative) Urine Bilirubin Negative (NEGATIVE) Urine Urobilinogen 0.2 (0.2) E.U./dL Ur Leukocyte Esterase Negative (NEGATIVE) Urine RBC None seen (0-5/HPF) Urine WBC None seen (0-5/HPF) Ur Squamous Epith Cells 0-1 /hpf (0-5/HPF) Urine Bacteria Occasional (0-1) (None) Ur Culture Indicated? Cult not indicated Vol Urine Centrifuged 10ml (spun) U Opiates 300ng/mL cut Positive H (Negative) Ur Oxycodone Screen Negative (Negative) Urine Methadone Screen Negative (Negative) Ur Barbiturates Screen Negative (Negative) U Tricyclic Antidepress Negative (Negative) Ur Phencyclidine Scrn Negative (Negative) Ur Amphetamines Screen Negative (Negative) U Methamphetamines Scrn Negative (Negative) Ur MDMA Scrn (Ecstasy) Negative (Negative) U Benzodiazepines Scrn Negative (Negative) Urine Cocaine Screen Negative (Negative) U Marijuana (THC) Screen Negative (Negative) Urine Specific [place] (Normal) Ethyl Alcohol < 10 ( - 10) mg/dL Ur Creatinine (Normal) SARS-CoV-2 (PCR) Negative (Negative) Influenza A (RT-PCR) Flu a negative (NEGATIVE) Influenza B (RT-PCR) Flu b negative (NEGATIVE) RSV (PCR) Negative (Negative) 11/30/23 Range/Units 18:03 WBC (4.5-11.0) X10^3/uL RBC (4.0-5.2) X10^6/uL Hgb (12.0-16.0) g/dL Hct (36-46) % MCV (80-100) fL MCH (26-34) PG MCHC (30-36) % RDW (11.6-14.8) % Plt Count (150-400) X10^3/uL Neut % (Auto) (50-75) % Lymph % (Auto) (25-40) % [place] % (Auto) (3-14) % Eos % (Auto) (2-4) % Baso % (Auto) (0-2) % Neut # (Auto) (6576-0568) /uL Lymph # (Auto) (9778-5712) /uL [place] # (Auto) (0-900) /uL Eos # (Auto) (0-450) /uL Baso # (Auto) (0-100) /uL PT (9.4-12.5) SECONDS INR (0.9-1.3) APTT (25.1-36.5) SECONDS Sodium (137-145) mmol/L Potassium (3.4-5.1) mmol/L Chloride (98-107) mmol/L Carbon Dioxide (22-32) mmol/L BUN (7-17) mg/dL Creatinine (0.52-1.04) mg/dL Estimated GFR (>60) mL/min BUN/Creatinine Ratio (6-22) Glucose (70-100) mg/dL Calcium (8.4-10.2) mg/dL Magnesium (1.6-2.3) mg/dL Total Bilirubin (0.2-1.3) mg/dL AST (14-36) IU/L ALT (<35) IU/L Alkaline Phosphatase (38-126) U/L Total Creatine Kinase (30-135) U/L Troponin I (0.01-0.034) ng/mL NT-Pro-B Natriuret Pep (<125) pg/mL Total Protein (6.3-8.2) g/dL Albumin (3.5-5.0) g/dL Globulin (1.7-4.1) g/dL Albumin/Globulin Ratio (1.0-2.8) Lipase (23-300) U/L Urine Color Urine Appearance Urine pH Normal (4.5-8.0) Ur Specific [place] (1.000-1.035) Urine Protein (Negative) Urine Glucose (UA) (Negative) g/dL Urine Ketones (NEGATIVE) Urine Occult Blood (Negative) Urine Nitrate (Negative) Urine Bilirubin (NEGATIVE) Urine Urobilinogen (0.2) E.U./dL Ur Leukocyte Esterase (NEGATIVE) Urine RBC (0-5/HPF) Urine WBC (0-5/HPF) Ur Squamous Epith Cells (0-5/HPF) Urine Bacteria (None) Ur Culture Indicated? Vol Urine Centrifuged U Opiates 300ng/mL cut (Negative) Ur Oxycodone Screen (Negative) Urine Methadone Screen (Negative) Ur Barbiturates Screen (Negative) U Tricyclic Antidepress (Negative) Ur Phencyclidine Scrn (Negative) Ur Amphetamines Screen (Negative) U Methamphetamines Scrn (Negative) Ur MDMA Scrn (Ecstasy) (Negative) U Benzodiazepines Scrn (Negative) Urine Cocaine Screen (Negative) U Marijuana (THC) Screen (Negative) Urine Specific [place] Normal (Normal) Ethyl Alcohol ( - 10) mg/dL Ur Creatinine Normal (Normal) SARS-CoV-2 (PCR) (Negative) Influenza A (RT-PCR) (NEGATIVE) Influenza B (RT-PCR) (NEGATIVE) RSV (PCR) (Negative) ECG Data Attestation: I personally reviewed and interpreted this ECG as follows: Interpretation: EKG interpreted by ED physician sinus at 91 beats per minute QTC 447, normal axis nonspecific ST changes no STEMI MDM Narrative Medical decision making narrative: Patient is a 58-year-old female past medical history of hypertension, TIA, comes into the ED from home for evaluation of headache and numbness weakness tingling to left side of body. She was complaining of a headache for the past 3 days states it is similar from when she had a TIA in the past, not on any blood thinners. While being evaluated in the emergency department patient has started developing new onset numbness tingling to the left side of the body, therefore stroke alert was called, CT head, CTA head and neck not concerning for any acute finding. However given patient's history of TIA patient will require admission for observation for TIA. The patient's management plan was discussed Hospitalist, who agrees to admit the patient to their service and assumes care of this patient at this time. Full admission orders will be placed by the primary team. Discharge Plan Departure Patient Disposition: Admitted as Observation Clinical Impression: TIA (transient ischemic attack) Admit Date/Time: 11/30/23 19:33 Admit Provider: Abel Fung
[2023-11-30 18:13] LABS: Appearance Urine UA CLEAR; Bilirubin Urine UA NEGATIVE (NEGATIVE); Color Urine UA YELLOW; Glucose Urine UA NEGATIVE (Negative); Ketones Urine UA NEGATIVE (NEGATIVE); Leukocyte Esterase Urine UA NEGATIVE (NEGATIVE); Nitrite Urine UA NEGATIVE (Negative); Occult Blood Urine UA NEGATIVE (Negative); Protein Urine UA NEGATIVE (Negative); Urobilinogen Urine UA 0.2 E.U./dL (0.2)
[2023-11-30 18:15] LABS: UR Morphine/Opiate cutoff 300 Positive (Negative); Ur Creatinine Normal (Normal); Ur Specific Gravity Normal (Normal); Urine Amphetamines Negative (Negative); Urine Barbiturates Negative (Negative); Urine Benzodiazepines Negative (Negative); Urine Cocaine Negative (Negative); Urine MDMA Negative (Negative); Urine Methadone Negative (Negative); Urine Methamphetamines Negative (Negative); Urine Oxycodone Negative (Negative); Urine Phencyclidine Negative (Negative); Urine Tetrahydrocannabinol Negative (Negative); Urine Tricyclic Antidepressant Negative (Negative); Urine pH Normal (Normal)
[2023-11-30 18:16] LABS: NT-proBNP (BNP-Adult 18+) 48 pg/mL (<125); Troponin I < 0.012 ng/mL (0.01-0.034)
[2023-11-30 18:19] LABS: Bacteria Urine Occasional (0-1); Culture Indicated Urine Cult Not Indicated; RBC Urine None Seen (0-5/HPF); Squamous Epithelial Cell Urine 0-1 /HPF (0-5/HPF); Urine Volume 10mL (spun); WBC Urine None Seen (0-5/HPF)
[2023-11-30 18:27] LABS: Influenza A - CEPHEID Flu A NEGATIVE (NEGATIVE); Influenza B - CEPHEID Flu B NEGATIVE (NEGATIVE); Respiratory Syncytial Virus Negative (Negative)
[2023-11-30 18:28] LABS: COVID-19 CEPHEID 4-PLEX PCR Negative (Negative)
[2023-11-30] MEDS: ASPIRIN 81 MG CHEW TAB 324 MG PO (18:29)
[2023-11-30] MEDS: SODIUM CHLORIDE 0.9% 1,000 ML 1000 ML IV (18:35)
[2023-11-30] MEDS: MORPHINE 4 MG/ML INJ IV (19:13)
[2023-11-30] MEDS: ONDANSETRON 4 MG/2 ML INJ IV (19:13)
[2023-11-30] MEDS: PRAMIPEXOLE 0.25 MG TABLET 1 MG PO (22:38)
[2023-11-30] MEDS: HYDROMORPHONE 2 MG TABLET PO (23:05)
--- NOTE | 2023-11-30 23:10 | PM.HP.1 ---
History of Present Illness History of Present Illness Chief complaint: headache,weakness, hx tia Narrative: 58 y/o came to the ED complaining on severe headache and then on Rt facial and Rt arm numbness. To me she mentioned Rt leg heaviness as well. All of these started to happen 2-3 days ago. She reported history of TIAs and last episode was 2 years ago, similar but not so intense to current one. It also involved facial numbness. CTH and CTA not diagnostic. NIH 1 on admission. For all the time in the ED hypertensive, initially with SBP > 200. Placed in observation on telemetry with diagnosis of uncontrolled HTN, headache and suspected TIA. [facility] [place] Medical History (Updated 11/30/23 @ 23:50 by Abel Seals MD) Restless legs Irritable bowel Headache Social History household members: spouse Smoking Status: Current some day smoker Meds Home Medications and Allergies Home Medications Medication Instructions Recorded Confirmed Type lidocaine 5 % topical patch 1 patch topical DAILY PRN pain 02/01/21 11/30/23 Rx #15 ea hydrocodone 5 mg-acetaminophen 325 1 tab PO Q6H PRN pain #14 tabs 07/28/21 11/30/23 Rx mg tablet ondansetron 4 mg disintegrating 4 mg PO Q8H PRN nausea and 07/28/21 11/30/23 Rx tablet vomiting #10 tabs amlodipine 5 mg tablet 5 mg PO DAILY #30 tabs 03/04/23 11/30/23 Rx hydrocodone 5 mg-acetaminophen 325 1 tab PO Q6H PRN pain 11/30/23 11/30/23 History mg tablet levothyroxine 200 mcg tablet 200 mcg PO DAILY 11/30/23 11/30/23 History pramipexole 0.25 mg tablet 1 mg PO ONCE PM 11/30/23 11/30/23 History tizanidine 4 mg tablet 4 mg PO BID 11/30/23 11/30/23 History Allergies Allergy/AdvReac Type Severity Reaction Status Date / Time hydroxychloroquine Allergy Severe Anaphylaxis Verified 11/30/23 18:51 metaxalone [From Skelaxin] Allergy Severe Anaphylaxis Verified 11/30/23 18:51 sertraline Allergy Severe Anaphylaxis Verified 11/30/23 18:51 Sulfa (Sulfonamide Allergy Severe Anaphylaxis Verified 11/30/23 18:51 Antibiotics) tramadol Allergy Severe Anaphylaxis Verified 11/30/23 18:51 bupropion Allergy Verified 11/30/23 18:51 diphenhydramine Allergy Verified 11/30/23 18:51 duloxetine Allergy Verified 11/30/23 18:51 lamotrigine Allergy Verified 11/30/23 18:51 oxycodone Allergy Verified 11/30/23 18:51 promethazine [From Phenergan] Allergy Verified 11/30/23 18:51 benzonatate AdvReac Mild Verified 11/30/23 18:51 amoxicillin AdvReac Verified 11/30/23 18:51 citalopram AdvReac Verified 11/30/23 18:51 Gadolinium-Containing AdvReac Verified 11/30/23 18:51 Contrast Medi haloperidol AdvReac Verified 11/30/23 18:51 ketorolac AdvReac Verified 11/30/23 18:51 metoclopramide [From Reglan] AdvReac Verified 11/30/23 18:51 naproxen AdvReac Verified 11/30/23 18:51 pregabalin AdvReac Verified 11/30/23 18:51 prochlorperazine AdvReac Verified 11/30/23 18:51 quetiapine AdvReac Verified 11/30/23 18:51 spironolactone AdvReac Verified 11/30/23 18:51 Review of Systems Constitutional Comments: w/o fever or chills Eyes Comments: w/o vision changes ENT Comments: w/o congestion Cardiovascular Comments: reported chest pressure on and off Respiratory Comments: exertional dyspnea Gastrointestinal Comments: w/o complaints Genitourinary Comments: w/o dysuria Neurologic Comments: headache, facial and right arm numbness Psychiatric Comments: anxious Exam Vital Signs (past 8 hours): - 11/30/23 16:51 11/30/23 18:08 11/30/23 18:30 Temperature 98.5 F Pulse Rate 90 93 H Respiratory Rate 22 Blood Pressure 203/117 H 177/97 H Pulse Oximetry 99 100 Oxygen Delivery Method Room Air 11/30/23 18:30 11/30/23 19:00 11/30/23 19:01 Temperature Pulse Rate 92 H 92 H Respiratory Rate 23 17 Blood Pressure 167/77 H Pulse Oximetry 100 99 Oxygen Delivery Method 11/30/23 19:01 11/30/23 19:14 11/30/23 19:14 Temperature Pulse Rate 94 H 92 H Respiratory Rate 24 18 Blood Pressure 164/90 H Pulse Oximetry 100 99 Oxygen Delivery Method 11/30/23 19:30 11/30/23 19:30 Temperature Pulse Rate 92 H Respiratory Rate 16 Blood Pressure 149/84 H Pulse Oximetry 97 Oxygen Delivery Method Oxygen Delivery Method Room Air Const Other: in no distress, laying in bed HENMT Other: normocephalic Eyes Other: eomi Neck Other: supple Resp Other: normal respiratory effort Cardio Other: RRR GI Other: soft, not distended Skin Other: w/o rashes Neuro Other: w/o obvious focal weakness Extrem Other: w/o swelling Psych Other: anxiety Objective ECG Impression: NSR 91, w/o arrhythmic / ischemic changes Labs 11/30/23 17:38 11/30/23 17:38 Labs: Laboratory Results - last 24 hr 11/30/23 11/30/23 11/30/23 17:38 17:45 18:03 WBC 7.8 RBC 4.52 Hgb 13.2 Hct 39.1 MCV 86.4 MCH 29.1 MCHC 33.7 RDW 13.4 Plt Count 220 Neut % (Auto) 54.8 Lymph % (Auto) 34.9 [place] % (Auto) 7.3 Eos % (Auto) 2.3 Baso % (Auto) 0.7 Neut # (Auto) 4300 Lymph # (Auto) 2700 [place] # (Auto) 600 Eos # (Auto) 200 Baso # (Auto) 100 PT 10.7 INR 0.9 APTT 34 Sodium 136 L Potassium 3.9 Chloride 104 Carbon Dioxide 25 BUN 12 Creatinine 0.76 Estimated GFR > 60 BUN/Creatinine Ratio 15.8 Glucose 87 Calcium 9.4 Magnesium 2.2 Total Bilirubin 0.3 AST 38 H ALT 39 H Alkaline Phosphatase 123 Total Creatine Kinase 79 Troponin I < 0.012 NT-Pro-B Natriuret Pep 48 Total Protein 7.5 Albumin 4.1 Globulin 3.4 Albumin/Globulin Ratio 1.2 Lipase 117 Urine Color Yellow Urine Appearance Clear Urine pH 7.0 Ur Specific [place] 1.010 Urine Protein Negative Urine Glucose (UA) Negative Urine Ketones Negative Urine Occult Blood Negative Urine Nitrate Negative Urine Bilirubin Negative Urine Urobilinogen 0.2 Ur Leukocyte Esterase Negative Urine RBC None seen Urine WBC None seen Ur Squamous Epith Cells 0-1 /hpf Urine Bacteria Occasional (0-1) Ur Culture Indicated? Cult not indicated Vol Urine Centrifuged 10ml (spun) U Opiates 300ng/mL cut Positive H Ur Oxycodone Screen Negative Urine Methadone Screen Negative Ur Barbiturates Screen Negative U Tricyclic Antidepress Negative Ur Phencyclidine Scrn Negative Ur Amphetamines Screen Negative U Methamphetamines Scrn Negative Ur MDMA Scrn (Ecstasy) Negative U Benzodiazepines Scrn Negative Urine Cocaine Screen Negative U Marijuana (THC) Screen Negative Urine Specific [place] Ethyl Alcohol < 10 Ur Creatinine SARS-CoV-2 (PCR) Negative Influenza A (RT-PCR) Flu a negative Influenza B (RT-PCR) Flu b negative RSV (PCR) Negative 11/30/23 18:03 WBC RBC Hgb Hct MCV MCH MCHC RDW Plt Count Neut % (Auto) Lymph % (Auto) [place] % (Auto) Eos % (Auto) Baso % (Auto) Neut # (Auto) Lymph # (Auto) [place] # (Auto) Eos # (Auto) Baso # (Auto) PT INR APTT Sodium Potassium Chloride Carbon Dioxide BUN Creatinine Estimated GFR BUN/Creatinine Ratio Glucose Calcium Magnesium Total Bilirubin AST ALT Alkaline Phosphatase Total Creatine Kinase Troponin I NT-Pro-B Natriuret Pep Total Protein Albumin Globulin Albumin/Globulin Ratio Lipase Urine Color Urine Appearance Urine pH Normal Ur Specific [place] Urine Protein Urine Glucose (UA) Urine Ketones Urine Occult Blood Urine Nitrate Urine Bilirubin Urine Urobilinogen Ur Leukocyte Esterase Urine RBC Urine WBC Ur Squamous Epith Cells Urine Bacteria Ur Culture Indicated? Vol Urine Centrifuged U Opiates 300ng/mL cut Ur Oxycodone Screen Urine Methadone Screen Ur Barbiturates Screen U Tricyclic Antidepress Ur Phencyclidine Scrn Ur Amphetamines Screen U Methamphetamines Scrn Ur MDMA Scrn (Ecstasy) U Benzodiazepines Scrn Urine Cocaine Screen U Marijuana (THC) Screen Urine Specific [place] Normal Ethyl Alcohol Ur Creatinine Normal SARS-CoV-2 (PCR) Influenza A (RT-PCR) Influenza B (RT-PCR) RSV (PCR) Assessment & Plan Assessment and plan (1) Severe uncontrolled hypertension: Status: Acute (2) TIA (transient ischemic attack): Status: Acute (3) Headache: Status: Inactive (4) Irritable bowel: Status: Acute (5) Restless legs: Status: Acute Assessment & Plan narrative: Headache - likely related to uncontrolled HTN - w/o Hx of migraines - DD complicated migraine - BP control, prn Tylenol, Fioricet, Dilaudid Rt facial numbness, Rt arm numbness, Rt leg heaviness - possible TIA - CTH and CTA non-revealing. NIH 1. - telemetry monitoring, ASA, pending echocardiogram, lipids, A1C, TSH HTN - uncontrolled - likely HTN urgency with above symptoms - she does check BP at home periodically and last few days it was running high - home Norvasc increased from 5 to 10 mg daily - prn hydralazine RLS - pramipexole IBS - prn Bentyl DVT prophylaxis - SCDs Time-Based Coding :: [TOTAL MINUTES] spent with patient and on the chart (including review of chart, obtaining history, exam, reviewing outside data, placing orders, documenting exam and treatment plan, and counseling patient) on [DATE].
[2023-12-01] MEDS: BUTALB/APAP/CAFFEINE 50/325/40 TABLET 1 EACH PO ×4 (00:12→17:11)
[2023-12-01 02:00] VITALS: BP 130/83; PULSE 90; RESP 16; TEMP 36.2; O2SAT 100
[2023-12-01 05:02] LABS: Cholesterol 184 mg/dL (140-199); HDL Cholesterol 44 mg/dL (40-60); LDL Cholesterol Calculated 88 mg/dL (<100); Triglycerides 261 mg/dL (35-150)
[2023-12-01] MEDS: ONDANSETRON 4 MG ODT PO ×2 (05:43→20:00)
[2023-12-01] MEDS: HYDROMORPHONE 2 MG TABLET PO ×3 (05:46→18:47)
[2023-12-01 06:24] LABS: Thyroid Stimulating Hormone < 0.015 uIU/mL (0.47-4.68)
--- NOTE | 2023-12-01 08:08 | PM.PN.1 ---
Subjective Subjective Date Patient Seen: 12/01/23 Interval history: Her brain MRI today shows no cause of the headache. Her blood pressure has normalized but the right-sided headache persists. She insists that the halos she is seeing our glaucoma related and not migraines and she also says that she has no history of migraines. She had been not using her eyedrops for several days so that will be resumed. She is allergic to many medicines, including ketorolac. She is also having nausea. Zofran is the only nausea medicine she can tolerate and it has not been helping much. She received 1.5 mg of IV lorazepam for claustrophobia related to the MRI today without any benefit to her headaches. The CBC, CMP were normal except for AST 31 and ALT 39. The TSH is less than 0.015 on her levothyroxine 200 mcg dose. That will be decreased. Exam Vital Signs (past 8 hours): - 12/01/23 02:00 Temperature 97.2 F L Pulse Rate 90 Respiratory Rate 16 Blood Pressure 130/83 Pulse Oximetry 100 Oxygen Flow Rate 0 Oxygen Delivery Method Room Air Oxygen Flow Rate 0 Narrative Exam Narrative: She is alert and oriented x3. She is in moderate distress with a continue headaches. Heart is regular rate and rhythm without murmur Lungs are clear to auscultation bilaterally. Extremities have no ankle edema. Neurological exam. No tremor. Cranial nerves test intact. Motor function is symmetric and intact. Abdomen is soft, bowel sounds positive, nontender, no organomegaly. Objective Labs 11/30/23 17:38 11/30/23 17:38 Labs: Laboratory Results - last 24 hr 11/30/23 11/30/23 11/30/23 17:38 17:45 18:03 WBC 7.8 RBC 4.52 Hgb 13.2 Hct 39.1 MCV 86.4 MCH 29.1 MCHC 33.7 RDW 13.4 Plt Count 220 Neut % (Auto) 54.8 Lymph % (Auto) 34.9 [place] % (Auto) 7.3 Eos % (Auto) 2.3 Baso % (Auto) 0.7 Neut # (Auto) 4300 Lymph # (Auto) 2700 [place] # (Auto) 600 Eos # (Auto) 200 Baso # (Auto) 100 PT 10.7 INR 0.9 APTT 34 Sodium 136 L Potassium 3.9 Chloride 104 Carbon Dioxide 25 BUN 12 Creatinine 0.76 Estimated GFR > 60 BUN/Creatinine Ratio 15.8 Glucose 87 Calcium 9.4 Magnesium 2.2 Total Bilirubin 0.3 AST 38 H ALT 39 H Alkaline Phosphatase 123 Total Creatine Kinase 79 Troponin I < 0.012 NT-Pro-B Natriuret Pep 48 Total Protein 7.5 Albumin 4.1 Globulin 3.4 Albumin/Globulin Ratio 1.2 Triglycerides Cholesterol LDL Cholesterol, Calc HDL Cholesterol Lipase 117 TSH Urine Color Yellow Urine Appearance Clear Urine pH 7.0 Ur Specific [place] 1.010 Urine Protein Negative Urine Glucose (UA) Negative Urine Ketones Negative Urine Occult Blood Negative Urine Nitrate Negative Urine Bilirubin Negative Urine Urobilinogen 0.2 Ur Leukocyte Esterase Negative Urine RBC None seen Urine WBC None seen Ur Squamous Epith Cells 0-1 /hpf Urine Bacteria Occasional (0-1) Ur Culture Indicated? Cult not indicated Vol Urine Centrifuged 10ml (spun) U Opiates 300ng/mL cut Positive H Ur Oxycodone Screen Negative Urine Methadone Screen Negative Ur Barbiturates Screen Negative U Tricyclic Antidepress Negative Ur Phencyclidine Scrn Negative Ur Amphetamines Screen Negative U Methamphetamines Scrn Negative Ur MDMA Scrn (Ecstasy) Negative U Benzodiazepines Scrn Negative Urine Cocaine Screen Negative U Marijuana (THC) Screen Negative Urine Specific [place] Ethyl Alcohol < 10 Ur Creatinine SARS-CoV-2 (PCR) Negative Influenza A (RT-PCR) Flu a negative Influenza B (RT-PCR) Flu b negative RSV (PCR) Negative 11/30/23 12/01/23 18:03 04:30 WBC RBC Hgb Hct MCV MCH MCHC RDW Plt Count Neut % (Auto) Lymph % (Auto) [place] % (Auto) Eos % (Auto) Baso % (Auto) Neut # (Auto) Lymph # (Auto) [place] # (Auto) Eos # (Auto) Baso # (Auto) PT INR APTT Sodium Potassium Chloride Carbon Dioxide BUN Creatinine Estimated GFR BUN/Creatinine Ratio Glucose Calcium Magnesium Total Bilirubin AST ALT Alkaline Phosphatase Total Creatine Kinase Troponin I NT-Pro-B Natriuret Pep Total Protein Albumin Globulin Albumin/Globulin Ratio Triglycerides 261 H Cholesterol 184 LDL Cholesterol, Calc 88 HDL Cholesterol 44 Lipase TSH < 0.015 L Urine Color Urine Appearance Urine pH Normal Ur Specific [place] Urine Protein Urine Glucose (UA) Urine Ketones Urine Occult Blood Urine Nitrate Urine Bilirubin Urine Urobilinogen Ur Leukocyte Esterase Urine RBC Urine WBC Ur Squamous Epith Cells Urine Bacteria Ur Culture Indicated? Vol Urine Centrifuged U Opiates 300ng/mL cut Ur Oxycodone Screen Urine Methadone Screen Ur Barbiturates Screen U Tricyclic Antidepress Ur Phencyclidine Scrn Ur Amphetamines Screen U Methamphetamines Scrn Ur MDMA Scrn (Ecstasy) U Benzodiazepines Scrn Urine Cocaine Screen U Marijuana (THC) Screen Urine Specific [place] Normal Ethyl Alcohol Ur Creatinine Normal SARS-CoV-2 (PCR) Influenza A (RT-PCR) Influenza B (RT-PCR) RSV (PCR) PFSH Medical History (Updated 11/30/23 @ 23:50 by Abel Seals MD) Restless legs Irritable bowel Headache Social History household members: spouse Smoking Status: Current some day smoker Assessment & Plan Assessment & Plan narrative: Headache - likely related to uncontrolled HTN - w/o Hx of migraines - DD complicated migraine - BP control, prn Tylenol, Fioricet, Hydrocodone - Brain MRI shows no sinusitis, stroke or bleed - Resume Glaucoma eye drops Rt facial numbness, Rt arm numbness, Rt leg heaviness - possible TIA - CTH and CTA non-revealing. NIH 1. - telemetry monitoring, ASA, pending echocardiogram, lipids, A1C, TSH - MRI negative HTN - uncontrolled - likely HTN urgency with above symptoms - she does check BP at home periodically and last few days it was running high - home Norvasc increased from 5 to 10 mg daily - prn hydralazine - BP normalized on 11/30 but headache continues RLS - pramipexole IBS - prn Bentyl Glaucoma - abstaining from her eye drop prescriptions for the last 2-3 days - Resume treatment, possibly contributing to headaches/halo vision DVT prophylaxis - SCDs Time-Based Coding :: [TOTAL MINUTES] spent with patient and on the chart (including review of chart, obtaining history, exam, reviewing outside data, placing orders, documenting exam and treatment plan, and counseling patient) on [DATE].
--- NOTE | 2023-12-01 08:10 | DI.MRI.S_ITS ---
PROCEDURE: MR HEAD/BRAIN WO CON INDICATIONS: TIA TECHNIQUE: Non-contrast axial T1 spin echo, axial T2 fast spin echo, sagittal and axial FLAIR, coronal T2 fast spin echo, axial gradient echo, axial diffusion and ADC through the brain. COMPARISON: None. FINDINGS: Image quality: Excellent. CSF spaces: Ventricles appear symmetric in size and shape. Basal cisterns are patent. No extra-axial fluid collections. Brain: No intracranial bleeds or mass effects. There is cerebral volume loss for age. There are mild periventricular and deep white matter chronic small vessel ischemic changes. Brainstem appears normal. Diffusion-weighted images show no acute infarct. No chronic ischemic insults. Normal intravascular flow voids are present. Skull and face: Calvarial bone marrow is normal in signal. Orbits are normal. Sinuses: Sinuses and mastoids are clear. IMPRESSION: No acute or subacute infarct. No acute intracranial abnormalities. Mild age-related global volume loss and chronic microvascular ischemic changes. Dictated by: Kevin Rouse M.D. on 12/01/2023 at 10:23 Approved by: Kevin Rouse M.D. on 12/01/2023 at 10:25
[2023-12-01] MEDS: AMLODIPINE 5 MG TABLET 10 MG PO (09:27)
[2023-12-01] MEDS: LORazepam 2 MG/ML INJ 1 MG IV ×2 (09:27→09:47)
[2023-12-01] MEDS: TIZANIDINE 4 MG TABLET PO ×2 (09:27→20:00)
[2023-12-01 10:12] LABS: Hemoglobin A1C% w Est Avg Glu 5.5 % (4.0-6.0)
[2023-12-01 13:23] VITALS: BP 135/85; PULSE 81; RESP 19; TEMP 36.1; O2SAT 96
--- NOTE | 2023-12-01 15:06 | CM.DANOTE ---
Initial DCP Assessment Note Pt is a 58 yo female, resident of [place], arrives with stroke sx, admitted for further work up. TIA suspected, MRI neg for stroke. PCP: Enrike Carvajal Payer: [facility] Reviewed chart, pt discussed in multidisciplinary rounds this morning. Dr Sanchez anticipates patient will discharge home once BP is better controlled. Met w/patient to introduce self and role. Patient reports living independently with spouse, plans to return home with spouse to transport upon discharge. No barriers identified at this time to patient's safe discharge home w/family to assist; close outpatient f/u recommended. CM team will plan to follow clinical course closely in case any DC needs or concerns arise. MIHIR Maddox Discharge Planning/Care Management CM Discharge Assessment Start: 12/01/23 15:05 Freq: Status: Active Protocol: Document 12/01/23 15:05 JAZZY (Rec: 12/01/23 15:06 JAZZY [id number]) Discharge Planning Assessment Assigned Information Services Consultant MIHIR Lawler DPOA/Assigned Designee Name Santo Abdullahi, spouse Contact Information [phone] Advance Directives? No History Provided By Patient,Medical Record Prior Living Arrangements House Household Members spouse Type of transporation used prior to Drives own vehicle admit Independent with ADL's Yes Is patient alert and oriented? Yes Barriers to Discharge No Discharge Plan Home Transportation Arrangement Spouse Referrals Initiated None needed
[2023-12-01] MEDS: LEVOTHYROXINE 75 MCG TABLET 150 MCG PO (15:16)
[2023-12-01] MEDS: ALPRAZolam 0.25 MG TABLET PO (18:14)
[2023-12-01 18:56] VITALS: BP 160/97; PULSE 95; RESP 20; O2SAT 98
[2023-12-01 19:43] VITALS: BP 141/86; PULSE 95; RESP 18; TEMP 36.9; O2SAT 95
[2023-12-01] MEDS: PRAMIPEXOLE 0.25 MG TABLET 1 MG PO (20:00)
[2023-12-02 00:23] VITALS: BP 109/63; PULSE 88; RESP 18; TEMP 36.2; O2SAT 97
[2023-12-02] MEDS: HYDROMORPHONE 0.5 MG INJ IV ×3 (01:39→12:38)
[2023-12-02 05:47] VITALS: BP 145/99; PULSE 88; RESP 18; TEMP 36.8; O2SAT 99
[2023-12-02] MEDS: LORazepam 2 MG/ML INJ 0.5 MG IV (05:50)
[2023-12-02] MEDS: LEVOTHYROXINE 75 MCG TABLET 150 MCG PO (05:57)
--- NOTE | 2023-12-02 06:36 | PC.NURSE ---
at the beginning of the shift @ 1930, pt expressed her desire to only receive iv pain medication and did not want to receive or try any oral pain meds. pt states that the oral pain meds do not work for her and only the iv pain medication helps with her 9/10 headache. according to day shift RN this has been an ongoing issue. pt has been educated about both oral and iv medications and how each medication is processed through the body. pt is still persistent on only receiving iv medication and refused to take any oral pain medication. pt states that she does not feel like the providers are giving her the proper care she needs and are neglecting her because she has not received IV pain meds during day shift and feels as though the providers do not care. this RN talked to the charge nurse and notifed the MD about this situation and IV dilaudid 0.5 mg PRN was ordered.
[2023-12-02 08:00] VITALS: BP 133/82; PULSE 86; RESP 18; TEMP 36; O2SAT 99
[2023-12-02] MEDS: HYDROMORPHONE 2 MG TABLET PO (08:31)
[2023-12-02] MEDS: AMLODIPINE 5 MG TABLET 10 MG PO (08:31)
[2023-12-02 09:08] LABS: Add Manual Diff / Slide Review NO; Basophils Absolute Auto 0 /uL (0-100); Basophils Percent Auto 0.7 % (0-2); Eosinophils Absolute Auto 200 /uL (0-450); Eosinophils Percent Auto 2.7 % (2-4); Hematocrit 38.4 % (36-46); Hemoglobin 12.9 g/dL (12.0-16.0); Lymphocytes Absolute Auto 2100 /uL (1100-4500); Lymphocytes Percent Auto 32.4 % (25-40); Mean Corpuscular HGB Conc 33.6 % (30-36); Mean Corpuscular Volume 86.3 fL (80-100); Monocytes Absolute Auto 400 /uL (0-900); Neutrophils Absolute Auto 3800 /uL (1500-7000); Neutrophils Percent Auto 58.2 % (50-75); Platelet Count 202 X10^3/uL (150-400); Red Blood Cell Count 4.45 X10^6/uL (4.0-5.2); Red Cell Distribution Width 13.6 % (11.6-14.8); White Blood Cell Count 6.6 X10^3/uL (4.5-11.0)
[2023-12-02 09:17] LABS: Alanine Aminotransferase 52 IU/L (<35); Albumin 3.9 g/dL (3.5-5.0); Albumin Globulin Ratio 1.3 (1.0-2.8); Alkaline Phosphatase 97 U/L (38-126); Aspartate Aminotransferase 36 IU/L (14-36); BUN Creatinine Ratio 16.5 (6-22); Bilirubin Total 0.4 mg/dL (0.2-1.3); Blood Urea Nitrogen 13 mg/dL (7-17); Calcium 9.2 mg/dL (8.4-10.2); Carbon Dioxide 25 mmol/L (22-32); Chloride 104 mmol/L (98-107); Estimated Glomerular Filt Rate > 60 mL/min (>60); Globulin 3.1 g/dL (1.7-4.1); Glucose 120 mg/dL (70-100); HEMOLYSIS < 15 (0-50); Potassium 4.1 mmol/L (3.4-5.1); Sodium 138 mmol/L (137-145)
[2023-12-02 09:39] LABS: Free T4, Direct Thyroxine 1.58 ng/dL (0.78-2.19)
[2023-12-02 12:00] VITALS: BP 172/98; PULSE 97; RESP 15; TEMP 36.7; O2SAT 98
[2023-12-02 12:30] VITALS: BP 151/84; PULSE 91; O2SAT 99
--- NOTE | 2023-12-02 12:35 | PC.NURSE ---
pt reported experiencing shortness of breath, chest pain, headache
--- NOTE | 2023-12-02 12:49 | EKG_ITS ---
[facility] [address], [place] [address] Test Date: 2023-12-02 Pat Name: Samra Abdullahi Department: [facility] Room: 216 Gender: Female Revenue Liaison: JANELL : 1965 Requested By: Order Number: [id number] Reading MD: Александр Hdz MD Measurements Intervals [place] Rate: 90 P: 46 [place]: 150 QRS: 71 QRSD: 88 T: 38 QT: 384 QTc: 469 Interpretive Statements Normal sinus rhythm Electronically Signed On 12-02-2023 14:59:02 PDT by Александр Hdz MD
--- NOTE | 2023-12-02 14:07 | P.DS_ITS ---
History of Present Illness History of Present Illness Date Patient Seen: 12/02/23 Time Patient Seen: 14:07 Chief complaint: headache,weakness, hx tia Narrative: 58 y/o came to the ED complaining on severe headache and then on Rt facial and Rt arm numbness. To me she mentioned Rt leg heaviness as well. All of these started to happen 2-3 days ago. She reported history of TIAs and last episode was 2 years ago, similar but not so intense to current one. It also involved facial numbness. CTH and CTA not diagnostic. NIH 1 on admission. For all the time in the ED hypertensive, initially with SBP > 200. Placed in observation on telemetry with diagnosis of uncontrolled HTN, headache and suspected TIA. Discharge Providers Provider Date of admission: 11/30/23 19:33 Discharge Date: 12/02/23 Primary care physician: Enrike Carvajal PA-C Discharge provider: Kvng Velazquez DO Summary Hospital Course Discharge Diagnosis: 1. reported transient R numbness, not CVA, possible conversion or complex migraine. 2. HTN 3. Anxiety and depression 4. Chronic hypothyroidism 5. Chronic abdominal pain. 6. Polypharmacy. Hospital Course: This is a 58 year old female with PMH of HTN, chronic abdominal pain and nausea/vomiting, reported prior ? CVA vs TIA with no residual deficits, frequent ER visits (noted via review of outside records to have 18 ER visits from may 2022 to may 2023). She presented initially with a primary complaint of headache for 3 days along with intermittently high blood pressures and nausea. According to ER nursing triage documentation, she started complaining of right sided weakness and numbness while getting her IV placed. Per ER provider note, NIH was 1 for R sided numbness reported. She was admitted according to ER documentation for further evaluation to rule out TIA or CVA, in the setting of likely migraine or possibly hypertensive urgency/emergency. For this, she had an unremarkable imaging evaluation including head CT without contrast, CTA head and neck, and brain MRI without any evidence of an acute infarct. Further, in review of prior admission for possible stroke to [facility] Neurology service in 05/2022, she was found NOT likely to have had a stroke and differentials favored complex migraine or conversion according to the discharge summary and was notably not discharged on aspirin or statin medications at that time. I also reviewed her previous MRI results from prior admission all of which have been negative for any acute infarcts or thrombi (MRV 05/2022). Over the course of her stay, her blood pressures were quite varied, likely responsive to anxiety, stress, and pain. Her lowest blood pressure of note was after a dose of IV ativan was given for reported difficulty / claustrophobia for MRI imaging. It was also okay overnight and worse during the day. After negative evaluation for above possible stroke or TIA, she complained of ongoing headaches, nausea, then a panic attack causing chest pain. EKG was unremarkable and HEART score was deemed low risk. She had called to [facility] around 11/26/2023 complaining of chest pain, and troponin was negative with ER evaluation. She has followed with cardiology in the past with a negative evaluation and there is documentation from [facility] cardiology records of a negative stress test in 12/2022 per a phone triage note, though patient has no showed to her last few appointments. With regards to her nausea and abdominal pain. She was noted by staff to have tolerated all of her breakfast on the day of discharge. She also takes Ozempic which is possibly causing some of her recurring symptoms and she had been advised to stop this by multiple providers in review of outside records. She reported not being able to tolerate oral medications for her anxiety given that she had taken a lot of NSAIDs recently. She had no evidence of bleeding with no bowel movements and no hematemesis or coffee ground emesis. Her h/h was stable around 13, consistent with prior available lab values. I recommended a trial of PPI but patient did not feel that she would tolerate the pill. She was not prescribed IV benzodiazepines on the day of discharge, she was offered to resume her home clonazepam which the patient did not feel was adequate care. The patient was tearful during my encounter. I attempted to provide reassurance that her evaluation had been negative with regards to CVA, and that she was tolerating a diet with no evidence of bleeding with stable h/h and there was no life threatening conditions. She was not satisfied with her care, stating that she was going to file a report. She was discharged home at that time. She was able to dress, pack her belongings, and ambulate unassisted on discharge. I recommend continued follow up outpatient with pain management, primary care, cardiology, and GI. Other possible issues to address include that the patient reported prior thyroid ablation which may explain her low TSH, and normal free t4 so no dosing adjustments were recommended on discharge. Given labile blood pressures over the course of her stay noted above, no changes to her usual home medications are recommended. Time Spent with Patient Time spent: Greater than 30 minutes Exam Vital Signs (past 8 hours): - 12/02/23 08:00 12/02/23 12:00 12/02/23 12:30 Temperature 96.8 F L 98.1 F Pulse Rate 86 97 H 91 H Respiratory Rate 18 15 Blood Pressure 133/82 172/98 H 151/84 H Pulse Oximetry 99 98 99 Oxygen Flow Rate 0 0 0 Oxygen Delivery Method Room Air Oxygen Flow Rate 0 Narrative Exam Narrative: Gen: awake, alert, tearful and anxious, sitting in bed. CV: RRR Ext: No edema, no tremor noted, no rash visible. Objective Labs 12/02/23 09:00 12/02/23 09:00 Labs: Laboratory Results - last 24 hr 12/02/23 09:00 WBC 6.6 RBC 4.45 Hgb 12.9 Hct 38.4 MCV 86.3 MCH 29.0 MCHC 33.6 RDW 13.6 Plt Count 202 Neut % (Auto) 58.2 Lymph % (Auto) 32.4 Patrick % (Auto) 6.0 Eos % (Auto) 2.7 Baso % (Auto) 0.7 Neut # (Auto) 3800 Lymph # (Auto) 2100 Patrick # (Auto) 400 Eos # (Auto) 200 Baso # (Auto) 0 Sodium 138 Potassium 4.1 Chloride 104 Carbon Dioxide 25 BUN 13 Creatinine 0.79 Estimated GFR > 60 BUN/Creatinine Ratio 16.5 Glucose 120 H Calcium 9.2 Total Bilirubin 0.4 AST 36 ALT 52 H Alkaline Phosphatase 97 Total Protein 7.0 Albumin 3.9 Globulin 3.1 Albumin/Globulin Ratio 1.3 Free T4 1.58 [facility] History (Updated 11/30/23 @ 23:50 by Abel Seals MD) Restless legs Irritable bowel Headache Social History household members: spouse Smoking Status: Current some day smoker Discharge Plan Discharge Plan Patient Disposition: Home Provider Discharge Comment: You were admitted to the hospital with possible TIA, and headache. After evaluation you were found to not have life threatening symptoms. Recommend ongoing follow up with your primary care provider and GI provider should your stomach continue to bother you. Discharge orders & Medications Prescriptions: Continued lidocaine 5 % adhesive patch,medicated 1 patch topical DAILY PRN (Reason: pain ) Qty: 15 0RF Rx Instructions: leave on most painful area for up to 12 hrs hydrocodone-acetaminophen 5-325 mg tablet 1 tab PO Q6H PRN (Reason: pain) Qty: 14 0RF ondansetron 4 mg tablet,disintegrating 4 mg PO Q8H PRN (Reason: nausea and vomiting) Qty: 10 0RF amlodipine 5 mg tablet 5 mg PO DAILY Qty: 30 0RF hydrocodone-acetaminophen 5-325 mg tablet 1 tab PO Q6H PRN (Reason: pain) tizanidine 4 mg tablet 4 mg PO BID pramipexole 0.25 mg tablet 1 mg PO ONCE PM levothyroxine 200 mcg tablet 200 mcg PO DAILY Follow up/Referrals: Enrike Carvajal PA-C [Primary Care Provider] - 1 Week Diet/Activity/Treatments Diet: Diet as Tolerated, Regular and Carb-consistent/Diabetic Diet comment: No restrictions, continue carb controlled. Activity: As tolerated, no restrictions Visit Report/Discharge Packet Stand Alone Forms: Patient Portal/API, Stroke Signs & Symptoms Discharge Data Primary Care Provider: Enrike Carvajal Attending Provider: Abel Fung Admit Date/Time: 11/30/23 19:33
--- NOTE | 2023-12-02 14:34 | PC.NURSE ---
Discharge Note Patient A&O, VSS, RA. Patient agreeable to discharge plan. PIV/TELE discontinued. Patient able to dress self and pack all belongings. Patient walked out accompanied by to POV.
== END 2023-12-02 14:30 | disposition home or self-care (01) ==
LOC: ED 19:31 → AC 19:34
PROVIDERS: Internal Medicine; Admitting Provider Internal Medicine; Emergency Provider Student in an Organized Health Care Education/Training Program; PCP Student in an Organized Health Care Education/Training Program; Visit Provider Internal Medicine
DX: I10 Essential (primary) hypertension (principal); K58.9 Irritable bowel syndrome, unspecified; G25.81 Restless legs syndrome; R51.9 Headache, unspecified; R29.701 NIHSS score 1; Z86.73 Personal history of transient ischemic attack (TIA), and cerebral infarction without residual deficits; E11.9 Type 2 diabetes mellitus without complications; Z79.85 Long-term (current) use of injectable non-insulin antidiabetic drugs; R20.0 Anesthesia of skin; E03.9 Hypothyroidism, unspecified; Z11.52 Encounter for screening for COVID-19
CPT/HCPCS: 0241U; 36415; 70450; 70496; 70498; 70551; 71045; 80053; 80061; 80305; 80320; 81001; 82550; 83036; 83690; 83735; 83880; 84439; 84443; 84484; 85025; 85610; 85730; 93005; 93010; 96374; 96375; 96376; 99285; G0378; J1170; J1200; J2060; J2270; J2405; J2765; Q9967

== ENCOUNTER 2024-09-25 09:19 | Inpatient (IN) | payer MEDICARE, SELFPAY ==
[2023-11-30 20:49] VITALS: BMI 29.7
[2024-09-25] VITALS (9 sets, daily range): BP systolic 113–195; BP diastolic 62–98; PULSE 77–110; RESP 16–19; TEMP 36.3–36.9; O2SAT 83–100; BMI 32.4
--- NOTE | 2024-09-25 09:38 | DI.CT.S_ITS ---
PROCEDURE: CT LUMBAR SPINE WO CON INDICATIONS: acute pain with acute neruologic symptoms TECHNIQUE: Noncontrast 3 mm thick sections acquired from the T12 level to the sacrum. Sagittal and coronal reformats were constructed. For radiation dose reduction, the following was used: automated exposure control. COMPARISON: None. FINDINGS: Image quality: Excellent. Bones: There is normal bony alignment. No acute vertebral body compression fractures. No suspicious lytic or blastic bony lesions. No pars defects. Right sacroiliac joint hardware. Soft tissues: No retroperitoneal masses or hematomas. Visualized aorta is normal in caliber. Atherosclerotic vascular calcifications. Cholelithiasis. Hepatic steatosis. IMPRESSION: No acute osseous abnormalities. No significant degenerative changes. Approved by: Kevin Rouse M.D. on 09/25/2024 at 10:43
--- NOTE | 2024-09-25 09:38 | DI.CT.S_ITS ---
PROCEDURE: CT PEL WO CON INDICATIONS: acute SI pain TECHNIQUE: Noncontrast 3 mm axial sections acquired through the bony pelvis, with coronal and sagittal reformatting. COMPARISON: None. FINDINGS: Image quality: Excellent. Bones: Right sacroiliac joint hardware. No acute osseous abnormalities are appreciated. Soft tissues: Atherosclerotic vascular calcifications. No significant abnormalities within the visualized pelvis. IMPRESSION: Right sacroiliac joint hardware in place. No acute osseous abnormalities are appreciated. Dictated by: Kevin Rouse M.D. on 09/25/2024 at 10:43 Approved by: Kevin Rouse M.D. on 09/25/2024 at 10:46
[2024-09-25] MEDS: HYDROMORPHONE 1 MG INJ IV ×2 (09:50→10:59)
[2024-09-25 09:53] LABS: Add Manual Diff / Slide Review NO; Basophils Absolute Auto 100 /uL (0-100); Basophils Percent Auto 0.9 % (0-2); Eosinophils Absolute Auto 100 /uL (0-450); Eosinophils Percent Auto 2.1 % (2-4); Hematocrit 39.6 % (36-46); Hemoglobin 13.5 g/dL (12.0-16.0); Lymphocytes Absolute Auto 1700 /uL (1100-4500); Mean Corpuscular Hemoglobin 29.5 PG (26-34); Mean Corpuscular Volume 86.8 fL (80-100); Monocytes Absolute Auto 300 /uL (0-900); Monocytes Percent Auto 4.9 % (3-14); Neutrophils Absolute Auto 4100 /uL (1500-7000); Neutrophils Percent Auto 65.1 % (50-75); Platelet Count 217 X10^3/uL (150-400); Red Blood Cell Count 4.57 X10^6/uL (4.0-5.2); Red Cell Distribution Width 13.3 % (11.6-14.8); White Blood Cell Count 6.3 X10^3/uL (4.5-11.0)
[2024-09-25 10:18] LABS: Alanine Aminotransferase 44 IU/L (<35); Albumin 4.6 g/dL (3.5-5.0); Albumin Globulin Ratio 1.2 (1.0-2.8); Alkaline Phosphatase 136 U/L (38-126); Aspartate Aminotransferase 37 IU/L (14-36); BUN Creatinine Ratio 23.9 (6-22); Bilirubin Total 0.5 mg/dL (0.2-1.3); Blood Urea Nitrogen 16 mg/dL (7-17); Calcium 9.5 mg/dL (8.4-10.2); Carbon Dioxide 23 mmol/L (22-32); Chloride 104 mmol/L (98-107); Estimated Glomerular Filt Rate > 60 mL/min (>60); Globulin 3.7 g/dL (1.7-4.1); Glucose 204 mg/dL (70-99); HEMOLYSIS 16 (0-50); Potassium 4.1 mmol/L (3.4-5.1); Sodium 137 mmol/L (137-145); Total Protein 8.3 g/dL (6.3-8.2)
--- NOTE | 2024-09-25 10:33 | PC.NURSE ---
Pt remains in pain. Dr Shepard notified.
[2024-09-25] MEDS: diazePAM 5 MG TABLET PO (10:58)
--- NOTE | 2024-09-25 11:04 | ED.BACK ---
HPI - Back Pain/Injury General Chief Complaint: Back Pain/Injury Stated Complaint: SI joint Fusion failed. Bilateral leg weakness Time Seen by Provider: 09/25/24 09:20 History of Present Illness HPI Narrative: 58-year-old woman with a history of diabetes, hypothyroidism anxiety chronic back and SI pain with prior L4-5 laminectomy and SI joint surgical intervention, has chronic pain in her low back for which she is seen by pain clinic and has been part of that clinic for at least 10 years if not longer. Current pain regimen includes 15 mg of morphine b.i.d. with 2 Vicodin b.i.d. as needed throughout the day. She does not tolerate nonsteroidals, did not do well with gabapentin or Lyrica. She presents saying that over the last 1-1/2 months she has had waxing and waning pain that has progressively gotten worse and is well beyond her current baseline. Because of her previous laminectomy, she can no longer have MRI studies. She states that this morning she went to get out of bed and had sharp pain with a popping sound in the left SI area and after that had increasing paresthesia in an L1 and L2 distribution. She has never since her laminectomy she has had some difficulty starting her urine but does not note that she has had any worsening in the symptoms today. No perineal paresthesia. She does report that she is having progressive weakness in both legs that has been somewhat noticeable over the last month and a half and since this episode with significant increased pain getting out of bed this morning describes her lower extremities is significantly more weak to the point it is difficult for her to stand up without assistance Related Data Home Medications ?Medication ?Instructions ?Recorded ?Confirmed hydrocodone 5 mg-acetaminophen 325 1 tab PO Q6H PRN pain 11/30/23 09/25/24 mg tablet levothyroxine 200 mcg tablet 200 mcg PO DAILY 11/30/23 09/25/24 pramipexole 0.25 mg tablet 1 mg PO ONCE PM 11/30/23 09/25/24 tizanidine 4 mg tablet 4 mg PO BID 11/30/23 09/25/24 clonazepam 0.5 mg tablet 0.5 mg PO 3XD PRN anxiety 09/25/24 09/25/24 morphine 15 mg tablet,extended 15 mg PO Q8H pain 09/25/24 09/25/24 release semaglutide 2 mg/dose (8 mg/3 mL) 2 mg SUBCUT WEEKLY 09/25/24 09/25/24 subcutaneous pen injector ([employer]) Previous Rx's ?Medication ?Instructions ?Recorded lidocaine 5 % topical patch 1 patch topical DAILY PRN pain 02/01/21 #15 ea hydrocodone 5 mg-acetaminophen 325 1 tab PO Q6H PRN pain #14 tabs 07/28/21 mg tablet ondansetron 4 mg disintegrating 4 mg PO Q8H PRN nausea and 07/28/21 tablet vomiting #10 tabs Allergies Allergy/AdvReac Type Severity Reaction Status Date / Time hydroxychloroquine Allergy Severe Anaphylaxis Verified 09/25/24 09:26 metaxalone (From Skelaxin) Allergy Severe Anaphylaxis Verified 09/25/24 09:26 sertraline Allergy Severe Anaphylaxis Verified 09/25/24 09:26 Sulfa (Sulfonamide Allergy Severe Anaphylaxis Verified 09/25/24 09:26 Antibiotics) tramadol Allergy Severe Anaphylaxis Verified 09/25/24 09:26 bupropion Allergy Verified 09/25/24 09:26 diphenhydramine Allergy Verified 09/25/24 09:26 duloxetine Allergy Verified 09/25/24 09:26 lamotrigine Allergy Verified 09/25/24 09:26 oxycodone Allergy Verified 09/25/24 09:26 promethazine (From Phenergan) Allergy Verified 09/25/24 09:26 benzonatate AdvReac Mild Verified 09/25/24 09:26 amoxicillin AdvReac Verified 09/25/24 09:26 citalopram AdvReac Verified 09/25/24 09:26 Gadolinium-Containing AdvReac Verified 09/25/24 09:26 Contrast Medi haloperidol AdvReac Verified 09/25/24 09:26 ketorolac AdvReac Verified 09/25/24 09:26 metoclopramide (From Reglan) AdvReac Verified 09/25/24 09:26 naproxen AdvReac Verified 09/25/24 09:26 pregabalin AdvReac Verified 09/25/24 09:26 prochlorperazine AdvReac Verified 09/25/24 09:26 quetiapine AdvReac Verified 09/25/24 09:26 spironolactone AdvReac Verified 09/25/24 09:26 Patient History Medical History (Updated 09/25/24 @ 13:36 by Libby Shepard MD) Restless legs Irritable bowel Headache Social History household members: spouse Smoking Status: Never smoker Smoking Status: Never smoker tobacco type: vaping alcohol intake frequency: holidays/special occasions only Exam Initial Vital Signs Initial Vital Signs: Vital Signs Temperature 98.5 F 09/25/24 09:22 Pulse Rate 110 H 09/25/24 09:22 Respiratory Rate 16 09/25/24 09:22 Blood Pressure 195/98 H 09/25/24 09:22 Pulse Oximetry 98 09/25/24 09:22 Oxygen Delivery Method Room Air 09/25/24 09:22 Course Orders Ordered: ED Orders 09/25/24 09:38 CT lumbar spine wo con Stat CT pelvis wo con Stat 09/25/24 09:45 Complete Blood Count AUTO DIFF Stat Comprehensive Metabolic Panel Stat 09/25/24 12:05 Urine Microscopic Stat Discontinued Medications Diazepam (Diazepam 5 Mg Tablet) 5 mg PO NOW ONE Stop: 09/25/24 10:52 Last Admin: 09/25/24 10:58 Dose: 5 mg Documented By: Hydromorphone HCl (Hydromorphone 1 Mg Inj) 1 mg IV NOW ONE Stop: 09/25/24 09:39 Last Admin: 09/25/24 09:50 Dose: 1 mg Documented By: Hydromorphone HCl (Hydromorphone 1 Mg Inj) 1 mg IV NOW ONE Stop: 09/25/24 10:52 Last Admin: 09/25/24 10:59 Dose: 1 mg Documented By: Vital Signs Vital signs: Vital Signs - 8 hr 09/25/24 09:22 09/25/24 09:31 09/25/24 10:02 Temperature 98.5 F Pulse Rate 110 H 106 H 94 H Respiratory Rate 16 Blood Pressure 195/98 H Pulse Oximetry 98 97 83 L Oxygen Delivery Method Room Air 09/25/24 10:04 09/25/24 10:04 09/25/24 10:30 Temperature Pulse Rate 99 H Respiratory Rate 19 Blood Pressure 154/68 H 136/62 Pulse Oximetry 97 Oxygen Delivery Method Room Air 09/25/24 10:30 09/25/24 11:00 09/25/24 11:00 Temperature Pulse Rate 91 H 93 H Respiratory Rate Blood Pressure 147/70 H Pulse Oximetry 94 98 Oxygen Delivery Method 09/25/24 11:30 09/25/24 11:30 Temperature Pulse Rate 86 Respiratory Rate Blood Pressure 155/71 H Pulse Oximetry 98 Oxygen Delivery Method MDM - Back Pain/Injury Lab Data 09/25/24 09:45 09/25/24 09:45 Labs: Lab Results 09/25/24 09/25/24 Range/Units 09:45 12:05 WBC 6.3 (4.5-11.0) X10^3/uL RBC 4.57 (4.0-5.2) X10^6/uL Hgb 13.5 (12.0-16.0) g/dL Hct 39.6 (36-46) % MCV 86.8 (80-100) fL MCH 29.5 (26-34) PG MCHC 34.0 (30-36) % RDW 13.3 (11.6-14.8) % Plt Count 217 (150-400) X10^3/uL Neut % (Auto) 65.1 (50-75) % Lymph % (Auto) 27.0 (25-40) % Slope % (Auto) 4.9 (3-14) % Eos % (Auto) 2.1 (2-4) % Baso % (Auto) 0.9 (0-2) % Neut # (Auto) 4100 (7910-8936) /uL Lymph # (Auto) 1700 (5084-8036) /uL Slope # (Auto) 300 (0-900) /uL Eos # (Auto) 100 (0-450) /uL Baso # (Auto) 100 (0-100) /uL Sodium 137 (137-145) mmol/L Potassium 4.1 (3.4-5.1) mmol/L Chloride 104 (98-107) mmol/L Carbon Dioxide 23 (22-32) mmol/L BUN 16 (7-17) mg/dL Creatinine 0.67 (0.52-1.04) mg/dL Estimated GFR > 60 (>60) mL/min BUN/Creatinine Ratio 23.9 H (6-22) Glucose 204 H (70-99) mg/dL Calcium 9.5 (8.4-10.2) mg/dL Total Bilirubin 0.5 (0.2-1.3) mg/dL AST 37 H (14-36) IU/L ALT 44 H (<35) IU/L Alkaline Phosphatase 136 H (38-126) U/L Total Protein 8.3 H (6.3-8.2) g/dL Albumin 4.6 (3.5-5.0) g/dL Globulin 3.7 (1.7-4.1) g/dL Albumin/Globulin Ratio 1.2 (1.0-2.8) Urine RBC None seen (0-5/HPF) Urine WBC 0-1/hpf (0-5/HPF) Ur Squamous Epith Cells 0-1 /hpf (0-5/HPF) Urine Bacteria None seen (None) Ur Culture Indicated? Cult not indicated Vol Urine Centrifuged 10ml (spun) Imaging Data CT scan of the pelvis: Radiologist's Impression: PROCEDURE: CT PEL WO CON INDICATIONS: acute SI pain TECHNIQUE: Noncontrast 3 mm axial sections acquired through the bony pelvis, with coronal and sagittal reformatting. COMPARISON: None. FINDINGS: Image quality: Excellent. Bones: Right sacroiliac joint hardware. No acute osseous abnormalities are appreciated. Soft tissues: Atherosclerotic vascular calcifications. No significant abnormalities within the visualized pelvis. IMPRESSION: Right sacroiliac joint hardware in place. No acute osseous abnormalities are appreciated. Dictated by: Kevin Rouse M.D. on 09/25/2024 at 10:43 CT lumbar spine: Radiologist's Impression: ROCEDURE: CT LUMBAR SPINE WO CON INDICATIONS: acute pain with acute neruologic symptoms TECHNIQUE: Noncontrast 3 mm thick sections acquired from the T12 level to the sacrum. Sagittal and coronal reformats were constructed. For radiation dose reduction, the following was used: automated exposure control. COMPARISON: None. FINDINGS: Image quality: Excellent. Bones: There is normal bony alignment. No acute vertebral body compression fractures. No suspicious lytic or blastic bony lesions. No pars defects. Right sacroiliac joint hardware. Soft tissues: No retroperitoneal masses or hematomas. Visualized aorta is normal in caliber. Atherosclerotic vascular calcifications. Cholelithiasis. Hepatic steatosis. IMPRESSION: No acute osseous abnormalities. No significant degenerative changes. Approved by: Kevin Rouse M.D. on 09/25/2024 at 10:43 MDM Narrative Medical decision making narrative: CC: Acute exacerbation chronic back pain Complicating co-morbidities: Chronic back pain, has been seen by chronic pain in back specialist for over 20 years, prior L5 laminectomy and SI fusion Data collected from: patient Social determinants of health that may influence the patients condition: Medical records reviewed: ER visits and hospitalizations reviewed, most recently hospitalized for a headache and December of 2023, none of these records are directly related to her chronic low back pain Differential considered: Exacerbation of acute back pain, acute pathology whether bony abnormality disc abnormality, doubt infection or epidural blood clot affecting the L1-L2 reason Exam documented above, pertinent findings include: Patient is in obvious pain but able to cooperate completely. She describes tenderness across the entire lumbar area nothing localizing. She describes paresthesia in the L1-2 region bilaterally that can be reproduced, decreased sensation to fine touch. There was no perineal anesthesia. Bilateral lower extremity weakness with 2+ reflexes at patella is and ankle Lab Test results independently reviewed as above. Pertinent findings: Chemistries are notable for minimally elevated AST, ALT, alk-phos electrolytes and renal function are appropriate CBC is unremarkable Imaging studies independently reviewed: Due to the SI fusion hardware, patient apparently can not have an MRI. CT scan of the pelvis and lumbar area ordered. Consultations: Patient stated she had tried to contact her spine surgeon, Dr. Ramirez and received a return phone call from a physician who told her she was able to return calls on his cell phone number if she had questions. She did not catch his name. At phone number is [phone]. I did try calling, message was left on voicemail Sr Ramirez is part of the [facility] spine surgery [facility], clinic phone number is [phone]. Placed a phone call with message left on voicemail to speak with him or on-call covering partner 1230: Dr Suh from [place] [facility] returns my call. We briefly reviewed her overall care, presentation in pain. Discussed the CT scans that were done today his recommendation was continued pain control and if this appears to be intractable pain admission for pain control with physical therapy maybe appropriate. At this point she is neurologically safe, there is no indication for acute transfer or neurosurgical/spinal intervention. Treatments: Total of 2 mg of IV Dilaudid, p.o. diazepam Discussion: 58-year-old woman with complaints of a week and a half of worsening low back pain and lower extremity weakness, when getting out of bed this morning had some type of acute event with a snap and a pop sound now with paresthesia bilaterally L1-2 distribution with bilateral lower extremity weakness, describes legs feeling like they are ?spaghetti noodles? and are not able to hold her up. No change to bowel or bladder habits, no perineal anesthesia. She does have decreased sensation bilaterally in the L1-2 distribution, lower extremity strength is rated 4/5 bilaterally and she does have difficulty standing completely that she states is due to weakness rather than just pain. Pain is significantly increased in has been better controlled once her anxiety was also addressed. She is not showing signs of acute cauda equina syndrome however I a.m. concerned with the acute increasing pain this morning increasing paresthesia and increasing bilateral lower extremity weakness. Will continue to try and speak with 1 of the spine surgeons in the group where her previous surgeries have been done in her spine care is delivered. Patient is updated on findings and I have explained that I am going to try and speak with 1 of the surgeons, she understands reason for waiting and delays this time. Discharge Plan Departure Patient Disposition: Admitted as Observation Clinical Impression: Intractable back pain
[2024-09-25 12:39] LABS: Bacteria Urine None Seen; Culture Indicated Urine Cult Not Indicated; RBC Urine None Seen (0-5/HPF); Squamous Epithelial Cell Urine 0-1 /HPF (0-5/HPF); Urine Volume 10mL (spun); WBC Urine 0-1/HPF (0-5/HPF)
--- NOTE | 2024-09-25 13:01 | PC.NURSE ---
Pt continues to remain painful. MD in room discussing options with pt.
--- NOTE | 2024-09-25 14:47 | PM.HP.1 ---
History of Present Illness History of Present Illness Date Patient Seen: 09/25/24 Chief complaint: SI joint Fusion failed. Bilateral leg weakness Narrative: ED Doctor: 58-year-old woman with a history of diabetes, hypothyroidism anxiety chronic back and SI pain with prior L4-5 laminectomy and SI joint surgical intervention, has chronic pain in her low back for which she is seen by pain clinic and has been part of that clinic for at least 10 years if not longer. Current pain regimen includes 15 mg of morphine b.i.d. with 2 Vicodin b.i.d. as needed throughout the day. She does not tolerate nonsteroidals, did not do well with gabapentin or Lyrica. She presents saying that over the last 1-1/2 months she has had waxing and waning pain that has progressively gotten worse and is well beyond her current baseline. Because of her previous laminectomy, she can no longer have MRI studies. She states that this morning she went to get out of bed and had sharp pain with a popping sound in the left SI area and after that had increasing paresthesia in an L1 and L2 distribution. She has never since her laminectomy she has had some difficulty starting her urine but does not note that she has had any worsening in the symptoms today. No perineal paresthesia. She does report that she is having progressive weakness in both legs that has been somewhat noticeable over the last month and a half and since this episode with significant increased pain getting out of bed this morning describes her lower extremities is significantly more weak to the point it is difficult for her to stand up without assistance HPI: She recounts her SI fusion from Dr. Quintana in May of this year. She was had severe pain since that time which is not been improving. In fact, in spite of her pain medications has been getting worse and she has been unable to really move or drive. The pain is increased with lying flat on her back or standing up. It was less when she lies on her side. She was some numbness inside both thighs. She was weakness in both upper legs. She denies bowel or bladder dysfunction. She was also followed by Dr. Holger Rangel and Dr. Suh, to spine physicians. Imaging was reviewed with Dr. Suh by the ED physician today. He recommended pain medicine and no surgical intervention. His number is [phone]. [facility] Medical History Restless legs Irritable bowel Headache Social History household members: spouse Smoking Status: Former smoker alcohol intake: current Meds Home Medications and Allergies Home Medications ?Medication ?Instructions ?Recorded ?Confirmed ?Type lidocaine 5 % topical patch 1 patch topical DAILY PRN pain 02/01/21 09/25/24 Rx #15 ea hydrocodone 5 mg-acetaminophen 325 1 tab PO Q6H PRN pain #14 tabs 07/28/21 09/25/24 Rx mg tablet ondansetron 4 mg disintegrating 4 mg PO Q8H PRN nausea and 07/28/21 09/25/24 Rx tablet vomiting #10 tabs hydrocodone 5 mg-acetaminophen 325 1 tab PO Q6H PRN pain 11/30/23 09/25/24 History mg tablet levothyroxine 200 mcg tablet 200 mcg PO DAILY 11/30/23 09/25/24 History pramipexole 0.25 mg tablet 1 mg PO ONCE PM 11/30/23 09/25/24 History tizanidine 4 mg tablet 4 mg PO BID 11/30/23 09/25/24 History clonazepam 0.5 mg tablet 0.5 mg PO 3XD PRN anxiety 09/25/24 09/25/24 History morphine 15 mg tablet,extended 15 mg PO Q8H pain 09/25/24 09/25/24 History release semaglutide 2 mg/dose (8 mg/3 mL) 2 mg SUBCUT WEEKLY 09/25/24 09/25/24 History subcutaneous pen injector (Ozempic) Allergies Allergy/AdvReac Type Severity Reaction Status Date / Time hydroxychloroquine Allergy Severe Anaphylaxis Verified 09/25/24 09:26 metaxalone (From Skelaxin) Allergy Severe Anaphylaxis Verified 09/25/24 09:26 sertraline Allergy Severe Anaphylaxis Verified 09/25/24 09:26 Sulfa (Sulfonamide Allergy Severe Anaphylaxis Verified 09/25/24 09:26 Antibiotics) tramadol Allergy Severe Anaphylaxis Verified 09/25/24 09:26 bupropion Allergy Verified 09/25/24 09:26 diphenhydramine Allergy Verified 09/25/24 09:26 duloxetine Allergy Verified 09/25/24 09:26 lamotrigine Allergy Verified 09/25/24 09:26 oxycodone Allergy Verified 09/25/24 09:26 promethazine (From Phenergan) Allergy Verified 09/25/24 09:26 benzonatate AdvReac Mild Verified 09/25/24 09:26 amoxicillin AdvReac Verified 09/25/24 09:26 citalopram AdvReac Verified 09/25/24 09:26 Gadolinium-Containing AdvReac Verified 09/25/24 09:26 Contrast Medi haloperidol AdvReac Verified 09/25/24 09:26 ketorolac AdvReac Verified 09/25/24 09:26 metoclopramide (From Reglan) AdvReac Verified 09/25/24 09:26 naproxen AdvReac Verified 09/25/24 09:26 pregabalin AdvReac Verified 09/25/24 09:26 prochlorperazine AdvReac Verified 09/25/24 09:26 quetiapine AdvReac Verified 09/25/24 09:26 spironolactone AdvReac Verified 09/25/24 09:26 Review of Systems Review of Systems Narrative: All else reviewed and otherwise unremarkable except as noted in the history and physical. Exam Vital Signs (past 8 hours): - 09/25/24 09:22 09/25/24 09:31 09/25/24 10:02 Temperature 98.5 F Pulse Rate 110 H 106 H 94 H Respiratory Rate 16 Blood Pressure 195/98 H Pulse Oximetry 98 97 83 L Oxygen Delivery Method Room Air 09/25/24 10:04 09/25/24 10:04 09/25/24 10:30 Temperature Pulse Rate 99 H Respiratory Rate 19 Blood Pressure 154/68 H 136/62 Pulse Oximetry 97 Oxygen Delivery Method Room Air 09/25/24 10:30 09/25/24 11:00 09/25/24 11:00 Temperature Pulse Rate 91 H 93 H Respiratory Rate Blood Pressure 147/70 H Pulse Oximetry 94 98 Oxygen Delivery Method 09/25/24 11:30 09/25/24 11:30 Temperature Pulse Rate 86 Respiratory Rate Blood Pressure 155/71 H Pulse Oximetry 98 Oxygen Delivery Method Oxygen Delivery Method Room Air Narrative Exam Narrative: NAD, alert and oriented, fluent speech, calm. Normocephalic skull, EOMI, anicteric sclera, symmetric pupils. Oropharynx unremarkable, no droop. Neck supple, midline trachea, no adenopathy. Lungs clear, normal rate and effort. Heart regular, no murmur gallop or rub. Abdomen is soft, non distended and non tender. Extremities are free of edema. Skin is free of rash or lesions. Joints are not swollen or deformed. Judgment appears to be normal. Objective Imaging Multiple studies:: Radiologist's impression: Pelvis CT: Right sacroiliac joint hardware in place. No acute osseous abnormalities are appreciated. Lumbar spine CT: No acute osseous abnormalities. No significant degenerative changes. Labs 09/25/24 09:45 09/25/24 09:45 Labs: Laboratory Results - last 24 hr 09/25/24 09/25/24 09:45 12:05 WBC 6.3 RBC 4.57 Hgb 13.5 Hct 39.6 MCV 86.8 MCH 29.5 MCHC 34.0 RDW 13.3 Plt Count 217 Neut % (Auto) 65.1 Lymph % (Auto) 27.0 [place] % (Auto) 4.9 Eos % (Auto) 2.1 Baso % (Auto) 0.9 Neut # (Auto) 4100 Lymph # (Auto) 1700 [place] # (Auto) 300 Eos # (Auto) 100 Baso # (Auto) 100 Sodium 137 Potassium 4.1 Chloride 104 Carbon Dioxide 23 BUN 16 Creatinine 0.67 Estimated GFR > 60 BUN/Creatinine Ratio 23.9 H Glucose 204 H Calcium 9.5 Total Bilirubin 0.5 AST 37 H ALT 44 H Alkaline Phosphatase 136 H Total Protein 8.3 H Albumin 4.6 Globulin 3.7 Albumin/Globulin Ratio 1.2 Urine RBC None seen Urine WBC 0-1/hpf Ur Squamous Epith Cells 0-1 /hpf Urine Bacteria None seen Ur Culture Indicated? Cult not indicated Vol Urine Centrifuged 10ml (spun) Assessment & Plan Assessment & Plan narrative: 1. Acute on chronic LBP, present on admission and active. 2. DM, stable. 3. Hypothyroidism, stable. PLAN: -continue chronic pain medications without change in and IV Dilaudid overnight for pain control. -sliding scale insulin and monitor blood sugars. Anticipate 1 night and Hospital, supports observation status. Full code. Time-Based Coding :: 35 min spent with patient and on the chart (including review of chart, obtaining history, exam, reviewing outside data, placing orders, documenting exam and treatment plan, and counseling patient) on 09/25. Quality VTE Deep Vein Thrombosis/Pulmonary Embolism Present on Admission: No MIPS - Admit I confirm the patient?s Advance Care Plan is present, Code status is documented, Surrogate decision maker is in patient?s record [If Yes, STOP here]: Yes MIPS - Meds 'Current medications' to include all prescriptions, loaf-ymo-gcylcka products, herbals, cannabis/cannabidiol products, and vitamin/mineral/dietary (nutritional) supplements. I have utilized all available resources to obtain, update, or review the patient?s current medications. [If Yes, STOP here]: Yes
[2024-09-25] MEDS: HYDROMORPHONE 0.5 MG INJ IV ×3 (14:51→20:55)
[2024-09-25] MEDS: TIZANIDINE 4 MG TABLET PO (14:58)
[2024-09-25] MEDS: MORPHINE ER 15 MG TABLET PO ×2 (14:58→22:16)
[2024-09-25] MEDS: LIDOCAINE 5% PATCH 1 EACH TOP (14:59)
[2024-09-25] MEDS: ONDANSETRON 4 MG ODT PO ×2 (15:59→22:14)
[2024-09-25] MEDS: PRAMIPEXOLE 0.25 MG TABLET 1 MG PO (16:52)
[2024-09-25] MEDS: HYDROCODONE/ACET 5/325 TABLET 1 TAB PO (16:52)
[2024-09-25 20:39] LABS: POC Glucose 147 mg/dL (70-99)
[2024-09-25] MEDS: HYDROMORPHONE 0.5 MG INJ 1 MG IV (22:16)
[2024-09-26] MEDS: HYDROCODONE/ACET 5/325 TABLET 2 TAB PO (02:17)
[2024-09-26] MEDS: HYDROMORPHONE 0.5 MG INJ 1 MG IV ×6 (02:18→20:40)
[2024-09-26] MEDS: clonazePAM 0.5 MG TABLET PO ×2 (03:43→20:48)
[2024-09-26] MEDS: LEVOTHYROXINE 100 MCG TABLET 200 MCG PO (06:28)
[2024-09-26] MEDS: FAMOTIDINE 20 MG TABLET PO (06:28)
--- NOTE | 2024-09-26 07:46 | PM.PN.1 ---
Subjective Subjective Interval history: S: She was still having significant back pain. She was started on extended release morphine Saturday of last week and has not been taking this consistently. She had been on Vicodin 08/01/2024 for years which was increased to 10 mg tablets that she took 4 times a day up until most recently. She was having poor pain control on those Vicodin which led Dr. Quintana to trial morphine starting last week. Exam Vital Signs (past 8 hours): Oxygen Delivery Method Room Air Oxygen Flow Rate 0 Narrative Exam Narrative: NAD, alert and oriented. Fluent speech. Lungs are clear, normal rate and effort. Heart is regular, no murmur gallop or rub. Abdomen is soft, non distended. Extremities are free of edema. She appears slightly uncomfortable, lying in a left lateral decubitus position with her knees up to her chest. Objective Labs 09/25/24 09:45 09/25/24 09:45 Labs: Laboratory Results - last 24 hr 09/25/24 09/25/24 09/25/24 09:45 12:05 20:30 WBC 6.3 RBC 4.57 Hgb 13.5 Hct 39.6 MCV 86.8 MCH 29.5 MCHC 34.0 RDW 13.3 Plt Count 217 Neut % (Auto) 65.1 Lymph % (Auto) 27.0 [place] % (Auto) 4.9 Eos % (Auto) 2.1 Baso % (Auto) 0.9 Neut # (Auto) 4100 Lymph # (Auto) 1700 [place] # (Auto) 300 Eos # (Auto) 100 Baso # (Auto) 100 Sodium 137 Potassium 4.1 Chloride 104 Carbon Dioxide 23 BUN 16 Creatinine 0.67 Estimated GFR > 60 BUN/Creatinine Ratio 23.9 H Glucose 204 H POC Whole Bld Glucose 147 H Calcium 9.5 Total Bilirubin 0.5 AST 37 H ALT 44 H Alkaline Phosphatase 136 H Total Protein 8.3 H Albumin 4.6 Globulin 3.7 Albumin/Globulin Ratio 1.2 Urine RBC None seen Urine WBC 0-1/hpf Ur Squamous Epith Cells 0-1 /hpf Urine Bacteria None seen Ur Culture Indicated? Cult not indicated Vol Urine Centrifuged 10ml (spun) [facility] Medical History Restless legs Irritable bowel Headache Social History household members: spouse Smoking Status: Former smoker alcohol intake: current Assessment & Plan Assessment & Plan narrative: 1. Acute on chronic LBP, present on admission and active. 2. DM, stable. 3. Hypothyroidism, stable. PLAN: -we will continue her baseline medications including morphine sulfate extended release after discussion with the patient. She will receive IV Dilaudid as needed today for pain control and then attempt a conversion to oral short-acting pain medications in an attempt to get her home by September 27 if possible. -we will reach out to her pain physician, Dr. Suh for his recommendations. WALE: 09/27 if pain control improved. Full code. Time-Based Coding :: [TOTAL MINUTES] spent with patient and on the chart (including review of chart, obtaining history, exam, reviewing outside data, placing orders, documenting exam and treatment plan, and counseling patient) on [DATE]. Quality VTE Deep Vein Thrombosis/Pulmonary Embolism Present on Admission: No
[2024-09-26 07:53] LABS: POC Glucose 121 mg/dL (70-99)
[2024-09-26 08:00] VITALS: BP 100/68; PULSE 74; RESP 12; TEMP 36; O2SAT 95
[2024-09-26] MEDS: MORPHINE ER 15 MG TABLET PO ×4 (09:16→20:48)
--- NOTE | 2024-09-26 10:56 | PC.NURSE ---
Pt alert and oriented, conversant, appropriately articulate regarding pain medicine needs. restful at present though comments pain meds tried haven't been affective. Discussed pain management with Dr Krause. no new orders. BG stable.
--- NOTE | 2024-09-26 11:01 | CM.DANOTE ---
B DCP Assessment note pt is a 58yo F admitted with acute on chronic back pain. recent hx of SI fusion from Dr. Quintana in May of this year. She was had severe pain since that time which is not been improving PCP Enrike Carvajal Payer Medicare and self pay MEASUREMENT OPERATOR reviewed EMR per provider in morning rounds, no current PT but may put in eval pending next day or so. anticipate dc tomorrow after another day of pain management. per chart, pt lives indep with spouse in [place]. (MCR for disability?). per RN note, pt A/Ox4. per chart review, no obvious CM needs identified at this time P: anticipate dc tomorrow vs Saturday after further pain management control. consider PT eval if needed. CM team will continue to follow closely in case any DCP needs should arise MIHIR Martínez Discharge Planning/Care Management CM Discharge Assessment Start: 09/25/24 14:28 Freq: Status: Active Protocol: Document 09/26/24 11:00 (Rec: 09/26/24 11:01 Desktop) Discharge Planning Assessment Assigned Discharge MIHIR Lebron Airborne Sensor Specialist DPOA/Assigned [place], spouse Designee Name Contact Information [phone] Advance Directives? No History Provided By Patient,Medical Record Prior Living House Arrangements Household Members spouse Independent with ADL Yes 's Is patient alert and Yes oriented? Discharge Plan Home Transportation Spouse Arrangement Referrals Initiated None needed Review Status In Process Please Provide Date 09/26/24 Initial DC Assessment Was Performed Next Review Type Continued Stay Review
[2024-09-26 11:58] LABS: POC Glucose 135 mg/dL (70-99)
[2024-09-26] MEDS: INSULIN LISPRO 100 UNIT/ML 3ML VIAL SUBCUT (13:00)
[2024-09-26] MEDS: ONDANSETRON 4 MG ODT PO ×2 (15:54→20:19)
[2024-09-26] MEDS: PRAMIPEXOLE 0.25 MG TABLET 1 MG PO (18:43)
[2024-09-26 20:09] VITALS: BP 138/84; PULSE 89; RESP 20; TEMP 37.3; O2SAT 96
[2024-09-26 20:18] LABS: POC Glucose 122 mg/dL (70-99)
[2024-09-27] MEDS: HYDROMORPHONE 1 MG INJ IV ×4 (02:02→14:27)
[2024-09-27] MEDS: HYDROCODONE/ACET 5/325 TABLET 2 TAB PO (02:08)
--- NOTE | 2024-09-27 02:27 | PC.NURSE ---
Pt states her pain is 9\10 to her lower back, pt alert and oriented, pt offered dilaudid 1 mg IVP and Pt also requesting a long acting pain medication which was 2 [place] PO. pt states feeling overwhelmed with all the pain she is having to her back.
[2024-09-27] MEDS: LEVOTHYROXINE 100 MCG TABLET 200 MCG PO (05:11)
[2024-09-27 08:00] VITALS: BP 123/68; PULSE 84; RESP 16; TEMP 35.9; O2SAT 94
[2024-09-27 08:03] LABS: POC Glucose 130 mg/dL (70-99)
[2024-09-27] MEDS: INSULIN LISPRO 100 UNIT/ML 3ML VIAL SUBCUT ×2 (08:25→12:10)
[2024-09-27] MEDS: MORPHINE ER 15 MG TABLET PO (09:02)
[2024-09-27] MEDS: FAMOTIDINE 20 MG TABLET PO (09:03)
[2024-09-27] MEDS: HYDROCODONE/ACET 10/325 TABLET 2 TAB PO (12:10)
--- NOTE | 2024-09-27 14:06 | P.DS_ITS ---
History of Present Illness History of Present Illness Chief complaint: SI joint Fusion failed. Bilateral leg weakness Narrative: ED Doctor: 58-year-old woman with a history of diabetes, hypothyroidism anxiety chronic back and SI pain with prior L4-5 laminectomy and SI joint surgical intervention, has chronic pain in her low back for which she is seen by pain clinic and has been part of that clinic for at least 10 years if not longer. Current pain regimen includes 15 mg of morphine b.i.d. with 2 Vicodin b.i.d. as needed throughout the day. She does not tolerate nonsteroidals, did not do well with gabapentin or Lyrica. She presents saying that over the last 1-1/2 months she has had waxing and waning pain that has progressively gotten worse and is well beyond her current baseline. Because of her previous laminectomy, she can no longer have MRI studies. She states that this morning she went to get out of bed and had sharp pain with a popping sound in the left SI area and after that had increasing paresthesia in an L1 and L2 distribution. She has never since her laminectomy she has had some difficulty starting her urine but does not note that she has had any worsening in the symptoms today. No perineal paresthesia. She does report that she is having progressive weakness in both legs that has been somewhat noticeable over the last month and a half and since this episode with significant increased pain getting out of bed this morning describes her lower extremities is significantly more weak to the point it is difficult for her to stand up without assistance HPI: She recounts her SI fusion from Dr. Quintana in May of this year. She was had severe pain since that time which is not been improving. In fact, in spite of her pain medications has been getting worse and she has been unable to really move or drive. The pain is increased with lying flat on her back or standing up. It was less when she lies on her side. She was some numbness inside both thighs. She was weakness in both upper legs. She denies bowel or bladder dysfunction. She was also followed by Dr. Holger Rangel and Dr. Suh, to spine physicians. Imaging was reviewed with Dr. Suh by the ED physician today. He recommended pain medicine and no surgical intervention. His number is [phone]. Discharge Providers Provider Date of admission: 09/25/24 13:46 Discharge Date: 09/27/24 Primary care physician: Enrike Carvajal PA-C Consults: Discussed with her Spine surgeon, Dr. Suh on the phone. Discharge provider: Antonio Krause MD Summary Hospital Course Discharge Diagnosis: 1. Acute on chronic LBP, present on admission and active. 2. DM, stable. 3. Hypothyroidism, stable. Hospital Course: She was admitted with intractable back pain. She was a history of chronic back pain as well as a recent right SI fusion. She was been on opiates long-term for many years. She was initially on Vicodin 08/01/2024 and then had most recently been on 01/01/2025. She was started on [place] long-acting 1 week prior to arrival. She recently had this fusion in his had increased midline lumbar pain as well as right SI joint pain. Imaging at time of admission did not reveal any acute fractures or dislocations in her lower back or SI joint. She was treated with IV pain medications and her Vicodin was increased to 2 10 mg tablets twice a day as needed for pain. Images were pushed to [facility] in Dr. Suh had a chance to review these. He ultimately felt that he would be able to see her this week and discuss a possible SI joint revision. She was discharged and reasonable condition and understands the plan. Status at Discharge Cognitive/behavioral status at discharge: oriented Functional status at discharge: independent ambulation Overall status at discharge: patient is back to baseline Time Spent with Patient Time spent: Greater than 30 minutes Exam Vital Signs (past 8 hours): - 09/27/24 08:00 Temperature 96.7 F L Pulse Rate 84 Respiratory Rate 16 Blood Pressure 123/68 Pulse Oximetry 94 Oxygen Flow Rate 0 Oxygen Delivery Method Room Air Oxygen Flow Rate 0 Narrative Exam Narrative: NAD, alert and oriented. Fluent speech. Lungs are clear, normal rate and effort. Heart is regular, no murmur gallop or rub. Abdomen is soft, non distended. Extremities are free of edema. Objective Imaging Multiple studies:: Radiologist's impression: Pelvis CT: Right sacroiliac joint hardware in place. No acute osseous abnormalities are appreciated. Lumbar spine CT: No acute osseous abnormalities. No significant degenerative changes. Labs 09/25/24 09:45 09/25/24 09:45 Labs: Laboratory Results - last 24 hr 09/26/24 09/27/24 16:55 08:01 POC Whole Bld Glucose 122 H 130 H PFSH Medical History Restless legs Irritable bowel Headache Social History household members: spouse Smoking Status: Former smoker alcohol intake: current Discharge Assessment & Plan Assessment and Plan Assessment: 1. Acute on chronic LBP, present on admission and active. [N], the patient has documentation of a left ventricle ejection fracture less than or equal to 40%, or moderately or severely reduced left ventricle systolic function. [N], the patient has a history of heart transplant or left ventricular assist device (LVAD). [N], the patient was prescribed an JORGE inhibitor at discharge or is already being taken. [N], the patient was prescribed Metoprolol succinate, bisoprolol, or carvedilol at discharge. Plan of Treatment: She was discharged with an additional 20 tablets of Vicodin 01/01/2025. Dr. Suh we will be in touch with her on Saturday to get her in to be seen on Saturday to talk about SI joint revision. Discharge Plan Discharge Plan Patient Disposition: Home Provider Discharge Comment: Pain improved with change of oral regimen. Stable for discharge home and she will follow up with her spine surgeon tomorrow morning by phone. I have also sent a direct electronic message to Dr. Suh. Discharge orders & Medications Prescriptions: New hydrocodone-acetaminophen 10-325 mg tablet 2 tab PO BID PRN (Reason: severe back pain) Qty: 20 0RF Continued lidocaine 5 % adhesive patch,medicated 1 patch topical DAILY PRN (Reason: pain ) Qty: 15 0RF Rx Instructions: leave on most painful area for up to 12 hrs ondansetron 4 mg tablet,disintegrating 4 mg PO Q8H PRN (Reason: nausea and vomiting) Qty: 10 0RF tizanidine 4 mg tablet 4 mg PO BID pramipexole 0.25 mg tablet 1 mg PO ONCE PM levothyroxine 200 mcg tablet 200 mcg PO DAILY clonazepam 0.5 mg tablet 0.5 mg PO 3XD PRN (Reason: anxiety) Ozempic 2 mg/dose (8 mg/3 mL) pen injector 2 mg SUBCUT WEEKLY morphine 15 mg tablet extended release 15 mg PO Q8H Discontinued hydrocodone-acetaminophen 5-325 mg tablet 1 tab PO Q6H PRN (Reason: pain) Qty: 14 0RF hydrocodone-acetaminophen 5-325 mg tablet 1 tab PO Q6H PRN (Reason: pain) Follow up/Referrals: Enrike Carvajal PA-C [Primary Care Provider, Medical] Discharge Health Status Multidrug resistant organism: No MDRO Diet/Activity/Treatments Diet: Diet as Tolerated Visit Report/Discharge Packet Instructions: DI for Low Back Pain, DI for Prescription Opioid Use Stand Alone Forms: Patient Portal/API Discharge Data Primary Care Provider: Enrike Carvajal Quality VTE Deep Vein Thrombosis/Pulmonary Embolism Present on Admission: No MIPS - DC The patient has a history of heart transplant or Left Ventricular Assist Device (LVAD). If yes, STOP here.: No The patient has current or prior documentation of left ventricular ejection fraction (LVEF) less than or equal to 40%, or moderate or severely depressed left ventricular systolic function.: No
--- NOTE | 2024-09-27 14:48 | CM.DPC ---
DCP Discharge Home Per MD, no PT need and pain seems as controlled as possible at this time and medically stable to d/c home today with outpt f/u. Per RN, pt has been SBA in room and provided discharge instructions and ride arrived to transport pt home today and no concerns noted. MIHIR [place]
[2024-09-27 23:59] LABS: POC Glucose 144 mg/dL (70-99)
== END 2024-09-27 15:10 | disposition home or self-care (01) | DRG 552 ==
LOC: ED 13:36 → AC 13:46
PROVIDERS: Admitting Provider Hospitalist; Emergency Provider Emergency Medicine; PCP Student in an Organized Health Care Education/Training Program; Referring Provider Emergency Medicine; Visit Provider Hospitalist
DX: M54.50 Low back pain, unspecified (principal); R20.2 Paresthesia of skin; G89.29 Other chronic pain; E11.9 Type 2 diabetes mellitus without complications; E03.9 Hypothyroidism, unspecified; G25.81 Restless legs syndrome; F41.9 Anxiety disorder, unspecified; Z87.891 Personal history of nicotine dependence; Z98.890 Other specified postprocedural states; Z98.1 Arthrodesis status; Z79.890 Hormone replacement therapy; Z79.85 Long-term (current) use of injectable non-insulin antidiabetic drugs
CPT/HCPCS: 51798; 72131; 72192; 80053; 81015; 82962; 85025; 96374; 96376; 99284; G0378; A9270; J1171; J1815

== ENCOUNTER 2024-09-28 17:02 | Emergency (ER) | payer MEDICARE, SELFPAY ==
[2024-09-25 14:28] VITALS: BMI 32.4
[2024-09-28 17:13] VITALS: BP 202/106; PULSE 91; RESP 16; TEMP 36.3; O2SAT 100; BMI 30.9
--- NOTE | 2024-09-28 18:20 | ED.BACK ---
HPI - Back Pain/Injury General Chief Complaint: Back Pain/Injury Stated Complaint: Low Back Pain, Urinary Symptoms Time Seen by Provider: 09/28/24 17:12 Source: patient History of Present Illness HPI Narrative: 58-year-old female history of chronic back pain status post post L4-L5 laminectomy and SI joint surgical intervention admitted for intractable back pain on Saturday and discharged on Saturday with Vicodin and morphine came in today stating that she was incontinent of stool twice today instill having severe pain in the SI joint region where she had the surgery this past May in [place] a radiating down the middle and medial side inside of her thigh at this time. Patient denies fever, chills, abdominal pain nausea vomiting constipation, vaginal discharge, trauma or recent heavy lifting. Other than what is stated 14 point review of system is negative. Related Data Home Medications ?Medication ?Instructions ?Recorded ?Confirmed levothyroxine 200 mcg tablet 200 mcg PO DAILY 11/30/23 09/25/24 pramipexole 0.25 mg tablet 1 mg PO ONCE PM 11/30/23 09/25/24 tizanidine 4 mg tablet 4 mg PO BID 11/30/23 09/25/24 clonazepam 0.5 mg tablet 0.5 mg PO 3XD PRN anxiety 09/25/24 09/25/24 morphine 15 mg tablet,extended 15 mg PO Q8H pain 09/25/24 09/25/24 release semaglutide 2 mg/dose (8 mg/3 mL) 2 mg SUBCUT WEEKLY 09/25/24 09/25/24 subcutaneous pen injector (Ozempic) Previous Rx's ?Medication ?Instructions ?Recorded lidocaine 5 % topical patch 1 patch topical DAILY PRN pain 02/01/21 #15 ea ondansetron 4 mg disintegrating 4 mg PO Q8H PRN nausea and 07/28/21 tablet vomiting #10 tabs hydrocodone 10 mg-acetaminophen 2 tab PO BID PRN severe back pain 09/27/24 325 mg tablet #20 tabs Allergies Allergy/AdvReac Type Severity Reaction Status Date / Time hydroxychloroquine Allergy Severe Anaphylaxis Verified 09/28/24 17:12 metaxalone (From Skelaxin) Allergy Severe Anaphylaxis Verified 09/28/24 17:12 sertraline Allergy Severe Anaphylaxis Verified 09/28/24 17:12 Sulfa (Sulfonamide Allergy Severe Anaphylaxis Verified 09/28/24 17:12 Antibiotics) tramadol Allergy Severe Anaphylaxis Verified 09/28/24 17:12 bupropion Allergy Verified 09/28/24 17:12 diphenhydramine Allergy Verified 09/28/24 17:12 duloxetine Allergy Verified 09/28/24 17:12 lamotrigine Allergy Verified 09/28/24 17:12 oxycodone Allergy Verified 09/28/24 17:12 promethazine (From Phenergan) Allergy Verified 09/28/24 17:12 benzonatate AdvReac Mild Verified 09/28/24 17:12 amoxicillin AdvReac Verified 09/28/24 17:12 citalopram AdvReac Verified 09/28/24 17:12 Gadolinium-Containing AdvReac Verified 09/28/24 17:12 Contrast Medi haloperidol AdvReac Verified 09/28/24 17:12 ketorolac AdvReac Verified 09/28/24 17:12 metoclopramide (From Reglan) AdvReac Verified 09/28/24 17:12 naproxen AdvReac Verified 09/28/24 17:12 pregabalin AdvReac Verified 09/28/24 17:12 prochlorperazine AdvReac Verified 09/28/24 17:12 quetiapine AdvReac Verified 09/28/24 17:12 spironolactone AdvReac Verified 09/28/24 17:12 Review of Systems Review of Systems ROS Unobtainable: All systems reviewed & are unremarkable except as noted in HPI and below Patient History Medical History Restless legs Irritable bowel Headache Social History household members: spouse alcohol intake: current tobacco type: vaping alcohol intake frequency: holidays/special occasions only Exam Narrative Exam Narrative: GENERAL: [58] year old patient appears stated age. Well-developed patient, in mild distress. HEAD: Atraumatic. Normocephalic. EYES: Pupils equal round and reactive. Extraocular motions intact. No scleral icterus. No injection or drainage. ENT: Nose without bleeding, purulent drainage. Throat without erythema, tonsillar hypertrophy or exudate. Airway patent. NECK: Trachea midline. Non tender CARDIOVASCULAR: Regular rate and rhythm without murmurs, gallops, or rubs. RESPIRATORY: Clear to auscultation. Breath sounds equal bilaterally. No wheezes, rales, or rhonchi. GASTROINTESTINAL: Abdomen soft, non-tender, nondistended. EXTREMITIES: No edema or joint tenderness. BACK: TTP R SI joint region L4-5-1 Sq NEURO: AOx3. SKIN: No rash or erythema of visible areas Initial Vital Signs Initial Vital Signs: Vital Signs Temperature 97.3 F L 09/28/24 17:13 Pulse Rate 91 H 09/28/24 17:13 Respiratory Rate 16 09/28/24 17:13 Blood Pressure 202/106 H 09/28/24 17:13 Pulse Oximetry 100 09/28/24 17:13 Oxygen Delivery Method Room Air 09/28/24 17:13 Course Orders Ordered: Discontinued Medications Hydromorphone HCl (Hydromorphone 1 Mg Inj) 1 mg IM NOW ONE Stop: 09/28/24 18:47 Last Admin: 09/28/24 18:52 Dose: 1 mg Documented By: ES Vital Signs Vital signs: Vital Signs - 8 hr 09/28/24 21:19 Pulse Rate 84 Respiratory Rate 17 Blood Pressure 193/90 H Pulse Oximetry 99 Oxygen Delivery Method Room Air MDM - Back Pain/Injury Lab Data Labs: Lab Results 09/28/24 Range/Units 19:44 POC Whole Bld Glucose 117 H (70-99) mg/dL MDM Narrative Medical decision making narrative: Vital signs, nurse triage note, medication list, previous ER visits, and all imaging studies reviewed. Pelvic CT showed right sacroiliac joint hardware in place no acute osseous abnormalities are appreciated on 09/25/2024. However, Pelvic CT from 09/27/24 showed right posterior inferior sacroiliac hardware with trace ruthie hardware lucency at the lateral iliac side. This could represent mild degree of loosening. CT lumbar spine from 09/25/24 showed no acute osseous abnormalities. No significant degenerative changes. I spoke with Dr. Suh who has not yet met the patient but was consulted at patient's request for 2nd opinion and his summary is as follows patient had a single nerve decompression treatment in 2014 for her axial SI joint pain and this was follow up by SI and fusion on the right side at [facility] for which the patient did fine for 4-6 weeks. Imaging showed device malposition in the SI joint did not fuse. Patient will need follow up to have device removed. Patient had normal rectal tone and postvoid residual was 1 mL bladder scan NS such there is no concern for cauda equina syndrome or spinal stenosis or central stenosis. I did also speak with Dr. Quintana for which he said he is available at any time for her to follow up with him to have the device removed also. He states that the device is titanium and no one has at this time tested at for MRI compatibility and patient would need a CT myelogram or nerve conduction study. There is no radiologist here on site to conduct CT myelogram. Patient has a normal nonfocal neuro exam, with normal rectal tone, 1 mL post residual void on bladder scan. Patient has pain medicines at home as previously prescribed. She does not want to see Dr. Quintana anymore who initially did her surgery and would like to follow up with Dr. Suh for which I was able to obtain an appointment for the patient at this Saturday at 10:00 a.m. Discharge Plan Departure Patient Disposition: Home Clinical Impression: Sacroiliac joint pain Instructions: DI for Low Back Pain Activity Restrictions/Additional Instructions: Return with new or worsening symptoms. Please follow up with Dr. Suh at 10am this Saturday for appointment. Take your medicines previously prescribed for pain. Prescriptions: No Action lidocaine 5 % adhesive patch,medicated 1 patch topical DAILY PRN (Reason: pain ) Qty: 15 0RF Rx Instructions: leave on most painful area for up to 12 hrs ondansetron 4 mg tablet,disintegrating 4 mg PO Q8H PRN (Reason: nausea and vomiting) Qty: 10 0RF tizanidine 4 mg tablet 4 mg PO BID pramipexole 0.25 mg tablet 1 mg PO ONCE PM levothyroxine 200 mcg tablet 200 mcg PO DAILY clonazepam 0.5 mg tablet 0.5 mg PO 3XD PRN (Reason: anxiety) Ozempic 2 mg/dose (8 mg/3 mL) pen injector 2 mg SUBCUT WEEKLY morphine 15 mg tablet extended release 15 mg PO Q8H hydrocodone-acetaminophen 10-325 mg tablet 2 tab PO BID PRN (Reason: severe back pain) Qty: 20 0RF Referrals: Enrike Carvajal PA-C [Primary Care Provider, Medical] Stand Alone Forms: Patient Portal/API
[2024-09-28] MEDS: HYDROMORPHONE 1 MG INJ IM (18:52)
[2024-09-28 19:46] LABS: POC Glucose 117 mg/dL (70-99)
--- NOTE | 2024-09-28 20:40 | PC.NURSE ---
This nurse instructor trainer canine service for Dr. Witt doing rectal tone exam on pt.
[2024-09-28 21:19] VITALS: BP 193/90; PULSE 84; RESP 17; O2SAT 99
--- NOTE | 2024-09-28 21:20 | PC.NURSE ---
Pt BP high, Dr. Witt aware. pt takes BP medicine at home around this time. is deemed safe for DC and states she will take her BP meds when she gets home.
== END 2024-09-28 21:22 | disposition home or self-care (01) ==
PROVIDERS: Emergency Provider Family Medicine; PCP Student in an Organized Health Care Education/Training Program
DX: M53.3 Sacrococcygeal disorders, not elsewhere classified (principal)
CPT/HCPCS: 51798; 82962; 96372; 99283; 99284; J1171

== ENCOUNTER 2024-10-03 09:16 | Emergency (ER) | payer MEDICARE, SELFPAY ==
[2024-09-25 14:28] VITALS: BMI 32.4
[2024-10-03] VITALS (7 sets, daily range): BP systolic 144–173; BP diastolic 79–81; PULSE 79–91; RESP 16–18; TEMP 37; O2SAT 97–100; BMI 32.2
--- NOTE | 2024-10-03 09:36 | DI.RAD.S_ITS ---
PROCEDURE: XR LUMBAR SPINE MIN three views INDICATIONS: back pain TECHNIQUE: Three views of the lumbar spine COMPARISON: [facility], CT, CT LUMBAR SPINE WO CON, 09/25/2024, 9:55. FINDINGS AND IMPRESSION: Mild lumbar spondylosis with disc space height loss most obvious at L5-S1 and thoracolumbar junction. Vertebral body heights are well maintained. No traumatic subluxation. If there is high concern for further derangement, consider MRI evaluation. Cholecystectomy clips. Dictated by: Ajit Gordon M.D. on 10/03/2024 at 9:42 Approved by: Ajit Gordon M.D. on 10/03/2024 at 9:43
--- NOTE | 2024-10-03 09:36 | DI.RAD.S_ITS ---
PROCEDURE: XR SACROILIAC JOINT MIN 3V INDICATIONS: back pain TECHNIQUE: 3 views of the sacroiliac joints were acquired. COMPARISON: [facility]ated [facility], CT, CT PEL WO CON, 09/25/2024, 9:55. FINDINGS AND IMPRESSION: Lower right sacroiliac hardware, probably similar to prior allowing for differences in modality. Mild bilateral sacroiliac arthrosis. No acute displaced fracture or pelvic ring disruption. If there is further concern, consider cross-sectional imaging. Dictated by: Ajit Gordon M.D. on 10/03/2024 at 9:44 Approved by: Ajit Gordon M.D. on 10/03/2024 at 9:45
--- NOTE | 2024-10-03 09:37 | ED.BACK ---
HPI - Back Pain/Injury General Chief Complaint: Back Pain/Injury Stated Complaint: Grinding spinal pain post surgery +5mons Time Seen by Provider: 10/03/24 09:20 History of Present Illness HPI Narrative: 58-year-old female seen by me about a week ago for back pain for which she eventually did see this past week Dr. Suh in [place] who will be replacing the device in his waiting for insurance approval at this time presents with back pain and nausea and vomiting nonbilious nonbloody few times since last night after gardening having difficulty sitting or standing at this time despite taking Vicodin and morphine at this time. Patient has to lie sideways with the pill in between her legs for pain control. Patient denies abdominal pain, fever, chills, diarrhea, constipation, UTI symptoms, vaginal discharge. Other than what is stated 14 point review of system is negative. Related Data Home Medications ?Medication ?Instructions ?Recorded ?Confirmed levothyroxine 200 mcg tablet 200 mcg PO DAILY 11/30/23 10/03/24 pramipexole 0.25 mg tablet 1 mg PO ONCE PM 11/30/23 10/03/24 tizanidine 4 mg tablet 4 mg PO BID 11/30/23 10/03/24 clonazepam 0.5 mg tablet 0.5 mg PO 3XD PRN anxiety 09/25/24 10/03/24 morphine 15 mg tablet,extended 15 mg PO Q8H pain 09/25/24 10/03/24 release semaglutide 2 mg/dose (8 mg/3 mL) 2 mg SUBCUT WEEKLY 09/25/24 10/03/24 subcutaneous pen injector (Ozempic) Previous Rx's ?Medication ?Instructions ?Recorded lidocaine 5 % topical patch 1 patch topical DAILY PRN pain 02/01/21 #15 ea ondansetron 4 mg disintegrating 4 mg PO Q8H PRN nausea and 07/28/21 tablet vomiting #10 tabs hydrocodone 10 mg-acetaminophen 2 tab PO BID PRN severe back pain 09/27/24 325 mg tablet #20 tabs hydromorphone 2 mg tablet 2 mg PO Q6H PRN pain #20 tabs 10/03/24 ondansetron 4 mg disintegrating 4 mg PO Q8H PRN nausea and 10/03/24 tablet vomiting #30 tabs Allergies Allergy/AdvReac Type Severity Reaction Status Date / Time hydroxychloroquine Allergy Severe Anaphylaxis Verified 10/03/24 09:31 metaxalone (From Skelaxin) Allergy Severe Anaphylaxis Verified 10/03/24 09:31 sertraline Allergy Severe Anaphylaxis Verified 10/03/24 09:31 Sulfa (Sulfonamide Allergy Severe Anaphylaxis Verified 10/03/24 09:31 Antibiotics) tramadol Allergy Severe Anaphylaxis Verified 10/03/24 09:31 bupropion Allergy Verified 10/03/24 09:31 diphenhydramine Allergy Verified 10/03/24 09:31 duloxetine Allergy Verified 10/03/24 09:31 lamotrigine Allergy Verified 10/03/24 09:31 oxycodone Allergy Verified 10/03/24 09:31 promethazine (From Phenergan) Allergy Verified 10/03/24 09:31 ketorolac (From Toradol) AdvReac Intermediate Hypertensio Verified 10/03/24 10:00 n benzonatate AdvReac Mild Verified 10/03/24 09:31 amoxicillin AdvReac Verified 10/03/24 09:31 citalopram AdvReac Verified 10/03/24 09:31 Gadolinium-Containing AdvReac Verified 10/03/24 09:31 Contrast Medi haloperidol AdvReac Verified 10/03/24 09:31 metoclopramide (From Reglan) AdvReac Verified 10/03/24 09:31 naproxen AdvReac Verified 10/03/24 09:31 pregabalin AdvReac Verified 10/03/24 09:31 prochlorperazine AdvReac Verified 10/03/24 09:31 quetiapine AdvReac Verified 10/03/24 09:31 spironolactone AdvReac Verified 10/03/24 09:31 Review of Systems Review of Systems ROS Unobtainable: All systems reviewed & are unremarkable except as noted in HPI and below Patient History Medical History Restless legs Irritable bowel Headache Social History household members: spouse alcohol intake: current tobacco type: vaping alcohol intake frequency: holidays/special occasions only Exam Narrative Exam Narrative: GENERAL: [58] year old patient appears stated age. Well-developed patient, in mild distress. HEAD: Atraumatic. Normocephalic. EYES: Pupils equal round and reactive. Extraocular motions intact. No scleral icterus. No injection or drainage. EXTREMITIES: B/L paralumbosacral TTP L4-5 S1, motor sensory intact +2 DP +2 PT cap refill less than 2 seconds bilateral lower extremity. BACK: Nontender without deformity or crepitance. No flank tenderness. NEURO: AOx3. SKIN: No rash or erythema of visible areas Initial Vital Signs Initial Vital Signs: Vital Signs Temperature 98.6 F 10/03/24 09:28 Pulse Rate 89 10/03/24 09:28 Respiratory Rate 16 10/03/24 09:28 Blood Pressure 173/81 H 10/03/24 09:28 Pulse Oximetry 100 10/03/24 09:28 Oxygen Delivery Method Room Air 10/03/24 09:28 Course Orders Ordered: ED Orders 10/03/24 09:36 XR lumbar spine min 4V Stat XR sacroiliac joint min 3V Stat Discontinued Medications Hydromorphone HCl (Hydromorphone 1 Mg Inj) 1 mg IM NOW ONE Stop: 10/03/24 09:37 Last Admin: 10/03/24 09:45 Dose: 1 mg Documented By: CARLYN Ketorolac Tromethamine (Ketorolac 30 Mg/Ml Vial) 30 mg IM NOW ONE Stop: 10/03/24 09:37 Last Admin: 10/03/24 09:56 Dose: Not Given Documented By: CARLYN Ondansetron HCl (Ondansetron 4 Mg Odt) 4 mg SL NOW ONE Stop: 10/03/24 09:37 Last Admin: 10/03/24 09:45 Dose: 4 mg Documented By: CARLYN Vital Signs Vital signs: Vital Signs - 8 hr 10/03/24 09:28 Temperature 98.6 F Pulse Rate 89 Respiratory Rate 16 Blood Pressure 173/81 H Pulse Oximetry 100 Oxygen Delivery Method Room Air MDM - Back Pain/Injury Imaging Data Extremity x-ray #1: Radiologist's Impression: [address] [address] XRay Report Signed Patient: Samra Abdullahi MR#: [id number] : 1965 Acct:[id number] Age/Sex: 58 / F Date of Service: 10/03/24 Loc: ED Accession Number: [id number] Procedure: XR lumbar spine min 4V Ordering Provider: Александр Witt D.O. PROCEDURE: XR LUMBAR SPINE MIN three views INDICATIONS: back pain TECHNIQUE: Three views of the lumbar spine COMPARISON: [facility], CT, CT LUMBAR SPINE WO CON, 09/25/2024, 9:55. FINDINGS AND IMPRESSION: Mild lumbar spondylosis with disc space height loss most obvious at L5-S1 and thoracolumbar junction. Vertebral body heights are well maintained. No traumatic subluxation. If there is high concern for further derangement, consider MRI evaluation. Cholecystectomy clips. [address] [address] XRay Report Signed Patient: Samra Abdullahi MR#: [id number] : 1965 Acct:[id number] Age/Sex: 58 / F Date of Service: 10/03/24 Loc: ED Accession Number: [id number] Procedure: XR sacroiliac joint min 3V Ordering Provider: Александр Witt D.O. PROCEDURE: XR SACROILIAC JOINT MIN 3V INDICATIONS: back pain TECHNIQUE: 3 views of the sacroiliac joints were acquired. COMPARISON: [facility], CT, CT PEL WO CON, 09/25/2024, 9:55. FINDINGS AND IMPRESSION: Lower right sacroiliac hardware, probably similar to prior allowing for differences in modality. Mild bilateral sacroiliac arthrosis. No acute displaced fracture or pelvic ring disruption. If there is further concern, consider cross-sectional imaging. MDM Narrative Medical decision making narrative: Vital signs nurse triage note patient list previous ER visits and all imaging studies reviewed. Patient received Dilaudid 1 mg IM x2 and Zofran here. X-rays showed mild bilateral sacroiliac arthritis no acute displaced fracture pelvic ring disruption. Lower right sacroiliac hardware probably similar to prior allowing for differences in modality. Mild lumbar spondylosis with disc space height loss most obvious L5-S1 as thoracolumbar junction. Vertebral heights are well maintained no traumatic subluxation. Differential diagnosis include chronic pain, device malalignment, and arthritis. DC home on Dilaudid and Zofran and to follow up with Dr. Suh in [place] for hardware removal. Discharge Plan Departure Patient Disposition: Home Clinical Impression: Sacro-iliac pain Instructions: DI for Low Back Pain Activity Restrictions/Additional Instructions: Return with new or worsening symptoms. Take your medicines as directed. Follow up with Dr. Suh at your next scheduled appointment. Prescriptions: New hydromorphone 2 mg tablet 2 mg PO Q6H PRN (Reason: pain) Qty: 20 0RF ondansetron 4 mg tablet,disintegrating 4 mg PO Q8H PRN (Reason: nausea and vomiting) Qty: 30 0RF No Action lidocaine 5 % adhesive patch,medicated 1 patch topical DAILY PRN (Reason: pain ) Qty: 15 0RF Rx Instructions: leave on most painful area for up to 12 hrs ondansetron 4 mg tablet,disintegrating 4 mg PO Q8H PRN (Reason: nausea and vomiting) Qty: 10 0RF tizanidine 4 mg tablet 4 mg PO BID Patient Comments: takes 1 x daily generally, prescribed to take 2 x daily if needed can pramipexole 0.25 mg tablet 1 mg PO ONCE PM levothyroxine 200 mcg tablet 200 mcg PO DAILY clonazepam 0.5 mg tablet 0.5 mg PO 3XD PRN (Reason: anxiety) Ozempic 2 mg/dose (8 mg/3 mL) pen injector 2 mg SUBCUT WEEKLY morphine 15 mg tablet extended release 15 mg PO Q8H hydrocodone-acetaminophen 10-325 mg tablet 2 tab PO BID PRN (Reason: severe back pain) Qty: 20 0RF Referrals: Enrike Carvajal PA-C [Primary Care Provider, Medical] Stand Alone Forms: Patient Portal/API
[2024-10-03] MEDS: ONDANSETRON 4 MG ODT SL (09:45)
[2024-10-03] MEDS: HYDROMORPHONE 1 MG INJ IM ×2 (09:45→11:42)
== END 2024-10-03 11:48 | disposition home or self-care (01) ==
PROVIDERS: Emergency Provider Family Medicine; PCP Student in an Organized Health Care Education/Training Program; Referring Provider Student in an Organized Health Care Education/Training Program
DX: M53.3 Sacrococcygeal disorders, not elsewhere classified (principal); R11.2 Nausea with vomiting, unspecified; Z98.890 Other specified postprocedural states
CPT/HCPCS: 72110; 72202; 96372; 99283; J1171

== ENCOUNTER 2024-10-13 19:53 | Emergency (ER) | payer MEDICARE, SELFPAY ==
[2024-09-25 14:28] VITALS: BMI 32.4
[2024-10-13 20:00] VITALS: BP 174/90; PULSE 100; RESP 20; TEMP 37.2; O2SAT 97; BMI 31.8
--- NOTE | 2024-10-14 17:19 | ED.BACK ---
HPI - Back Pain/Injury General Chief Complaint: Abdominal Pain Stated Complaint: post op, nausea, Rt side leg,abd pain Time Seen by Provider: 10/13/24 21:21 Source: patient Related Data Home Medications ?Medication ?Instructions ?Recorded ?Confirmed levothyroxine 200 mcg tablet 200 mcg PO DAILY 11/30/23 10/03/24 pramipexole 0.25 mg tablet 1 mg PO ONCE PM 11/30/23 10/03/24 tizanidine 4 mg tablet 4 mg PO BID 11/30/23 10/03/24 clonazepam 0.5 mg tablet 0.5 mg PO 3XD PRN anxiety 09/25/24 10/03/24 morphine 15 mg tablet,extended 15 mg PO Q8H pain 09/25/24 10/03/24 release semaglutide 2 mg/dose (8 mg/3 mL) 2 mg SUBCUT WEEKLY 09/25/24 10/03/24 subcutaneous pen injector (Ozempic) Previous Rx's ?Medication ?Instructions ?Recorded lidocaine 5 % topical patch 1 patch topical DAILY PRN pain 02/01/21 #15 ea ondansetron 4 mg disintegrating 4 mg PO Q8H PRN nausea and 07/28/21 tablet vomiting #10 tabs hydrocodone 10 mg-acetaminophen 2 tab PO BID PRN severe back pain 09/27/24 325 mg tablet #20 tabs hydromorphone 2 mg tablet 2 mg PO Q6H PRN pain #20 tabs 10/03/24 ondansetron 4 mg disintegrating 4 mg PO Q8H PRN nausea and 10/03/24 tablet vomiting #30 tabs Allergies Allergy/AdvReac Type Severity Reaction Status Date / Time hydroxychloroquine Allergy Severe Anaphylaxis Verified 10/13/24 20:03 metaxalone (From Skelaxin) Allergy Severe Anaphylaxis Verified 10/13/24 20:03 sertraline Allergy Severe Anaphylaxis Verified 10/13/24 20:03 Sulfa (Sulfonamide Allergy Severe Anaphylaxis Verified 10/13/24 20:03 Antibiotics) tramadol Allergy Severe Anaphylaxis Verified 10/13/24 20:03 bupropion Allergy Verified 10/13/24 20:03 diphenhydramine Allergy Verified 10/13/24 20:03 duloxetine Allergy Verified 10/13/24 20:03 lamotrigine Allergy Verified 10/13/24 20:03 oxycodone Allergy Verified 10/13/24 20:03 promethazine (From Phenergan) Allergy Verified 10/13/24 20:03 ketorolac (From Toradol) AdvReac Intermediate Hypertensio Verified 10/13/24 20:03 n benzonatate AdvReac Mild Verified 10/13/24 20:03 amoxicillin AdvReac Verified 10/13/24 20:03 citalopram AdvReac Verified 10/13/24 20:03 Gadolinium-Containing AdvReac Verified 10/13/24 20:03 Contrast Medi haloperidol AdvReac Verified 10/13/24 20:03 metoclopramide (From Reglan) AdvReac Verified 10/13/24 20:03 naproxen AdvReac Verified 10/13/24 20:03 pregabalin AdvReac Verified 10/13/24 20:03 prochlorperazine AdvReac Verified 10/13/24 20:03 quetiapine AdvReac Verified 10/13/24 20:03 spironolactone AdvReac Verified 10/13/24 20:03 Patient History Medical History Restless legs Irritable bowel Headache Social History household members: spouse Smoking Status: Never smoker alcohol intake: current Smoking Status: Never smoker tobacco type: vaping alcohol intake frequency: holidays/special occasions only Exam Initial Vital Signs Initial Vital Signs: Vital Signs Temperature 99.0 F 10/13/24 20:00 Pulse Rate 100 H 10/13/24 20:00 Respiratory Rate 20 10/13/24 20:00 Blood Pressure 174/90 H 10/13/24 20:00 Pulse Oximetry 97 10/13/24 20:00 Oxygen Delivery Method Room Air 10/13/24 20:00 Course Orders Ordered: Discontinued Medications Ondansetron HCl (Ondansetron 4 Mg/2 Ml Inj) 4 mg IV NOW PRN PRN Reason: Nausea And Vomiting Ondansetron HCl (Ondansetron 4 Mg Odt) 4 mg PO NOW PRN PRN Reason: Nausea And Vomiting Discharge Plan Departure Patient Disposition: Left Without Being Seen Clinical Impression: Patient left before evaluation by physician Prescriptions: No Action lidocaine 5 % adhesive patch,medicated 1 patch topical DAILY PRN (Reason: pain ) Qty: 15 0RF Rx Instructions: leave on most painful area for up to 12 hrs ondansetron 4 mg tablet,disintegrating 4 mg PO Q8H PRN (Reason: nausea and vomiting) Qty: 10 0RF tizanidine 4 mg tablet 4 mg PO BID Patient Comments: takes 1 x daily generally, prescribed to take 2 x daily if needed can pramipexole 0.25 mg tablet 1 mg PO ONCE PM levothyroxine 200 mcg tablet 200 mcg PO DAILY hydromorphone 2 mg tablet 2 mg PO Q6H PRN (Reason: pain) Qty: 20 0RF ondansetron 4 mg tablet,disintegrating 4 mg PO Q8H PRN (Reason: nausea and vomiting) Qty: 30 0RF clonazepam 0.5 mg tablet 0.5 mg PO 3XD PRN (Reason: anxiety) Ozempic 2 mg/dose (8 mg/3 mL) pen injector 2 mg SUBCUT WEEKLY morphine 15 mg tablet extended release 15 mg PO Q8H hydrocodone-acetaminophen 10-325 mg tablet 2 tab PO BID PRN (Reason: severe back pain) Qty: 20 0RF
== END 2024-10-13 23:00 | disposition left against medical advice (07) ==
PROVIDERS: Emergency Provider Family Medicine; PCP Student in an Organized Health Care Education/Training Program
DX: Z53.21 Procedure and treatment not carried out due to patient leaving prior to being seen by health care provider (principal)
CPT/HCPCS: 99281

== ENCOUNTER 2024-10-14 19:20 | Inpatient (IN) | payer MEDICARE, SELFPAY ==
[2024-09-25 14:28] VITALS: BMI 32.4
[2024-10-14 19:38] VITALS: BP 149/76; PULSE 88; RESP 16; TEMP 37.2; O2SAT 97; BMI 31.8
--- NOTE | 2024-10-14 20:15 | DI.CT.S_ITS ---
PROCEDURE: CT ABDOMEN PELVIS WO CON INDICATIONS: Post op Rt SI joint fusion, severe pain TECHNIQUE: CT of the abdomen and pelvis was obtained without intravenous contrast. Coronal and sagittal reformats were performed. For radiation dose reduction, the following was used: automated exposure control, adjustment of mA and/or kV according to patient size. COMPARISON: [facility], CR, XR SACROILIAC JOINT MIN 3V, 10/03/2024, 9:54. [facility], CT, CT ABDOMEN PELVIS WITH CONTRAST, 11/28/2022, 19:49. [facility], CT, CT PEL WO CON, 09/25/2024, 9:55. FINDINGS: Image quality: Diagnostic. Lower Chest: No significant findings. ABDOMEN: Liver: No contour-deforming mass. Liver measures 21.6 cm with significant steatosis. Gallbladder: Removed. Biliary ducts: No biliary dilation. Pancreas: No ductal dilation. Spleen: Size is within normal limits. Adrenal Glands: No adrenal nodules. Kidneys and Ureters: No hydronephrosis. No contour-deforming mass. Stomach and Bowel: Normal colonic caliber, without significant wall thickening. Peritoneum: No abnormal intraperitoneal fluid. No free air. Ventral Wall: No significant hernia. Abdominal Nodes: No retroperitoneal or mesenteric adenopathy by size criteria. Vessels: Aorta and inferior vena cava are normal in size. PELVIS: Pelvic Organs: Unremarkable. Bladder: Unremarkable. Pelvic Nodes: No enlarged lymph nodes. Miscellaneous: No inguinal hernias are seen. Bones: In the interval since the prior exam, there appears to been revision of previous right SI joint surgical fusion hardware. Previous exam on 09/25/2024 demonstrated hardware at the posterior inferior aspect of the right sacroiliac joint. This with similar also on x-ray of 10/03/2024. Current exam demonstrates new hardware within the midportion the sacroiliac joint. The hardware appears intact. There is osseous irregularity and several small foci of air as well as osseous fragments within the posterior inferior sacroiliac joint space at the location previous hardware presumably postsurgical. There is also an osseous fragment adjacent to the right iliac at the posterior superior aspect. Again, this is suspected to be postsurgical Small scattered areas of fluid are also present within this region. No defined abscess. Several small foci of air are present within the right gluteal musculature presumably postoperative. IMPRESSION: Interval revision of right sacroiliac hardware as described. Areas of osseous fragmentation, suspected to be postsurgical. Additional areas air and scattered fluid are present likely postsurgical. Developing phlegmon or abscess cannot be definitively excluded as evaluation is limited without contrast. However, no grossly organized fluid collection is identified. Dictated by: Neetu Nash M.D. on 10/14/2024 at 21:12 Approved by: Neetu Nash M.D. on 10/14/2024 at 21:19
[2024-10-14 20:37] LABS: Add Manual Diff / Slide Review NO; Hematocrit 36.9 % (36-46); Hemoglobin 12.4 g/dL (12.0-16.0); Lymphocytes Absolute Auto 2400 /uL (1100-4500); Mean Corpuscular HGB Conc 33.6 % (30-36); Mean Corpuscular Hemoglobin 29.0 PG (26-34); Mean Corpuscular Volume 86.2 fL (80-100); Platelet Count 188 X10^3/uL (150-400)
[2024-10-14] MEDS: HYDROMORPHONE 1 MG INJ IV (20:38)
[2024-10-14 20:52] LABS: Alanine Aminotransferase 59 IU/L (<35); Albumin 4.3 g/dL (3.5-5.0); Albumin Globulin Ratio 1.2 (1.0-2.8); Alkaline Phosphatase 108 U/L (38-126); Blood Urea Nitrogen 13 mg/dL (7-17); Calcium 9.2 mg/dL (8.4-10.2); Carbon Dioxide 29 mmol/L (22-32); Chloride 100 mmol/L (98-107); Estimated Glomerular Filt Rate > 60 mL/min (>60); Globulin 3.5 g/dL (1.7-4.1); Glucose 150 mg/dL (70-99); HEMOLYSIS 21 (0-50); Potassium 4.3 mmol/L (3.4-5.1); Sodium 136 mmol/L (137-145); Total Protein 7.8 g/dL (6.3-8.2)
[2024-10-14 21:05] LABS: Procalcitonin 0.084 ng/mL (<0.5)
--- NOTE | 2024-10-14 22:30 | ED.RECABL ---
HPI - Recheck/Abnormal Lab/Rx General Chief Complaint: Recheck/Abnormal Lab/Rx Stated Complaint: R Hip Pain Time Seen by Provider: 10/14/24 19:47 Source: patient and EMS Mode of arrival: EMS History of Present Illness HPI narrative: Pleasant 58-year-old woman comes to the ER because of intractable lower back pain. The patient had an SI joint fusion revision 2 days ago and the morning after surgery the pain become unbearable and her surgeon advised her to come to the ER and possibly be admitted for pain control. Her surgeon was in [place] at the [facility] [place]. She denies any fever, chills, sweats, nausea, vomiting. She denies any numbness tingling or weakness of any part of her body. She denies loss of bowel or bladder control. She denies saddle anesthesia. She states that she is unable to bear weight because of the pain but denies any feelings of weakness or paralysis. She has no other concerns or complaints at this time. Related Data Home Medications ?Medication ?Instructions ?Recorded ?Confirmed levothyroxine 200 mcg tablet 200 mcg PO DAILY 11/30/23 10/03/24 pramipexole 0.25 mg tablet 1 mg PO ONCE PM 11/30/23 10/03/24 tizanidine 4 mg tablet 4 mg PO BID 11/30/23 10/03/24 clonazepam 0.5 mg tablet 0.5 mg PO 3XD PRN anxiety 09/25/24 10/03/24 morphine 15 mg tablet,extended 15 mg PO Q8H pain 09/25/24 10/03/24 release semaglutide 2 mg/dose (8 mg/3 mL) 2 mg SUBCUT WEEKLY 09/25/24 10/03/24 subcutaneous pen injector (Ozempic) Previous Rx's ?Medication ?Instructions ?Recorded lidocaine 5 % topical patch 1 patch topical DAILY PRN pain 02/01/21 #15 ea ondansetron 4 mg disintegrating 4 mg PO Q8H PRN nausea and 07/28/21 tablet vomiting #10 tabs hydrocodone 10 mg-acetaminophen 2 tab PO BID PRN severe back pain 09/27/24 325 mg tablet #20 tabs hydromorphone 2 mg tablet 2 mg PO Q6H PRN pain #20 tabs 10/03/24 ondansetron 4 mg disintegrating 4 mg PO Q8H PRN nausea and 10/03/24 tablet vomiting #30 tabs Allergies Allergy/AdvReac Type Severity Reaction Status Date / Time hydroxychloroquine Allergy Severe Anaphylaxis Verified 10/13/24 20:03 metaxalone (From Skelaxin) Allergy Severe Anaphylaxis Verified 10/13/24 20:03 sertraline Allergy Severe Anaphylaxis Verified 10/13/24 20:03 Sulfa (Sulfonamide Allergy Severe Anaphylaxis Verified 10/13/24 20:03 Antibiotics) tramadol Allergy Severe Anaphylaxis Verified 10/13/24 20:03 bupropion Allergy Verified 10/13/24 20:03 diphenhydramine Allergy Verified 10/13/24 20:03 duloxetine Allergy Verified 10/13/24 20:03 lamotrigine Allergy Verified 10/13/24 20:03 oxycodone Allergy Verified 10/13/24 20:03 promethazine (From Phenergan) Allergy Verified 10/13/24 20:03 ketorolac (From Toradol) AdvReac Intermediate Hypertensio Verified 10/13/24 20:03 n benzonatate AdvReac Mild Verified 10/13/24 20:03 amoxicillin AdvReac Verified 10/13/24 20:03 citalopram AdvReac Verified 10/13/24 20:03 Gadolinium-Containing AdvReac Verified 10/13/24 20:03 Contrast Medi haloperidol AdvReac Verified 10/13/24 20:03 metoclopramide (From Reglan) AdvReac Verified 10/13/24 20:03 naproxen AdvReac Verified 10/13/24 20:03 pregabalin AdvReac Verified 10/13/24 20:03 prochlorperazine AdvReac Verified 10/13/24 20:03 quetiapine AdvReac Verified 10/13/24 20:03 spironolactone AdvReac Verified 10/13/24 20:03 Patient History Medical History Restless legs Irritable bowel Headache Social History household members: spouse Smoking Status: Never smoker alcohol intake: current Smoking Status: Never smoker tobacco type: vaping alcohol intake frequency: holidays/special occasions only Exam Initial Vital Signs Initial Vital Signs: Vital Signs Temperature 99.0 F 10/14/24 19:38 Pulse Rate 88 10/14/24 19:38 Respiratory Rate 16 10/14/24 19:38 Blood Pressure 149/76 H 10/14/24 19:38 Pulse Oximetry 97 10/14/24 19:38 Oxygen Delivery Method Room Air 10/14/24 19:38 Const General: cooperative, No comfortable, acute distress, in distress and No ill appearing [facility] Head: normal to inspection, normocephalic and atraumatic Eyes General: Yes appearance normal, both eyes and all related structures Neck Neck: normal visual inspection, supple and No tender Resp Effort & Inspection: normal respiratory effort and no respiratory distress Auscultation: clear to auscultation bilaterally Cardio Rate: regular rate Rhythm: regular rhythm Heart Sounds: S1 normal and S2 normal GI Inspection: normal to inspection Palpation: soft and No tender General: No CVA tenderness Back/Spine/Pelvis Back: No CVA tenderness, No erythema, No mass and other Other: The surgical site is clean and dry and not erythematous, malodorous, warm t to the touch or draining Course Course Course Narrative: Patient had no signs or symptoms of infection and had no alarm symptoms of spinal impingement. Her pain did improve somewhat with the pain medication she was given in the ER. However, her pain is still intractable and does she will be admitted to the hospital for ongoing pain management and likely PT OT evaluation. The patient was accepted by the hospitalist Dr. Manzanares. Orders Ordered: ED Orders 10/14/24 20:15 CT abdomen pelvis wo con Stat 10/14/24 20:29 CBC Auto Diff [Complete Blood Count AUTO DIFF] Stat CMP [Comprehensive Metabolic Panel] Stat CRP [C-Reactive Protein Quant] Stat Procalcitonin Stat 10/15/24 06:00 Basic Metabolic Panel DAILY Complete Blood Count AUTO DIFF DAILY Acetaminophen (Acetaminophen 325 Mg Tablet) 650 mg PO Q6H PRN PRN Reason: Fever/Mild Pain (1-3) Hydrocodone Bitart/Acetaminophen (Hydrocodone/Acet 5/325 Tablet) 1 tab PO Q4H PRN PRN Reason: Pain, Moderate (4-6) Heparin Sodium (Porcine) (Heparin 5,000 Unit/Ml Vial) 5,000 unit SUBCUT BID ALEX Hydromorphone HCl (Hydromorphone Hcl 0.5 Mg/0.5 Ml Syringe) 1 mg IV Q2H PRN PRN Reason: Pain, Severe (7-10) Naloxone HCl (Naloxone 0.4 Mg/Ml Vial) 0.2 mg IV Q2MIN PRN PRN Reason: Opiate Reversal Ondansetron HCl (Ondansetron 4 Mg/2 Ml Inj) 4 mg IV Q8HR PRN PRN Reason: Nausea And Vomiting Discontinued Medications Hydromorphone HCl (Hydromorphone 1 Mg Inj) 1 mg IV NOW ONE Stop: 10/14/24 20:15 Last Admin: 10/14/24 20:38 Dose: 1 mg Documented By: GURPREET Vital Signs Vital signs: Vital Signs - 8 hr 10/14/24 19:38 Temperature 99.0 F Pulse Rate 88 Respiratory Rate 16 Blood Pressure 149/76 H Pulse Oximetry 97 Oxygen Delivery Method Room Air MDM - Recheck/Abnormal Lab/Rx Differential Diagnosis Differential diagnosis: Likely encounter for wound recheck and other (back pain, surgical site infection, radiculopathy, sciatica) Lab Data 10/14/24 20:29 10/14/24 20:29 Labs: Lab Results 10/14/24 Range/Units 20:29 WBC 8.4 (4.5-11.0) X10^3/uL RBC 4.28 (4.0-5.2) X10^6/uL Hgb 12.4 (12.0-16.0) g/dL Hct 36.9 (36-46) % MCV 86.2 (80-100) fL MCH 29.0 (26-34) PG MCHC 33.6 (30-36) % RDW 13.8 (11.6-14.8) % Plt Count 188 (150-400) X10^3/uL Neut % (Auto) 58.8 (50-75) % Lymph % (Auto) 28.8 (25-40) % [place] % (Auto) 7.8 (3-14) % Eos % (Auto) 3.3 (2-4) % Baso % (Auto) 1.3 (0-2) % Neut # (Auto) 4900 (0063-8457) /uL Lymph # (Auto) 2400 (1224-4499) /uL [place] # (Auto) 700 (0-900) /uL Eos # (Auto) 300 (0-450) /uL Baso # (Auto) 100 (0-100) /uL Sodium 136 L (137-145) mmol/L Potassium 4.3 (3.4-5.1) mmol/L Chloride 100 (98-107) mmol/L Carbon Dioxide 29 (22-32) mmol/L BUN 13 (7-17) mg/dL Creatinine 0.79 (0.52-1.04) mg/dL Estimated GFR > 60 (>60) mL/min BUN/Creatinine Ratio 16.5 (6-22) Glucose 150 H (70-99) mg/dL Calcium 9.2 (8.4-10.2) mg/dL Total Bilirubin 0.5 (0.2-1.3) mg/dL AST 38 H (14-36) IU/L ALT 59 H (<35) IU/L Alkaline Phosphatase 108 (38-126) U/L C-Reactive Protein 3.0 H (<1.0) mg/dL Total Protein 7.8 (6.3-8.2) g/dL Albumin 4.3 (3.5-5.0) g/dL Globulin 3.5 (1.7-4.1) g/dL Albumin/Globulin Ratio 1.2 (1.0-2.8) Procalcitonin 0.084 (<0.5) ng/mL Discharge Plan Departure Patient Disposition: Home Clinical Impression: Intractable back pain
[2024-10-14 23:30] VITALS: BP 172/101; PULSE 91; RESP 17; TEMP 36.6; O2SAT 98
[2024-10-14 23:42] VITALS: BMI 31.8
[2024-10-14] MEDS: HYDROCODONE/ACET 5/325 TABLET 1 TAB PO (23:57)
--- NOTE | 2024-10-15 01:05 | PM.HP.1 ---
History of Present Illness History of Present Illness Date Patient Seen: 10/14/24 Time Patient Seen: 23:06 Chief complaint: R Hip Pain Narrative: 58-year-old female with past medical history of hypothyroidism, restless leg syndrome, anxiety, depression and irritable bowel syndrome presents with increasing lower back pain. Per the patient's report, the patient has had surgery for her SI joint fusion 2 days ago. The patient had this done at [facility]. However after being home the patient pain was still severe despite taking oral pain medication. Her surgeon advised her to come back to ER if there is uncontrolled pain. Otherwise the patient denies any recent fever, chills, nausea, vomiting, diarrhea, chest pain, shortness of breath, dysuria or coughing. The patient states that she has severe pain and is unable to bear weight on both legs. The patient however denies any weakness or numbness in her lower extremity. In the emergency room, the patient was hemodynamically stable. CT scan of the abdomen pelvics shows postoperative changes but no acute finding otherwise. The patient was given IV Dilaudid and a request for admission for pain control with PT OT. Of note all labs were also done and was benign. [facility] Medical History Restless legs Irritable bowel Headache Social History household members: spouse Smoking Status: Never smoker alcohol intake: current Meds Home Medications and Allergies Home Medications ?Medication ?Instructions ?Recorded ?Confirmed ?Type lidocaine 5 % topical patch 1 patch topical DAILY PRN pain 02/01/21 10/14/24 Rx Held on 10/14/24. #15 ea Instructions: Change in level of care ondansetron 4 mg disintegrating 4 mg PO Q8H PRN nausea and 07/28/21 10/14/24 Rx tablet vomiting #10 tabs Held on 10/14/24. Instructions: duplicate therapy levothyroxine 200 mcg tablet 200 mcg PO DAILY 11/30/23 10/14/24 History pramipexole 0.25 mg tablet 1 mg PO ONCE PM 11/30/23 10/14/24 History tizanidine 4 mg tablet 4 mg PO BID 11/30/23 10/14/24 History Held on 10/14/24. Instructions: adverse reaction- drops blood pressure clonazepam 0.5 mg tablet 0.5 mg PO 3XD PRN anxiety 09/25/24 10/14/24 History Held on 10/14/24. Instructions: stopped by ortho doc due to valium order morphine 15 mg tablet,extended 15 mg PO Q8H pain 09/25/24 10/14/24 History release Held on 10/14/24. Instructions: allergic reaction- nightmares, GI effects semaglutide 2 mg/dose (8 mg/3 mL) 2 mg SUBCUT WEEKLY 09/25/24 10/14/24 History subcutaneous pen injector (Ozempic) hydrocodone 10 mg-acetaminophen 2 tab PO BID PRN severe back pain 09/27/24 10/14/24 Rx 325 mg tablet #20 tabs hydromorphone 2 mg tablet 2 mg PO Q6H PRN pain #20 tabs 10/03/24 10/14/24 Rx ondansetron 4 mg disintegrating 4 mg PO Q8H PRN nausea and 10/03/24 10/14/24 Rx tablet vomiting #30 tabs diazepam 5 mg tablet (Valium) 5 mg PO Q4HR PRN muscle spasm 10/14/24 10/14/24 History Allergies Allergy/AdvReac Type Severity Reaction Status Date / Time hydroxychloroquine Allergy Severe Anaphylaxis Verified 10/13/24 20:03 metaxalone (From Skelaxin) Allergy Severe Anaphylaxis Verified 10/13/24 20:03 sertraline Allergy Severe Anaphylaxis Verified 10/13/24 20:03 Sulfa (Sulfonamide Allergy Severe Anaphylaxis Verified 10/13/24 20:03 Antibiotics) tramadol Allergy Severe Anaphylaxis Verified 10/13/24 20:03 bupropion Allergy Verified 10/13/24 20:03 diphenhydramine Allergy Verified 10/13/24 20:03 duloxetine Allergy Verified 10/13/24 20:03 lamotrigine Allergy Verified 10/13/24 20:03 oxycodone Allergy Verified 10/13/24 20:03 promethazine (From Phenergan) Allergy Verified 10/13/24 20:03 ketorolac (From Toradol) AdvReac Intermediate Hypertensio Verified 10/13/24 20:03 n benzonatate AdvReac Mild Verified 10/13/24 20:03 amoxicillin AdvReac Verified 10/13/24 20:03 citalopram AdvReac Verified 10/13/24 20:03 Gadolinium-Containing AdvReac Verified 10/13/24 20:03 Contrast Medi haloperidol AdvReac Verified 10/13/24 20:03 metoclopramide (From Reglan) AdvReac Verified 10/13/24 20:03 naproxen AdvReac Verified 10/13/24 20:03 pregabalin AdvReac Verified 10/13/24 20:03 prochlorperazine AdvReac Verified 10/13/24 20:03 quetiapine AdvReac Verified 10/13/24 20:03 spironolactone AdvReac Verified 10/13/24 20:03 Review of Systems Review of Systems ROS: Yes All systems reviewed with the patient and are negative except as otherwise documented Exam Vital Signs (past 8 hours): - 10/14/24 19:38 10/14/24 23:30 Temperature 99.0 F 97.9 F Pulse Rate 88 91 H Respiratory Rate 16 17 Blood Pressure 149/76 H 172/101 H Pulse Oximetry 97 98 Oxygen Delivery Method Room Air Oxygen Flow Rate 0 Oxygen Delivery Method Room Air Oxygen Flow Rate 0 Narrative Exam Narrative: Physical Exam: GENERAL: The patient is not in any acute distressed. Awake and alert. HEENT: Nonicteric sclerae, PERRLA, EOMI. Oropharynx clear. Moist mucous membranes. Conjunctivae appear well perfused. HEART: Regular rate and rhythm without murmurs. No lower extremities edema. LUNGS: Clear to auscultation bilaterally. No wheezing, crackles or rhonchi ABDOMEN: Soft, positive bowel sounds, nontender. SKIN: No rash, no excessive bruising, petechiae, or purpura. NEUROLOGIC: AxO x 3. Cranial nerves II-XII intact without motor/sensory deficit. Objective Labs 10/14/24 20:29 10/14/24 20:29 Labs: Laboratory Results - last 24 hr 10/14/24 20:29 WBC 8.4 RBC 4.28 Hgb 12.4 Hct 36.9 MCV 86.2 MCH 29.0 MCHC 33.6 RDW 13.8 Plt Count 188 Neut % (Auto) 58.8 Lymph % (Auto) 28.8 [place] % (Auto) 7.8 Eos % (Auto) 3.3 Baso % (Auto) 1.3 Neut # (Auto) 4900 Lymph # (Auto) 2400 [place] # (Auto) 700 Eos # (Auto) 300 Baso # (Auto) 100 Sodium 136 L Potassium 4.3 Chloride 100 Carbon Dioxide 29 BUN 13 Creatinine 0.79 Estimated GFR > 60 BUN/Creatinine Ratio 16.5 Glucose 150 H Calcium 9.2 Total Bilirubin 0.5 AST 38 H ALT 59 H Alkaline Phosphatase 108 C-Reactive Protein 3.0 H Total Protein 7.8 Albumin 4.3 Globulin 3.5 Albumin/Globulin Ratio 1.2 Procalcitonin 0.084 Assessment & Plan Assessment & Plan narrative: Postop SI joint fusion with pain. Admit the patient to medical observation. Continue both oral and IV as needed pain medications. Will need PT OT in the morning. Of note CT scan abdomen pelvic shows postoperative changes but no acute finding. If there is any worsening pain can consider reaching out to patient surgeon in the morning. Hypothyroidism. Resume home Synthroid. Restless leg syndrome. Resume home medication. Anxiety and depression. Resume home medication. DVT prophylaxis heparin subcu. CODE STATUS full code. Disposition likely home versus rehab in 1 to 2 days. - As the provider of this telehealth evaluation, requested by the patient's evaluating physician, I attest that I introduced myself to the patient, provided my credentials and determined that telemedicine via a real-time, 2 way interactive audio and video platform is an appropriate and effective means of providing this service. - I reviewed the patient's chart and had a discussion with the member of the patient's treatment team. - The patient and I mutually agreed with continuation of this evaluation via telemedicine. The patient consented for the telemedicine evaluation. - This virtual encounter was taken place from [place] by Dr. Gautam Manzanares. The patient was evaluated at [facility]. The encounter was approximately 35 minutes. The nurse was present during the entire time of the encounter and was able to move the stethoscope in appropriate directions. Time-Based Coding :: [TOTAL MINUTES] spent with patient and on the chart (including review of chart, obtaining history, exam, reviewing outside data, placing orders, documenting exam and treatment plan, and counseling patient) on [DATE].
[2024-10-15] MEDS: PRAMIPEXOLE 0.25 MG TABLET 1 MG PO ×2 (01:08→21:55)
[2024-10-15 04:00] VITALS: BP 141/87; PULSE 87; RESP 17; TEMP 36.1; O2SAT 98
[2024-10-15 06:03] LABS: Add Manual Diff / Slide Review NO; Hematocrit 36.4 % (36-46); Hemoglobin 12.3 g/dL (12.0-16.0); Lymphocytes Absolute Auto 2400 /uL (1100-4500); Mean Corpuscular HGB Conc 34.0 % (30-36); Mean Corpuscular Hemoglobin 29.2 PG (26-34); Mean Corpuscular Volume 85.9 fL (80-100); Platelet Count 187 X10^3/uL (150-400)
[2024-10-15 06:28] LABS: Blood Urea Nitrogen 16 mg/dL (7-17); Calcium 9.5 mg/dL (8.4-10.2); Carbon Dioxide 25 mmol/L (22-32); Chloride 100 mmol/L (98-107); Estimated Glomerular Filt Rate > 60 mL/min (>60); Glucose 168 mg/dL (70-99); HEMOLYSIS 24 (0-50); Potassium 4.3 mmol/L (3.4-5.1); Sodium 135 mmol/L (137-145)
[2024-10-15] MEDS: LEVOTHYROXINE 100 MCG TABLET 200 MCG PO (06:46)
--- NOTE | 2024-10-15 08:11 | PM.PN.1 ---
Subjective Subjective Interval history: From night doctor: 58-year-old female with past medical history of hypothyroidism, restless leg syndrome, anxiety, depression and irritable bowel syndrome presents with increasing lower back pain. Per the patient's report, the patient has had surgery for her SI joint fusion 2 days ago. The patient had this done at [facility]. However after being home the patient pain was still severe despite taking oral pain medication. Her surgeon advised her to come back to ER if there is uncontrolled pain. Otherwise the patient denies any recent fever, chills, nausea, vomiting, diarrhea, chest pain, shortness of breath, dysuria or coughing. The patient states that she has severe pain and is unable to bear weight on both legs. The patient however denies any weakness or numbness in her lower extremity. In the emergency room, the patient was hemodynamically stable. CT scan of the abdomen pelvics shows postoperative changes but no acute finding otherwise. The patient was given IV Dilaudid and a request for admission for pain control with PT OT. Of note all labs were also done and was benign. S: She was doing little bit better today. Still having significant pain, but improved and described as controlled. She has been having a fair amount of sacral pain since her procedure. Any standing or sitting increase his pressure on her SI joints in his increase the pain. No bowel or bladder dysfunction or leg weakness or numbness. Exam Vital Signs (past 8 hours): - 10/15/24 04:00 Temperature 97.0 F L Pulse Rate 87 Respiratory Rate 17 Blood Pressure 141/87 H Pulse Oximetry 98 Oxygen Flow Rate 0 Oxygen Delivery Method Room Air Oxygen Flow Rate 0 Narrative Exam Narrative: NAD, alert and oriented. Fluent speech. Lungs are clear, normal rate and effort. Heart is regular, no murmur gallop or rub. Abdomen is soft, non distended. Extremities are free of edema. Objective Imaging CT scan - abdomen: Radiologist's impression: Interval revision of right sacroiliac hardware as described. Areas of osseous fragmentation, suspected to be postsurgical. Additional areas air and scattered fluid are present likely postsurgical. Developing phlegmon or abscess cannot be definitively excluded as evaluation is limited without contrast. However, no grossly organized fluid collection is identified. Labs 10/15/24 05:35 10/15/24 05:35 Labs: Laboratory Results - last 24 hr 10/14/24 10/15/24 20:29 05:35 WBC 8.4 7.5 RBC 4.28 4.23 Hgb 12.4 12.3 Hct 36.9 36.4 MCV 86.2 85.9 MCH 29.0 29.2 MCHC 33.6 34.0 RDW 13.8 14.0 Plt Count 188 187 Neut % (Auto) 58.8 53.6 Lymph % (Auto) 28.8 32.3 [place] % (Auto) 7.8 9.4 Eos % (Auto) 3.3 3.9 Baso % (Auto) 1.3 0.8 Neut # (Auto) 4900 4000 Lymph # (Auto) 2400 2400 [place] # (Auto) 700 700 Eos # (Auto) 300 300 Baso # (Auto) 100 100 Sodium 136 L 135 L Potassium 4.3 4.3 Chloride 100 100 Carbon Dioxide 29 25 BUN 13 16 Creatinine 0.79 0.69 Estimated GFR > 60 > 60 BUN/Creatinine Ratio 16.5 23.2 H Glucose 150 H 168 H Calcium 9.2 9.5 Total Bilirubin 0.5 AST 38 H ALT 59 H Alkaline Phosphatase 108 C-Reactive Protein 3.0 H Total Protein 7.8 Albumin 4.3 Globulin 3.5 Albumin/Globulin Ratio 1.2 Procalcitonin 0.084 [facility] Medical History Restless legs Irritable bowel Headache Social History household members: spouse Smoking Status: Never smoker alcohol intake: current Assessment & Plan Assessment & Plan narrative: 1. Postop SI joint fusion with pain. Improving. 2. Hypothyroidism. Stable. 3. Restless leg syndrome. Stable. 4. Anxiety and depression. Stable. PLAN: -pain control with IV Dilaudid we will continue her oral hydrocodone which she takes typically. -monitor for signs of infection. DVT prophylaxis heparin SQ CODE STATUS full code. Disposition likely home versus rehab in 1 to 2 days. Time-Based Coding :: [TOTAL MINUTES] spent with patient and on the chart (including review of chart, obtaining history, exam, reviewing outside data, placing orders, documenting exam and treatment plan, and counseling patient) on [DATE].
[2024-10-15] MEDS: HEPARIN 5,000 UNIT/ML VIAL 5000 UNIT SUBCUT ×2 (08:44→21:55)
[2024-10-15 10:54] VITALS: BP 130/85; PULSE 88; RESP 18; TEMP 36.3; O2SAT 96
[2024-10-15] MEDS: HYDROMORPHONE 2 MG TABLET PO (12:22)
--- NOTE | 2024-10-15 14:19 | CM.DANOTE ---
Initial DCP Assessment Note Pt is a 58 yo female, resident of [place], arrives with intractable pain, two days out from a spinal revision by Yoruba spinal physician Dr. Suh - original spinal surgery was in May of this year. Patient admitted OBS for pain management and PT/OT. PCP: Enrike Grace: LETICIA Reviewed chart, pt discussed in multidisciplinary rounds this morning. Patient expected to remain here this evening, possible discharge tomorrow. Patient lives independently with sp; poor activity tolerance due to chronic back pain and recent surgical repair. No barriers identified at this time to patient's safe discharge home w/family to assist; close outpatient f/u recommended. CM team will plan to follow clinical course closely in case any DC needs or concerns arise. MIHIR Maddox Discharge Planning/Care Management CM Discharge Assessment Start: 10/14/24 22:49 Freq: Status: Active Protocol: Document 10/15/24 14:17 JAZZY (Rec: 10/15/24 14:18 JAZZY [id number]) Discharge Planning Assessment Assigned Discharge MIHIR Lawler [employer] Conveyor Operator DPOA/Assigned Santo Abdullahi, spouse Designee Name Contact Information [phone] Advance Directives? No History Provided By Patient,Medical Record Has Patient been Yes admitted in last 30 days? Prior Living House Arrangements Household Members spouse Type of Relies on Others transporation used prior to admit Independent with ADL Yes 's Is patient alert and Yes oriented? Needs Assistance Meal Prep,Managing Medications,Home Chores / Shopping With Comment Poor activity tolerance, chronic back pain. Comment Home Comment Management of pain. Discharge Plan Home Transportation Spouse Arrangement Referrals Initiated None needed
[2024-10-15] MEDS: HYDROMORPHONE 2 MG TABLET 4 MG PO ×2 (16:28→23:34)
[2024-10-15 19:00] VITALS: BP 133/73; PULSE 94; RESP 16; TEMP 36.5; O2SAT 99
[2024-10-15] MEDS: HYDROMORPHONE 2 MG INJ IV (19:50)
[2024-10-16] MEDS: HYDROMORPHONE 2 MG INJ IV ×9 (00:46→23:05)
[2024-10-16 04:00] VITALS: BP 111/72; PULSE 82; RESP 15; TEMP 36.6; O2SAT 95
[2024-10-16] MEDS: LEVOTHYROXINE 100 MCG TABLET 200 MCG PO (05:53)
--- NOTE | 2024-10-16 07:34 | P.PN_ITS ---
Subjective Subjective Interval history: Summary: Patient was a 58-year-old female with chronic back pain and sacral insufficiency fractures with a previous stabilize him procedure done. She was admitted here several weeks ago with acute on chronic back pain and there was evidence of migration of her SI joint hardware. She was discussed with her surgeon in [place] and he arranged for relatively rapid follow up after discharge from [facility]. She underwent a revision of her SI joint fixation bilaterally on Saturday and now presents with postoperative back pain. S: She was having a lot of pain. This is all lower back. She also has some degree of radiation of pain to the right leg, this is happened in the past. No bowel or bladder dysfunction. No numbness weakness of legs. Exam Vital Signs (past 8 hours): - 10/16/24 04:00 Temperature 97.8 F Pulse Rate 82 Respiratory Rate 15 Blood Pressure 111/72 Pulse Oximetry 95 Oxygen Flow Rate 0 Oxygen Delivery Method Room Air Oxygen Flow Rate 0 Narrative Exam Narrative: NAD, alert and oriented. Fluent speech. Lungs are clear, normal rate and effort. Heart is regular, no murmur gallop or rub. Abdomen is soft, non distended. Extremities are free of edema. Objective Labs 10/15/24 05:35 10/15/24 05:35 [facility] Medical History Restless legs Irritable bowel Headache Social History household members: spouse Smoking Status: Never smoker alcohol intake: current Assessment & Plan Assessment & Plan narrative: 1. Postop SI joint fusion with pain. Improving. 2. Hypothyroidism. Stable. 3. Restless leg syndrome. Stable. 4. Anxiety and depression. Stable. PLAN: -pain control with IV Dilaudid we will schedule her oral hydrocodone. -add a lidocaine patch to her lower back -MRI LS spine to further evaluate the fluid collection near her LR joint fixation devices. She was postoperative day 4. -monitor for signs of infection. Time-Based Coding :: [TOTAL MINUTES] spent with patient and on the chart (including review of chart, obtaining history, exam, reviewing outside data, placing orders, documenting exam and treatment plan, and counseling patient) on [DATE].
[2024-10-16 08:00] VITALS: BP 128/80; PULSE 83; RESP 20; TEMP 36.2; O2SAT 95
[2024-10-16] MEDS: HYDROMORPHONE 2 MG TABLET 4 MG PO ×2 (08:23→20:46)
[2024-10-16] MEDS: HEPARIN 5,000 UNIT/ML VIAL 5000 UNIT SUBCUT ×2 (09:05→20:46)
[2024-10-16] MEDS: ONDANSETRON 4 MG/2 ML INJ IV (10:39)
[2024-10-16] MEDS: SENNOSIDES 8.6 MG TABLET PO (10:56)
--- NOTE | 2024-10-16 11:41 | DI.MRI.S_ITS ---
PROCEDURE: MR LUMBAR SPINE WO/W CON INDICATIONS: back pain S/P SI joint fixation TECHNIQUE: Noncontrast sagittal T1 spin echo and T2 fast spin echo, sagittal STIR, axial T1 and T2 fast spin echo through the lumbar spine. In cases with scoliosis, additional coronal T2 fast spin echo may be performed. After the administration of contrast, sagittal and axial T1 spin echo with fat saturation through the lumbar spine. COMPARISON: None. FINDINGS: Image quality: Excellent. Alignment and curvature: There is normal bony alignment. Marrow: Marrow is of normal overall signal. No acute vertebral body compression fractures. No suspicious marrow enhancement. Spinal cord: Conus medullaris terminates at the L1 level. Visualized spinal cord demonstrates normal signal, without suspicious enhancement. Paraspinous soft tissues: No paravertebral masses or abnormal enhancement. T12-L1: No foraminal or central canal stenosis. L1-L2: No foraminal or central canal stenosis. L2-L3: No foraminal or central canal stenosis. L3-L4: Mild circumferential disc bulge. No foraminal or central canal stenosis. L4-L5: Mild circumferential disc bulge. Mild facet arthropathy. Mild bilateral foraminal stenosis. L5-S1: Minor broad-based disc bulge. Mild right foraminal stenosis. Right sacroiliac joint fusion device is present is seen on prior CT resulting in mild artifact. Distal to this in the right posterior iliac, there is erosion of normal posterior cortex and SI joint echotexture, and this is replaced by a T2 hyperintense, peripherally enhancing fluid collection measuring about 2.7 x 2.4 cm with extension into the overlying dorsal soft tissue about 2.1 cm, nearly to the skin surface. Mild edema in the sacrum and iliac, and extending into the right gluteus muscles. IMPRESSION: Just distal to the fixation point in the right SI joint, there is osseous edema, cortical erosion, and of fluid collection in the joint and in the overlying soft tissue suspicious for an abscess although a sterile seroma may be present. Recommend reopening the incision and drainage. No lumbar spine abnormality. Dictated by: Bela Magallon M.D. on 10/16/2024 at 19:47 Approved by: Bela Magallon M.D. on 10/16/2024 at 19:57
[2024-10-16] MEDS: LIDOCAINE 5% PATCH 1 EACH TOP (13:35)
[2024-10-16 14:00] VITALS: BP 137/92; PULSE 92; RESP 16; TEMP 36.6; O2SAT 94
[2024-10-16] MEDS: HYDROCODONE/ACET 10/325 TABLET 2 TAB PO (15:15)
[2024-10-16 20:08] VITALS: BP 124/72; PULSE 88; RESP 18; TEMP 36.4; O2SAT 94
[2024-10-16] MEDS: PRAMIPEXOLE 0.25 MG TABLET 1 MG PO (20:50)
[2024-10-16] MEDS: ONDANSETRON 4 MG ODT PO (21:09)
[2024-10-17] MEDS: HYDROMORPHONE 2 MG INJ IV ×4 (02:23→16:32)
[2024-10-17 05:22] VITALS: BP 129/64; PULSE 84; RESP 16; O2SAT 97
--- NOTE | 2024-10-17 07:55 | P.PN_ITS ---
Subjective Subjective Date Patient Seen: 10/17/24 Interval history: She continues to have low back pain and left leg weakness/movement avoidance related to the pain. MRI scan shows a fluid collection at the bottom of the sacral surgical site. This was reviewed with her back surgeon, Dr. Suh who suggested inpatient rehab. He reviewed the MRI scan and felt that the fluid seen was expected postoperative type seroma. The white blood count was 6.5 with sed rate of 46 and CRP of 15. She has no fevers. The glucose was 168. She was discussed several times with Dr. Suh as we developed a plan today. She has been able to move around but guards the left leg quite significantly. She will need PT and OT evaluations to qualify for inpatient rehab. She remains dependent today on IV Dilaudid and will try to get by an oral medication so we can move along with her treatment either home or inpatient rehab soon. Exam Vital Signs (past 8 hours): - 10/17/24 05:22 Pulse Rate 84 Respiratory Rate 16 Blood Pressure 129/64 Pulse Oximetry 97 Oxygen Flow Rate 0 Oxygen Delivery Method Room Air Oxygen Flow Rate 0 Narrative Exam Narrative: Alert and oriented x3. Mild distress from left leg and back pain. Heart is regular rate and rhythm without murmur Lungs are clear to auscultation bilaterally Extremities have no ankle edema The left sacral incision at the top of the buttock crease is healing well without signs of dehiscence, swelling, infection, discharge or redness. Objective Labs 10/15/24 05:35 10/15/24 05:35 [facility] Medical History Restless legs Irritable bowel Headache Social History household members: spouse Smoking Status: Never smoker alcohol intake: current Assessment & Plan Assessment & Plan narrative: 1. Postop SI joint fusion with back and left leg pain. Improving steadily. Seroma on MRI. 2. Hypothyroidism. Stable. 3. Restless leg syndrome. Stable. 4. Anxiety and depression. Stable. PLAN: -pain control with IV Dilaudid, transition to oral Dilaudid and oral hydrocodone. -lidocaine patch to her lower back -POD #5 D/W Dr. Suh at [phone]. He reviewed the labs and MRI films and feels that the fluid collection on the MR is a seroma. -he recommends admission to inpatient rehab as she has been very slow to mobilize with her leg pain. PT and OT evals to be done. -monitor for signs of infection. Time-Based Coding :: [TOTAL MINUTES] spent with patient and on the chart (including review of chart, obtaining history, exam, reviewing outside data, placing orders, documenting exam and treatment plan, and counseling patient) on [DATE].
[2024-10-17] MEDS: HYDROMORPHONE 2 MG TABLET 4 MG PO ×3 (08:09→20:54)
[2024-10-17] MEDS: HEPARIN 5,000 UNIT/ML VIAL 5000 UNIT SUBCUT ×2 (08:20→20:55)
[2024-10-17] MEDS: SENNOSIDES 8.6 MG TABLET PO (08:20)
[2024-10-17] MEDS: LEVOTHYROXINE 100 MCG TABLET 200 MCG PO (08:20)
[2024-10-17] MEDS: SODIUM CHLORIDE 0.9% FLUSH 10 ML IV ×2 (09:33→20:55)
[2024-10-17] MEDS: HYDROCODONE/ACET 10/325 TABLET 2 TAB PO (11:32)
[2024-10-17 12:30] LABS: Add Manual Diff / Slide Review NO; Hematocrit 35.5 % (36-46); Hemoglobin 12.0 g/dL (12.0-16.0); Lymphocytes Absolute Auto 1700 /uL (1100-4500); Mean Corpuscular HGB Conc 33.7 % (30-36); Mean Corpuscular Hemoglobin 28.8 PG (26-34); Mean Corpuscular Volume 85.5 fL (80-100); Platelet Count 203 X10^3/uL (150-400)
[2024-10-17 12:46] LABS: Hemoglobin A1C% w Est Avg Glu 5.9 % (4.0-6.0)
[2024-10-17 14:39] VITALS: BP 141/81; PULSE 90; RESP 14; TEMP 36.3; O2SAT 95
--- NOTE | 2024-10-17 15:14 | CM.DPNOTE ---
DCP Cont According to Dr Sanchez, patient's spine doctor, Dr Suh, recommends discharge to inpatient acute rehab. Referral sent via email to Lee Ann at [facility] inpatient acute rehab- checking on bed availability and if she feels patient may meet criteria. Insurance: [facility]. There are no therapy notes yet, PT/OT have been ordered; those will need to be sent when available. Still to do: review this plan with patient, get preference. Dr Suh- spine doctor, is in the [facility] system. JW
--- NOTE | 2024-10-17 16:15 | PT.IIE ---
Current Diagnoses Other acute postprocedural pain (10/16/24) Medical History (Last Reviewed 10/15/24 @ 08:11 by Antonio Krause MD) Headache Irritable bowel Restless legs Physical Therapy Inpatient Evaluation/Re-Eval M1 PT/OT-IP Prior Functional Status Start: 10/17/24 17:19 Freq: NEEDED Status: Active Protocol: Document 10/17/24 16:15 AB (Rec: 10/17/24 17:55 AB Desktop) Medical Review Prior Functional Status Medical History Yes Reviewed Communication able to make needs known Mobility and Gait pt stated that she was having difficulty with mobilities/ambulation for the last 6 months due to back pain. pt has been using a FWW for ambulation and spouse assists pt with dressing and shower needs. Social History Household Members spouse Living Arrangements House Number of Floors ( One Floor Floors) Number of Stairs To pt stated that she can go around the house and has a Enter/Railing? ramp to enter from the back door front door has 2 steps without rails to enter Home Environment Standard Height Toilet,Walk in Shower Home Equipment Front Wheel Walker,Straight Cane,Shower Seat without Backrest,Hand Held Shower Additional Social spouse works and will not be able to provide consistent History Comment assistance per pt M2 PT-IP Current Condition Start: 10/17/24 17:19 Freq: NEEDED Status: Active Protocol: Document 10/17/24 16:15 AB (Rec: 10/17/24 17:55 AB Desktop) Physical Therapy Current Condition Current Condition Evaluation Date 10/17/24 Treatment Diagnosis intractable back pain; difficulty in walking Onset Date 10/16/24 M3 PT-IP Subjective Start: 10/17/24 17:19 Freq: NEEDED Status: Active Protocol: Document 10/17/24 16:15 AB (Rec: 10/17/24 17:55 AB Desktop) Subjective Physical Therapy Visit Type Type Initial Evaluation Visit Start Time 16:15 Visit Stop Time 17:20 Number of [employer] Visits 0 Physical Therapy Visit Comments Patient Comments agreeable to do PT Therapy Pain Assessment Pain When Pain Assessed At Rest Pain Present Pain Present Pain Reported Location Right Groin Intensity 9 Scale Used Numeric (0 - 10) Pain Behaviors Guarding Pain Management Distraction,Modification of Treatment,Re-positioning, Techniques Timing of Activity with Medications M4 PT-IP Mobility and Gait Start: 10/17/24 17:19 Freq: NEEDED Status: Active Protocol: Document 10/17/24 16:15 AB (Rec: 10/17/24 17:55 AB Desktop) PT-Bed Mobility Assessment Supine to Sit Supine to Sit Standby Assistance,Head of Bed Elevated,Bedrails Sit to Supine Sit to Supine Standby Assistance,Head of Bed Elevated,Bedrails PT-Transfer Assessment Sit to and From Stand Sit to and from Contact Guard Assistance,1 Person Assistance,Use of Stand Upper Extremities Equipment Transfer Assistive Large Based Quad Cane Device Orthotic/Prosthetic No Devices or Brace: Transfers Transfer Destination Bed,Chair Transfer Technique ambulated Transfer Ability Level of Assist Contact Guard Assistance,1 Person Assistance,Use of Upper Extremities Comments Mobility Comments pt in bed and agreed to do PT. pt stated that she has SI fusion in May but was unsuccessful and just had a revision last saturday10/12/24. pt stated that the surgeon told her that she is NWB for 1 week. Clarified weight bearing status with hospitalist and informed PT that he talked with the surgeon and pt is WBAT. Obtained PLOF and home set up. educated pt on back precaution. pt can be impulsive. pt completed supine to sit SBA with HOB elevated. pt used BLE to move her LLE to EOB. pt refused use of safety belt. sit to stand CGA with tendency of pt to pull on FWW to get up. pt ambulated ~ 25 ft using FWW CGA and requested to sit on window bench to rest. pt unable to put much weight on RLE and also tends to drag RLE to move. sit to stand from bench CGA and requested to go back to bed. pt ambulated back to the bed CGA using FWW. able to complete sit to supine HOB elevated. pt used UE to elevate RLE into the bed. pt tends to direct her own care and did not complete log roll bed mobility as instructed. positioned pt in bed and set up for dinner. call light and table placed within reach. Hospitalist informed PT that pt's surgeon wants her to go to rehab. informed pt and pt stated that she wants to go home. informed pt regarding safety, 24/7 assistance needed and DME needs (w/c) if she wants to go home. pt understood. Gait Assessment Gait Gait Assistance Contact Guard Assist Required: Distance (Feet) 25 Able to Maintain Yes Weight Bearing Status During Gait Assistive Devices Assistive Device Front Wheeled Walker Orthotic/Prosthetic No Devices or Brace: Gait Deviations General Gait Pattern Decreased Stride Length,Decreased Feet Clearance Factors Limiting Gait Function Factors Limiting Decreased Activity Tolerance,Decreased Sensation, Gait Function Decreased Strength,Limited Range of Motion,Pain,Poor Balance,Poor Safety Awareness PT-Balance Assessment Sitting Balance and Reactions Static Sitting Normal Balance Ability Dynamic Sitting Good Balance Ability Standing Balance and Reactions Static Standing Fair Balance Ability Dynamic Standing Fair Balance Ability Device Used FWW M5 PT-IP Objective Assessments Start: 10/17/24 17:19 Freq: NEEDED Status: Active Protocol: Document 10/17/24 16:15 AB (Rec: 10/17/24 17:55 AB Desktop) Orientation Orientation/Cognition Level of Alertness Alert Orientation Name,Place,Situation Safety Awareness Decreased Safety Awareness Memory Description No Deficits Noted Gross Range of Motion Lower Extremity ROM Assessment Right Impaired Impairments limited due to c/o pain Strength Lower Extremity Strength Assessment Right Impaired Hip 3-/5 Knee 3+/5 Sensation Assessment Sensation Gross Sensation Right LE Impaired Sensation Numbness Description Comments Sensation Comments R lateral thigh numbness per pt Muscle Tone Muscle Tone WNL Yes M6 PT-IP Treatment Start: 10/17/24 17:19 Freq: NEEDED Status: Active Protocol: Document 10/17/24 16:15 AB (Rec: 10/17/24 17:55 AB Desktop) Physical Therapy Treatment Education Education Provided Precautions,Weight Bearing Status,Safety M7 PT-IP Assessment and Plan Start: 10/17/24 17:19 Freq: NEEDED Status: Active Protocol: Document 10/17/24 16:15 AB (Rec: 10/17/24 17:55 AB Desktop) PT Summary Assessment and Plan Potential Rehabilitation Fair Potential Status of Condition Evolving at Evaluation Summary Impairments Pain,ROM,Strength,Balance,Coordination,Sensation, Cognition,Bed Mobility,Transfers,Gait,Activity Tolerance Assessment Summary Pt is a 58 y/o F admitted for intractable back pain. pt with h/o laminectomy and R SI joint fusion POD 5. imaging showed R SI joint seroma. pt with c/o increase R groin pain affecting mobility and weight bearing on RLE. pt requiring CGA with mobility using FWW and only able to ambulate ~ 25 ft today. pt will benefit from SNF rehab but pt wants to go home. If pt goes home, she will require 24/7 assist and HHPT. will continue to assess progress. Goals Bed Mobility Goal Independent Transfer Goal Independent,Front Wheeled Walker Gait Goal Independent,Front Wheel Walker Gait Distance 100 Other Goals improve ambulation using FWW ~ 150 ft mod I Days to Meet Goals 10 Frequency of Treatment Frequency Of Once a Day Treatment Treatment Plan Physical Therapy Bed Mobility Training,Transfer Training,Gait Training, Treatment Plan Therapeutic Exercise,Balance Retraining,Post Op Education,Discharge Planning,Hot or Cold Pack, Neuromuscular Re-ed,Coordination Retraining,Manual Therapy Precautions Lumbar Precautions Log Roll,No Twisting,Limit Bending,Lifting Restriction of 10 lbs Weight Bearing Status Weight Bearing Weight Bear as Tolerated Status Allowed Weight RLE WBAT Bearing Amount ( enter % or #) (%) Recommendations To Nursing Amount of Assist 1 Person Assist Needed Discharge Recommendations PT Discharge Home with 24/7 Assist Available,Home Health,SNF Rehab, Recommendations Home vs SNF Equipment Needed for w/c Home Before Discharge Transportation Needs Private Vehicle,Wheelchair/Cabulance at Discharge - PT assist 1
[2024-10-17] MEDS: ONDANSETRON 4 MG ODT PO (18:19)
[2024-10-17 20:54] VITALS: BP 131/80; PULSE 83; RESP 16; TEMP 36.1; O2SAT 96
[2024-10-17] MEDS: PRAMIPEXOLE 0.25 MG TABLET 1 MG PO (20:55)
[2024-10-18] MEDS: HYDROMORPHONE 2 MG INJ IV (03:08)
[2024-10-18] MEDS: LEVOTHYROXINE 100 MCG TABLET 200 MCG PO (04:47)
[2024-10-18] MEDS: HYDROMORPHONE 2 MG TABLET 4 MG PO ×2 (04:48→13:03)
[2024-10-18] MEDS: ONDANSETRON 4 MG/2 ML INJ IV (06:10)
[2024-10-18] MEDS: HYDROCODONE/ACET 10/325 TABLET 2 TAB PO (06:14)
--- NOTE | 2024-10-18 07:41 | P.DS_ITS ---
History of Present Illness History of Present Illness Date Patient Seen: 10/18/24 Chief complaint: R Hip Pain Narrative: 58-year-old female with past medical history of hypothyroidism, restless leg syndrome, anxiety, depression and irritable bowel syndrome presents with increasing lower back pain. Per the patient's report, the patient has had surgery for her SI joint fusion 2 days ago. The patient had this done at [facility]. However after being home the patient pain was still severe despite taking oral pain medication. Her surgeon advised her to come back to ER if there is uncontrolled pain. Otherwise the patient denies any recent fever, chills, nausea, vomiting, diarrhea, chest pain, shortness of breath, dysuria or coughing. The patient states that she has severe pain and is unable to bear weight on both legs. The patient however denies any weakness or numbness in her lower extremity. In the emergency room, the patient was hemodynamically stable. CT scan of the abdomen pelvics shows postoperative changes but no acute finding otherwise. The patient was given IV Dilaudid and a request for admission for pain control with PT OT. Of note all labs were also done and was benign. Discharge Providers Provider Date of admission: 10/16/24 10:24 Discharge Date: 10/18/24 Primary care physician: Enrike Carvajal PA-C Consults: 10/17/24 13:29 Consult to Occupational Therapy Evaluate & Treat Comment: Physician Instructions: Evaluate and treat Consult to Physical Therapy Evaluate & Treat Comment: Physician Instructions: Evaluate and Treat Discharge provider: Jennifer Sanchez MD Summary Hospital Course Hospital Course: 1. Postop SI joint fusion with back and left leg pain. Improving steadily. Seroma on MRI. 2. Hypothyroidism. 3. Restless leg syndrome. 4. Anxiety and depression. The patient declines a referral to inpatient rehab as suggested by her spine surgeon. She feels that her cousin, who is a hospice PT, will be able to arrange home health PT for her. Besides her cousin helping her she says that her daughter will move in with her and help her at home. She feels like she will be able to get by on oral Dilaudid at home despite still requesting IV Dilaudid here at least twice a day. No signs of infection or other mishap from her surgery. -POD #6 D/W Dr. Suh at [phone]. He reviewed the labs and MRI films and feels that the fluid collection on the MR is a seroma. -he recommends admission to inpatient rehab as she has been very slow to mobilize with her leg pain. PT and OT. Status at Discharge Cognitive/behavioral status at discharge: at baseline, oriented Functional status at discharge: uses cane/walker Overall status at discharge: patient is progressing back to baseline Exam Vital Signs (past 8 hours): Oxygen Delivery Method Room Air Oxygen Flow Rate 0 Narrative Exam Narrative: Alert and oriented x3. No over sedation noted. No apparent distress Heart is regular rate and rhythm without murmur. Extremities have no ankle edema Back incision looks well healed without signs of infection or dehiscence. Objective Labs 10/17/24 11:20 10/15/24 05:35 Labs: Laboratory Results - last 24 hr 10/17/24 11:20 WBC 6.1 RBC 4.15 Hgb 12.0 Hct 35.5 L MCV 85.5 MCH 28.8 MCHC 33.7 RDW 13.2 Plt Count 203 Neut % (Auto) 59.8 Lymph % (Auto) 27.4 [place] % (Auto) 8.3 Eos % (Auto) 3.6 Baso % (Auto) 0.9 Neut # (Auto) 3600 Lymph # (Auto) 1700 [place] # (Auto) 500 Eos # (Auto) 200 Baso # (Auto) 100 ESR 46 H Hemoglobin A1c 5.9 C-Reactive Protein 1.5 H PFSH Medical History Restless legs Irritable bowel Headache Social History household members: spouse Smoking Status: Never smoker alcohol intake: current Discharge Plan Discharge Plan Patient Disposition: Home Provider Discharge Comment: Follow up with Dr. Suh next week Discharge orders & Medications Prescriptions: New sennosides [senna] 8.6 mg Tablet 8.6 mg PO DAILY Qty: 30 0RF polyethylene glycol 3350 17 gram Powder In Packet 17 gm PO DAILY Qty: 30 0RF Continued lidocaine 5 % adhesive patch,medicated 1 patch topical DAILY PRN (Reason: pain ) Qty: 15 0RF Rx Instructions: leave on most painful area for up to 12 hrs ondansetron 4 mg tablet,disintegrating 4 mg PO Q8H PRN (Reason: nausea and vomiting) Qty: 10 0RF pramipexole 0.25 mg tablet 1 mg PO ONCE PM levothyroxine 200 mcg tablet 200 mcg PO DAILY hydromorphone 2 mg tablet 2 mg PO Q6H PRN (Reason: pain) Qty: 20 0RF ondansetron 4 mg tablet,disintegrating 4 mg PO Q8H PRN (Reason: nausea and vomiting) Qty: 30 0RF clonazepam 0.5 mg tablet 0.5 mg PO 3XD PRN (Reason: anxiety) Ozempic 2 mg/dose (8 mg/3 mL) pen injector 2 mg SUBCUT WEEKLY hydrocodone-acetaminophen 10-325 mg tablet 2 tab PO BID PRN (Reason: severe back pain) Qty: 20 0RF diazepam [Valium] 5 mg tablet 5 mg PO Q4HR PRN (Reason: muscle spasm) Rx Instructions: 5 mg orally PRN; Discontinued tizanidine 4 mg tablet 4 mg PO BID Patient Comments: takes 1 x daily generally, prescribed to take 2 x daily if needed can morphine 15 mg tablet extended release 15 mg PO Q8H Follow up/Referrals: Enrike Carvajal PA-C [Primary Care Provider, Medical] Diet/Activity/Treatments Diet: Regular Visit Report/Discharge Packet Stand Alone Forms: Patient Portal/API, Stroke Signs & Symptoms Discharge Data Primary Care Provider: Enrike Carvajal
[2024-10-18 08:00] VITALS: BP 126/77; PULSE 80; RESP 15; TEMP 36; O2SAT 97
[2024-10-18] MEDS: LIDOCAINE 5% PATCH 1 EACH TOP (09:26)
[2024-10-18] MEDS: HEPARIN 5,000 UNIT/ML VIAL 5000 UNIT SUBCUT (09:26)
[2024-10-18] MEDS: SODIUM CHLORIDE 0.9% FLUSH 10 ML IV (09:27)
[2024-10-18] MEDS: SENNOSIDES 8.6 MG TABLET PO (09:27)
--- NOTE | 2024-10-18 11:09 | PC.NURSE ---
Patient is going to be discharging home today, she has asked to have an iv dilaudid before she leaves. She complained of being dizzy and nauseated. VSS and patient ordered door dash and was eating her breakfast. She is using the walker to ambulate and is comfortable at this time.
--- NOTE | 2024-10-18 14:15 | CM.DPNOTE ---
DCP note [employer]ICATING SUPERVISOR reviewed EMR per provider, likely dc home today per pt request. denies/refuses inpt rehab. [employer] F[employer]ICATING SUPERVISOR attempted to meet with pt in room, pt already discharged. unable to meet with her re: HH PT. per provider notes, pt reports she has family that can assist getting HH PT arranged. P: Home today with OP f/u. CM team will continue to follow as needed for DCP coordination MIHIR Martínez
== END 2024-10-18 13:23 | disposition home health service (06) | DRG 948 ==
LOC: ED 19:47 → AC 22:19
PROVIDERS: Family Medicine; Admitting Provider Internal Medicine; Emergency Provider Emergency Medicine; PCP Student in an Organized Health Care Education/Training Program; Referring Provider Emergency Medicine; Visit Provider Internal Medicine
DX: G89.18 Other acute postprocedural pain (principal); M96.842 Postprocedural seroma of a musculoskeletal structure following a musculoskeletal system procedure; G25.81 Restless legs syndrome; E03.9 Hypothyroidism, unspecified; F41.9 Anxiety disorder, unspecified; F32.A Depression, unspecified; Z79.85 Long-term (current) use of injectable non-insulin antidiabetic drugs; Z98.1 Arthrodesis status; Z79.890 Hormone replacement therapy
CPT/HCPCS: 36415; 72158; 74176; 80048; 80053; 83036; 84145; 85025; 85651; 86140; 96374; 97162; 97530; 99283; 99284; G0378; J1171; J1644; J2405

== ENCOUNTER 2025-03-03 17:44 | Emergency (ER) | payer MEDICARE, SELFPAY ==
[2025-03-03] VITALS (12 sets, daily range): BP systolic 159–208; BP diastolic 92–115; PULSE 80–89; RESP 16–17; TEMP 36.6; O2SAT 96–99; BMI 32.9
--- NOTE | 2025-03-03 18:26 | ED_ITS ---
HPI - Extremity Injury (Lower) General Chief Complaint: Extremity Injury, Lower Stated Complaint: post surgery, trauma to surgical site Time Seen by Provider: 03/03/25 17:52 Source: patient Mode of arrival: Wheelchair History of Present Illness HPI Narrative: 59-year-old female history of chronic back pain status post L4-L5 laminectomy and SI joint surgical intervention done back in May 2024 in [place] with the original surgeon for which patient saw a 2nd back surgeon Dr. Suh a revision surgery with a new device implantation presents with right-sided back pain for 2 weeks now after accidental contact with her dog and has since had pain. She was seen at would be ER the day after the injury work CT scan of the pelvis and lumbar spine were completed by do not have access to the results but was prescribed Vicodin but at this time is still in significant pain. She reports right-sided back pain radiating down the legs numbness and tingling. She did try to get a hold of Dr. Suh but as an exit unsuccessful and has an appointment on 03/10/2025. She denies any fever, chills, chest pain, shortness of breath, bowel or bladder incontinence, gait instability. Other than what is stated 14 point review of system is negative Related Data Home Medications ?Medication ?Instructions ?Recorded ?Confirmed levothyroxine 200 mcg tablet 200 mcg PO DAILY 11/30/23 10/14/24 pramipexole 0.25 mg tablet 1 mg PO ONCE PM 11/30/23 clonazepam 0.5 mg tablet 0.5 mg PO 3XD PRN anxiety 10/14/24 semaglutide 2 mg/dose (8 mg/3 mL) 2 mg SUBCUT WEEKLY 0 09/25/24 10/14/24 subcutaneous pen injector (Ozempic) diazepam 5 mg tablet (Valium) 5 mg PO Q4HR PRN muscle spasm 10/14/24 10/14/24 Previous Rx's ?Medication ?Instructions ?Recorded lidocaine 5 % topical patch 1 patch topical DAILY PRN pain 02/01/21 #15 ea ondansetron 4 mg disintegrating 4 mg PO Q8H PRN nausea and 07/28/21 tablet vomiting #10 tabs hydrocodone 10 mg-acetaminophen 2 tab PO BID PRN sever e back pain 09/27/24 325 mg tablet #20 tabs hydromorphone 2 mg tablet 2 mg PO Q6H PRN pain #20 tab s 10/03/24 ondansetron 4 mg disintegrating 4 mg PO Q8H PRN nausea and 10/03/24 tablet vomiting #30 tabs polyethylene glycol 3350 17 gram 17 gm PO DAILY #30 ea 10/18/24 oral powder packet sennosides 8.6 mg tablet (senna) 8.6 mg PO DAILY #30 t abs 10/18/24 hydromorphone 2 mg tablet 2 mg PO Q6H PRN pain #10 tab s 03/03/25 (Dilaudid) Allergies Allergy/AdvReac Type Severity Reaction Status Date / Time hydroxychloroquine Allergy Severe Anaphylaxis Verified 03/03/25 17:58 metaxalone (From Skelaxin) Allergy Severe Anaphylaxis Verified 03/03/25 17:58 sertraline Allergy Severe Anaphylaxis Verified 03/03/25 17:58 Sulfa (Sulfonamide Allergy Severe Anaphylaxis Verified 03/03/25 17:58 Antibiotics) tramadol Allergy Severe Anaphylaxis Verified 03/03/25 17:58 bupropion Allergy Verified 03/03/25 17:58 diphenhydramine Allergy Verified 03/03/25 17:58 duloxetine Allergy Verified 03/03/25 17:58 lamotrigine Allergy Verified 03/03/25 17:58 oxycodone Allergy Verified 03/03/25 17:58 promethazine (From Phenergan) Allergy Verified 03/03/25 17:58 ketorolac (From Toradol) AdvReac Intermediate Hypertensio Verified 03/03/25 17:58 n benzonatate AdvReac Mild Verified 03/03/25 17:58 amoxicillin AdvReac Verified 03/03/25 17:58 citalopram AdvReac Verified 03/03/25 17:58 haloperidol AdvReac Verified 03/03/25 17:58 metoclopramide (From Reglan) AdvReac Verified 03/03/25 17:58 naproxen AdvReac Verified 03/03/25 17:58 pregabalin AdvReac Verified 03/03/25 17:58 prochlorperazine AdvReac Verified 03/03/25 17:58 quetiapine AdvReac Verified 03/03/25 17:58 spironolactone AdvReac Verified 03/03/25 17:58 Review of Systems Review of Systems ROS Unobtainable: All systems reviewed & are unremarkable except as noted in HPI and below Patient History Medical History Restless legs Irritable bowel Headache Social History household members: spouse alcohol intake: current tobacco type: vaping alcohol intake frequency: holidays/special occasions only Exam Narrative Exam Narrative: GENERAL: [59] year old patient appears stated age. Well-developed patient, in mild distress. HEAD: Atraumatic. Normocephalic. EYES: Pupils equal round and reactive. Extraocular motions intact. No scleral icterus. No injection or drainage. NECK: Trachea midline. Non tender CARDIOVASCULAR: Regular rate and rhythm without murmurs, gallops, or rubs. RESPIRATORY: Clear to auscultation. Breath sounds equal bilaterally. No wheezes, rales, or rhonchi. EXTREMITIES: No edema or joint tenderness. BACK: Tenderness to palpation right lateral lumbar spine no step-off or deformities present. Tenderness to palpation right posterior pelvis as well as right lateral hip and proximal right femur neurovascular intact right lower extremity +2 DP +2 PT cap refill less than 2 seconds 5/5 bilateral lower extremity strength NEURO: AOx3. SKIN: No rash or erythema of visible areas Initial Vital Signs Initial Vital Signs: Vital Signs Temperature 98 F 03/03/25 17:58 Pulse Rate 89 03/03/25 17:58 Respiratory Rate 17 03/03/25 17:58 Blood Pressure 190/115 H 03/03/25 17:58 Pulse Oximetry 99 03/03/25 17:58 Oxygen Delivery Method Room Air 03/03/25 17:58 Course Orders Ordered: ED Orders 03/03/25 18:50 CT head/brain wo con Stat XR chest 1V Stat EKG-12 Lead Stat 03/03/25 19:11 Complete Blood Count AUTO DIFF Stat Comprehensive Metabolic Panel Stat Lipase Stat Magnesium Stat NT-proBNP (BNP-Adult 18+) Stat Troponin I Stat Discontinued Medications Hydromorphone HCl (Hydromorphone 1 Mg/Ml Syringe) 1 mg IM NOW ONE Stop: 03/03/25 18:16 Last Admin: 03/03/25 19:08 Dose: 1 mg Documented By: CHRIS Hydromorphone HCl (Hydromorphone 1 Mg/Ml Syringe) 1 mg IV NOW ONE Stop: 03/03/25 20:03 Last Admin: 03/03/25 20:09 Dose: 1 mg Documented By: SHIRLENE Morphine Sulfate (Morphine 4 Mg/Ml Inj) 4 mg IV NOW ONE Stop: 03/03/25 21:50 Last Admin: 03/03/25 21:58 Dose: 4 mg Documented By: LEXI Vital Signs Vital signs: Vital Signs - 8 hr 03/03/25 17:58 03/03/25 18:46 03/03/25 18:51 Temperature 98 F Pulse Rate 89 86 Respiratory Rate 17 Blood Pressure 190/115 H 208/110 H Pulse Oximetry 99 98 Oxygen Delivery Method Room Air 03/03/25 19:00 03/03/25 19:15 03/03/25 19:15 Temperature Pulse Rate 83 88 Respiratory Rate Blood Pressure 164/107 H Pulse Oximetry 97 99 Oxygen Delivery Method MDM - Extremity Injury (Lower) Lab Data 03/03/25 19:11 03/03/25 19:11 Labs: Lab Results 03/03/25 Range/Units 19:11 WBC 6.9 (4.5-11.0) X10^3/uL RBC 4.69 (4.0-5.2) X10^6/uL Hgb 13.5 (12.0-16.0) g/dL Hct 39.5 (36-46) % MCV 84.3 (80-100) fL MCH 28.7 (26-34) PG MCHC 34.0 (30-36) % RDW 14.2 (11.6-14.8) % Plt Count 198 (150-400) X10^3/uL Neut % (Auto) 58.9 (50-75) % Lymph % (Auto) 31.6 (25-40) % [place] % (Auto) 7.2 (3-14) % Eos % (Auto) 1.8 L (2-4) % Baso % (Auto) 0.5 (0-2) % Neut # (Auto) 4100 (3753-9619) /uL Lymph # (Auto) 2200 (3943-4463) /uL [place] # (Auto) 500 (0-900) /uL Eos # (Auto) 100 (0-450) /uL Baso # (Auto) 0 (0-100) /uL Sodium 139 (137-145) mmol/L Potassium 4.1 (3.4-5.1) mmol/L Chloride 103 (98-107) mmol/L Carbon Dioxide 25 (22-32) mmol/L BUN 15 (7-17) mg/dL Creatinine 0.68 (0.52-1.04) mg/dL Estimated GFR > 60 (>60) mL/min BUN/Creatinine Ratio 22.1 H (6-22) Glucose 107 H (70-99) mg/dL Calcium 9.3 (8.4-10.2) mg/dL Magnesium 1.9 (1.6-2.3) mg/dL Total Bilirubin 0.4 (0.2-1.3) mg/dL AST 46 H (14-36) IU/L ALT 65 H (<35) IU/L Alkaline Phosphatase 149 H (38-126) U/L Troponin I < 0.012 (0.01-0.034) ng/mL NT-Pro-B Natriuret Pep 41 (<125) pg/mL Total Protein 8.8 H (6.3-8.2) g/dL Albumin 4.8 (3.5-5.0) g/dL Globulin 4.0 (1.7-4.1) g/dL Albumin/Globulin Ratio 1.2 (1.0-2.8) Lipase 54 (23-300) U/L Urine Dip Bedside Urine Glucose Negative Bedside Urine Bilirubin - Negative Bedside Urine Ketone - Negative Urine Specific [place] 1.015 Bedside Urine Occult Blood - Negative Bedside Urine pH 6.0 Bedside Urine Protein - Negative Bedside Urine Urobilinogen - Negative Bedside Urine Nitrite - Negative Bedside Urine Leukocytes - Negative Esterase Imaging Data Chest x-ray: Radiologist's Impression: [address] [address] XRay Report Signed Patient: Samra Abdullahi MR#: [id number] : 1965 Acct:[id number] Age/Sex: 59 / F Date of Service: 03/03/25 Loc: ED Accession Number: [id number] Procedure: XR chest 1V Ordering Provider: Александр Witt D.O. PROCEDURE: XR CHEST 1V INDICATIONS: elevated blood pressure headache TECHNIQUE: One view of the chest was acquired. COMPARISON: [facility], CR, XR CHEST 1V, 11/30/2023, 17:04. FINDINGS: Surgical changes and devices: None. Lungs and pleura: Lungs are clear. No pleural effusions or pneumothorax. Mediastinum: Mediastinal contours appear normal. Heart size is normal. Bones and chest wall: No suspicious bony lesions. Overlying soft tissues appear unremarkable. IMPRESSION: No acute cardiopulmonary abnormality is seen. Approved by: Kathrine Gottlieb M.D.,Ph.D. on 03/03/2025 at 19:44 ECG Data Interpretation: NSR HR 80 OR [address] QRS [address]-t wave change Unchanged from 12/02/23 MDM Narrative Medical decision making narrative: All lab work, vital signs, nurse triage note, medication list, previous ER visits, and all imaging studies reviewed. [facility]. X- ray of the femur showed no acute process CT pelvis showed status post SI joint implant without evidence of hardware complication no acute fracture dislocation seen in the pelvis. CT lumbar spine no acute fracture or traumatic subluxation mild degenerative changes. WBC 6.9 hemoglobin 13.5 platelet 190 sodium 139 potassium 4 point chloride 103 CO2 25 BUN 15 creatinine 0.68 glucose 107 AST 46 ALT 65 alk-phos 149 lipase 54. Troponin less than 0.012 BNP 41 Chest x-ray showed no acute process. Urine is normal. DC home to follow up with Dr. Suh to f/u at upcoming appointment. Dilaudid #10 rx given Discharge Plan Departure Patient Disposition: Home Clinical Impression: Hypertensive urgency, Low back pain Instructions: DI for Low Back Pain Activity Restrictions/Additional Instructions: Return with new or worsening symptoms. Follow up with at your next scheduled appointment. Take medication for breakthrough pain. Prescriptions: New hydromorphone [Dilaudid] 2 mg tablet 2 mg PO Q6H PRN (Reason: pain) Qty: 10 0RF No Action lidocaine 5 % adhesive patch,medicated 1 patch topical DAILY PRN (Reason: pain ) Qty: 15 0RF Rx Instructions: leave on most painful area for up to 12 hrs ondansetron 4 mg tablet,disintegrating 4 mg PO Q8H PRN (Reason: nausea and vomiting) Qty: 10 0RF pramipexole 0.25 mg tablet 1 mg PO ONCE PM levothyroxine 200 mcg tablet 200 mcg PO DAILY hydromorphone 2 mg tablet 2 mg PO Q6H PRN (Reason: pain) Qty: 20 0RF ondansetron 4 mg tablet,disintegrating 4 mg PO Q8H PRN (Reason: nausea and vomiting) Qty: 30 0RF clonazepam 0.5 mg tablet 0.5 mg PO 3XD PRN (Reason: anxiety) Ozempic 2 mg/dose (8 mg/3 mL) pen injector 2 mg SUBCUT WEEKLY hydrocodone-acetaminophen 10-325 mg tablet 2 tab PO BID PRN (Reason: severe back pain) Qty: 20 0RF diazepam [Valium] 5 mg tablet 5 mg PO Q4HR PRN (Reason: muscle spasm) Rx Instructions: 5 mg orally PRN; sennosides [senna] 8.6 mg Tablet 8.6 mg PO DAILY Qty: 30 0RF polyethylene glycol 3350 17 gram Powder In Packet 17 gm PO DAILY Qty: 30 0RF Referrals: Enrike Carvajal PA-C [Primary Care Provider, Medical] Stand Alone Forms: Patient Portal/API
--- NOTE | 2025-03-03 18:50 | DI.RAD.S_ITS ---
PROCEDURE: XR CHEST 1V INDICATIONS: elevated blood pressure headache TECHNIQUE: One view of the chest was acquired. COMPARISON: [facility], , XR CHEST 1V, 11/30/2023, 17:04. FINDINGS: Surgical changes and devices: None. Lungs and pleura: Lungs are clear. No pleural effusions or pneumothorax. Mediastinum: Mediastinal contours appear normal. Heart size is normal. Bones and chest wall: No suspicious bony lesions. Overlying soft tissues appear unremarkable. IMPRESSION: No acute cardiopulmonary abnormality is seen. Approved by: Kathrine Gottlieb M.D.,Ph.D. on 03/03/2025 at 19:44
--- NOTE | 2025-03-03 18:50 | EKG_ITS ---
[address] [address] Test Date: 2025-03-03 Pat Name: Samra Abdullahi Department: [facility] Room: Gender: Female Senior Risk Manager: APOLINAR : 1965 Requested By: Order Number: [id number] Reading MD: Antonio Krause Measurements Intervals [place] Rate: 80 P: 52 PA: 150 QRS: 60 QRSD: 86 T: 37 QT: 392 QTc: 452 Interpretive Statements Normal sinus rhythm Nonspecific T wave abnormality Electronically Signed On 03-06-2025 12:56:39 PST by Antonio Krause
--- NOTE | 2025-03-03 18:50 | DI.CT.S_ITS ---
PROCEDURE: CT HEAD/BRAIN WO CON INDICATIONS: elevated blood pressure headache TECHNIQUE: Noncontrast 4.5 mm thick angled axial sections acquired from the foramen magnum to the vertex, with coronal and sagittal reformats. For radiation dose reduction, the following was used: automated exposure control, adjustment of mA and/or kV according to patient size. COMPARISON: [facility], CT, CT HEAD/BRAIN WO CON, 03/03/2023, 18:37. FINDINGS: Image quality: Diagnostic. CSF spaces: Basal cisterns are patent. No extra-axial fluid collections. Ventricles are normal in size and shape. Brain: No midline shift. No intracranial mass effect or hemorrhage. [place]- white matter interface is normal. Skull and face: Calvarium and visualized facial bones are intact, without suspicious lesions. Sinuses: Visualized sinuses and mastoids are clear. IMPRESSION: No acute intracranial pathology. Dictated by: Lenka Cui M.D. on 03/03/2025 at 20:55 Approved by: Lenka Cui M.D. on 03/03/2025 at 20:58
[2025-03-03 19:41] LABS: Alanine Aminotransferase 65 IU/L (<35); Albumin 4.8 g/dL (3.5-5.0); Albumin Globulin Ratio 1.2 (1.0-2.8); Alkaline Phosphatase 149 U/L (38-126); Blood Urea Nitrogen 15 mg/dL (7-17); Calcium 9.3 mg/dL (8.4-10.2); Carbon Dioxide 25 mmol/L (22-32); Chloride 103 mmol/L (98-107); Estimated Glomerular Filt Rate > 60 mL/min (>60); Globulin 4.0 g/dL (1.7-4.1); Glucose 107 mg/dL (70-99); HEMOLYSIS < 15 (0-50); Lipase 54 U/L (23-300); Magnesium 1.9 mg/dL (1.6-2.3); Potassium 4.1 mmol/L (3.4-5.1); Sodium 139 mmol/L (137-145); Total Protein 8.8 g/dL (6.3-8.2)
[2025-03-03 19:43] LABS: Add Manual Diff / Slide Review NO; Hematocrit 39.5 % (36-46); Hemoglobin 13.5 g/dL (12.0-16.0); Lymphocytes Absolute Auto 2200 /uL (1100-4500); Mean Corpuscular HGB Conc 34.0 % (30-36); Mean Corpuscular Hemoglobin 28.7 PG (26-34); Mean Corpuscular Volume 84.3 fL (80-100); Platelet Count 198 X10^3/uL (150-400)
--- NOTE | 2025-03-03 19:43 | PC.NURSE ---
Shift handoff report received from Wanda Starks RN
[2025-03-03 19:52] LABS: NT-proBNP (BNP-Adult 18+) 41 pg/mL (<125); Troponin I < 0.012 ng/mL (0.01-0.034)
[2025-03-03] MEDS: MORPHINE 4 MG/ML INJ IV (21:58)
== END 2025-03-03 22:29 | disposition home or self-care (01) ==
PROVIDERS: Emergency Provider Family Medicine; PCP Student in an Organized Health Care Education/Training Program
DX: M54.50 Low back pain, unspecified (principal); I16.0 Hypertensive urgency; Z98.890 Other specified postprocedural states
CPT/HCPCS: 36415; 70450; 71045; 80053; 81003; 83690; 83735; 83880; 84484; 85025; 93005; 96372; 96374; 96375; 99284; J1171; J2272